=== PATIENT | male | born 1965 | race Caucasian/White ===

== ENCOUNTER 2020-04-19 07:31 | Observation (INO) | payer OTHER ==
--- NOTE | 2020-04-19 07:50 | RAD REPORT ---
EXAM DESCRIPTION: CT - Ct Stroke Brain Wo Cont - 04/19/2020 7:41 am CLINICAL HISTORY: Slurred speech COMPARISON: none TECHNIQUE: Computed axial tomography of the head was obtained. All CT scans are performed using dose optimization technique as appropriate and may include automated exposure control or mA/KV adjustment according to patient size. FINDINGS: An intracranial bleed is not seen . The ventricles are normal in caliber. No extra-axial fluid collection is noted. A small low-density area within the right cerebellum may represent an old infarction. Fluid within the sinuses/ mastoids is not seen. IMPRESSION: No acute intracranial abnormality is seen. If patient's symptoms persist MRI of the bra in would be recommended. Nilesh of the emergency room was notified at 7:44 a.m. April 19, 2020
[2020-04-19 08:13] LABS: Absolute Lymphocytes (CBC) 3.3 K/uL (0.7-4.9); Basophils % 0.4 % (0-1.3); Hematocrit 43.9 % (39.6-49.0); Lymphocytes % 39.9 % (15.3-44.8); MPV 10.1 fL (7.6-11.3); RBC Red Blood Cell Count 4.73 M/uL (4.33-5.43)
--- NOTE | 2020-04-19 08:14 | ER ---
Nurse's Notes [facility] Name: Rashid Sim Age: 54 yrs Sex: Male : 1965 Arrival Date: 04/19/2020 Time: 07:29 Bed 2 Private MD: Diagnosis: Transient cerebral ischemic attack, unspecified Presentation: 04/19 07:30 An acute neurological deficit is present. The patients blood glucose was checked before em arriving to the hospital and was found to be normal. 07:40 Chief complaint: EMS states: called out for slurred speech and right sided weakness em that started after his alarm went off at 0630, was having trouble speaking and had left sided facial droop, pt was having trouble speaking and became nauseous, was given 4 mg Zofran IV, pt taken to CT, BGL 158. Coronavirus screen: Proceed with normal triage. Patient denies a cough. Patient denies shortness of breath or difficulty breathing. Patient denies measured and/or subjective temperature greater than 100.4F prior to today's visit. Patient denies travel on a cruise ship or to a country the [facility] currently lists as an affected area. Patient denies contact with known and/or suspected case of COVID-19. Ebola Screen: Patient negative for fever greater than or equal to 101.5 degrees Fahrenheit, and additional compatible Ebola Virus Disease symptoms Patient denies exposure to infectious person. Patient denies travel to an Ebola-affected area in the 21 days before illness onset. No symptoms or risks identified at this time. Initial Sepsis Screen: Does the patient meet any 2 criteria? No. Patient's initial sepsis screen is negative. Does the patient have a suspected source of infection? No. Patient's initial sepsis screen is negative. Risk Assessment: Do you want to hurt yourself or someone else? Patient reports no desire to harm self or others. Onset of symptoms was April 19, 2020 at 06:30. 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 - Social history:: Smoking status: unknown. Screenin:43 Abuse screen: Denies threats or abuse. Denies injuries from another. Nutritional ph screening: No deficits noted. Tuberculosis screening: No symptoms or risk factors identified. Fall Risk No fall in past 12 months (0 pts). No secondary diagnosis (0 pts). IV access (20 points). Ambulatory Aid- None/Bed Rest/Nurse Assist (0 pts). Gait- Weak (10 pts.). Mental Status- Oriented to own ability (0 pts). Total Cowan Fall Scale indicates Low Risk Score (25-44 pts). Fall prevention measures have been instituted. Side Rails Up X 2 Frequent Obs/Assesments occuring As available Patient and Family Educated on Fall Prevention Program and strategies. Assessment: 07:29 Reassessment: Pt taken to CT via EMS stretcher, accompanied by Zurdo Velázquez RN. aa5 07:30 VAN Scoring: Arm Drift: Patients demonstrates NO arm weakness. Patient is VAN Negative. em Patient has been NPO before screening. The patient is alert, and able to follow commands. The patient exhibits slurred or garbled speech. Provider notified of the indication for Speech Therapy consult. The patient is exhibiting difficulty speaking. The patient does not exhibit difficulty understanding words. The patient is able to swallow own secretions with no drooling or need for suction. Patient tolerated one teaspoon of water. No drooling, immediate coughing, gurgling, or clearing of the throat was noted. The patient passed the bedside swallow screening. Oral medications may be given as ordered. Contact Physician for further diet orders. Provider notified of bedside swallow screening results: Isaac Starr MD. T-PA (Activase) Screening: Contraindications: Rapidly improving condition or minor deficit: Yes. 07:30 General: Appears uncomfortable, well groomed, well developed, well nourished, Behavior em is flat. Pain: Denies pain. Neuro: Level of Consciousness is awake, alert, obeys commands, Oriented to person, place, time, situation, Appropriate for age Weakness in right arm(s) leg(s) Speech is slurred. Cardiovascular: Capillary refill < 3 seconds Patient's skin is warm and dry. Respiratory: Airway is patent Respiratory effort is even, unlabored, Respiratory pattern is regular, symmetrical. GI: Abdomen is flat, Reports nausea, Patient currently denies vomiting. Derm: Skin is intact, is healthy with good turgor, Skin is pink, warm \T\ dry. Musculoskeletal: Capillary refill < 3 seconds, Range of motion: intact in all extremities. 07:41 Reassessment: Patient appears in no apparent distress at this time. dr Starr at bedside to assess pt, initial labs drawn by phlebotomy. 08:00 Reassessment: Patient appears in no apparent distress at this time. Patient is alert, em oriented x 3, equal unlabored respirations, skin warm/dry/pink. Patient states symptoms have improved. 08:50 Reassessment: Patient appears in no apparent distress at this time. Patient and/or em family updated on plan of care and expected duration. Pain level reassessed. Patient is alert, oriented x 3, equal unlabored respirations, skin warm/dry/pink. Patient states feeling better. 10:23 Reassessment: Patient appears in no apparent distress at this time. Patient and/or em family updated on plan of care and expected duration. Pain level reassessed. Patient is alert, oriented x 3, equal unlabored respirations, skin warm/dry/pink. 11:00 Reassessment: Patient appears in no apparent distress at this time. Patient and/or em family updated on plan of care and expected duration. Pain level reassessed. Patient is alert, oriented x 3, equal unlabored respirations, skin warm/dry/pink. 12:00 Reassessment: Patient appears in no apparent distress at this time. Patient and/or em family updated on plan of care and expected duration. Pain level reassessed. Patient is alert, oriented x 3, equal unlabored respirations, skin warm/dry/pink. Vital Signs: 07:42 BP 151 / 90; Pulse 75; Resp 16; Temp 97.2; Pulse Ox 100% on R/A; ph 09:34 BP 141 / 89; Pulse 58; Resp 18; Pulse Ox 97% on R/A; Pain 0/10; em 10:23 BP 146 / 92; Pulse 57; Resp 18; Pulse Ox 99% on R/A; em 11:00 BP 147 / 90; Pulse 54; Resp 18; Pulse Ox 98% on R/A; Pain 0/10; em 12:00 BP 135 / 62; Pulse 64; Resp 18; Pulse Ox 97% on R/A; em NIH Stroke Scale Scores: 07:30 NIHSS Score: 2 em ED Course: 07:29 Patient arrived in ED. em 07:30 Isaac Starr MD is Attending Physician. mh7 07:39 Zurdo Velázquez, ROSEANN is Primary Nurse. em 07:42 CT Stroke Brain w/o Contrast In Process Unspecified. EDMS 07:42 Arm band placed on Patient placed in an exam room, on a stretcher, on radiation monitor, ph on pulse oximetry. 07:43 Patient has correct armband on for positive identification. Placed in gown. Bed in low ph position. Call light in reach. Side rails up X2. monitoring and evaluation advisor on. Pulse ox on. NIBP on. Door closed. Noise minimized. Warm blanket given. 07:44 Triage completed. em 07:55 Initial lab(s) drawn, by wastewater analyst lab analyst, sent to lab. Inserted saline lock: 20 gauge in left ph forearm, using aseptic technique. Blood collected. 08:08 Stroke CXR 1 View In Process Unspecified. EDMS 08:11 Bart Anderson DO is Hospitalizing Provider. mh7 08:36 ETOH Level Sent. em 13:06 No provider procedures requiring assistance completed. IV discontinued, intact, em bleeding controlled, No redness/swelling at site. Pressure dressing applied. Administered Medications: 08:50 Drug: Aspirin Chewable Tablet 162 mg Route: PO; em 09:34 Follow up: Response: No adverse reaction em Point of Care Testing: Blood Glucose: 08:04 Blood Glucose: 153 mg/dL; em Ranges: Outcome: 08:13 Decision to Hospitalize by Provider. mh7 13:06 Admitted to Tele accompanied by tech, via stretcher, with chart, Report called to jagdish Georges RN 13:06 Condition: good 13:06 Instructed on the need for admit, Demonstrated understanding of instructions. 13:07 Patient left the ED. em NIH Stroke Scale - NIH Stroke Score Date: 04/19/2020 Time: 07:30 Total Score = 2 1a. Level of Consciousness (LOC) - 0(Alert) 1b. Level of Consciousness (LOC) (Year \T\ Age) - 0(Both) 1c. LOC Commands (Open \T\ Closes Eyes/Sales And Service Officer) - 0(Both) 2. Best Gaze (Lateral Gaze Paresis) - 0(Normal) 3. Visual Field Loss - 0(No visual loss) 4. Facial Palsy - 0(Normal) 5a. Left Arm: Motor (10-second hold) - 0(No drift) 5b. Right Arm: Motor (10-second hold) - 0(No drift) 6a. Left Leg: Motor (5-second hold - always test supine) - 0(No drift) 6b. Right Leg: Motor (5-second hold - always test supine) - 0(No drift) 7. Limb Ataxia (finger/nose \T\ heel/carney - test with eyes open) - 0(Absent) 8. Sensory Loss (pinprick arms/legs/face) - 0(Normal) 9. Best Language: Aphasia (description/naming/reading) - 1(Mild to moderate aphasia) 10. Dysarthria (speech clarity - read or repeat words) - 1(Mild to Moderate) 11. Extinction and Inattention (visual/tactile/auditory/spatial/personal) - 0(No abnormality) Initials: em Signatures: Dispatcher [employer] Zurdo Tapia RN ROSEANN em Tanehsa Narayan RN ROSEANN [email or web address] Radha Jackson RN RN ph Holmes, Maurice, MD MD mh7 Corrections: (The following items were deleted from the chart) 07:49 07:40 Chief complaint: EMS states: called out for slurred speech and right em sided weakness that started after his alarm went off at 0630, was having trouble speaking and had left sided facial droop, pt was having trouble speaking and became nauseous, was given 4 mg Zofran IV, pt taken to CT em
--- NOTE | 2020-04-19 08:14 | EDPHYS ---
Physician Documentation [facility] Name: Rashid Sim Age: 54 yrs Sex: Male : 1965 Arrival Date: 04/19/2020 Time: 07:29 Bed 2 Private MD: ED Physician Isaac Starr HPI: 04/19 07:50 This 54 yrs old Male presents to ER via EMS with complaints of S/S of mh7 Possible Stroke. 07:50 The patient's problem is reported as weakness, in the right upper extremity, in the mh7 right lower extremity. Onset: The symptoms/episode began/occurred this morning. Duration: This was a single incident. Context: the episode(s) was witnessed, by EMS personnel, by a significant other, symptoms became apparent occurred at home, occurred while the patient was lying down, Possible contributing factors include:. The symptoms are alleviated by nothing. The symptoms are aggravated by nothing. Severity of symptoms: At their worst the symptoms were severe this morning, in the emergency department the symptoms have resolved and did so just prior to arrival. Patient's baseline: Neuro: alert and fully oriented, Motor: no deficits, Ambulation: walks without assistance, Speech: normal. Patient states that his alarm went off at 6:30 am this morning. He then pressed the snooze button to sleep longer. When the alarm went off again he could not move the right side of his body. EMS on scene observed right side being flacid and slurred speech. They state that symptoms improved within five minutes and patient was able to move his right side without difficulty. He states that he was doing well yesterday and has never had this happen in the past.. 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 - Social history:: Smoking status: unknown. ROS: 07:50 Constitutional: Negative for fever, chills, and weight loss, Eyes: Negative for injury, mh7 pain, redness, and discharge, ENT: Negative for injury, pain, and discharge, Neck: Negative for injury, pain, and swelling, Cardiovascular: Negative for chest pain, palpitations, and edema, Respiratory: Negative for shortness of breath, cough, wheezing, and pleuritic chest pain, Abdomen/GI: Negative for abdominal pain, nausea, vomiting, diarrhea, and constipation, Back: Negative for injury and pain, : Negative for injury, bleeding, discharge, and swelling, MS/Extremity: Negative for injury and deformity, Skin: Negative for injury, rash, and discoloration, Psych: Negative for depression, anxiety, suicide ideation, homicidal ideation, and hallucinations, Allergy/Immunology: Negative for hives, rash, and allergies, Endocrine: Negative for neck swelling, polydipsia, polyuria, polyphagia, and marked weight changes, Hematologic/Lymphatic: Negative for swollen nodes, abnormal bleeding, and unusual bruising. Exam: 07:50 Radiologist reports: Negative mh7 07:50 Constitutional: This is a well developed, well nourished patient who is awake, alert, and in no acute distress. Head/Face: Normocephalic, atraumatic. Eyes: Pupils equal round and reactive to light, extra-ocular motions intact. Lids and lashes normal. Conjunctiva and sclera are non-icteric and not injected. Cornea within normal limits. Periorbital areas with no swelling, redness, or edema. ENT: Nares patent. No nasal discharge, no septal abnormalities noted. Tympanic membranes are normal and external auditory canals are clear. Oropharynx with no redness, swelling, or masses, exudates, or evidence of obstruction, uvula midline. Mucous membranes moist. Neck: Trachea midline, no thyromegaly or masses palpated, and no cervical lymphadenopathy. Supple, full range of motion without nuchal rigidity, or vertebral point tenderness. No Meningismus. Chest/axilla: Normal chest wall appearance and motion. Nontender with no deformity. No lesions are appreciated. Cardiovascular: Regular rate and rhythm with a normal S1 and S2. No gallops, murmurs, or rubs. Normal PMI, no JVD. No pulse deficits. Respiratory: Lungs have equal breath sounds bilaterally, clear to auscultation and percussion. No rales, rhonchi or wheezes noted. No increased work of breathing, no retractions or nasal flaring. Abdomen/GI: Soft, non-tender, with normal bowel sounds. No distension or tympany. No guarding or rebound. No evidence of tenderness throughout. Back: No spinal tenderness. No costovertebral tenderness. Full range of motion. Skin: Warm, dry with normal turgor. Normal color with no rashes, no lesions, and no evidence of cellulitis. MS/ Extremity: Pulses equal, no cyanosis. Neurovascular intact. Full, normal range of motion. 07:50 Psych: Awake, alert, with orientation to person, place and time. Behavior, mood, and affect are within normal limits. 07:50 Neuro: Orientation: is normal, Mentation: is normal, Memory: is normal, Cranial nerves: CN II- XII are normal as tested, Cerebellar function: is grossly normal, Motor: is normal, moves all fours, strength is normal, Sensation: is normal, Deep tendon reflexes are normal, Babinski testing is normal, seizure activity, is not displayed by the patient, Abnormal movements: there are no abnormal movements. 08:15 ECG was reviewed by the Attending Physician. [facility] Vital Signs: 07:42 BP 151 / 90; Pulse 75; Resp 16; Temp 97.2; Pulse Ox 100% on R/A; ph 09:34 BP 141 / 89; Pulse 58; Resp 18; Pulse Ox 97% on R/A; Pain 0/10; em 10:23 BP 146 / 92; Pulse 57; Resp 18; Pulse Ox 99% on R/A; em 11:00 BP 147 / 90; Pulse 54; Resp 18; Pulse Ox 98% on R/A; Pain 0/10; em 12:00 BP 135 / 62; Pulse 64; Resp 18; Pulse Ox 97% on R/A; em NIH Stroke Scale Scores: 07:30 NIHSS Score: 2 em MDM: 07:47 Patient medically screened. [facility] 08:09 Differential diagnosis: CVA, TIA, paralysis, metabolic disorder, drug effects. Data [facility] reviewed: vital signs, nurses notes, EMS record, radiologic studies, CT scan, plain films. Physician consultation: Navi Ramos MD was called at 07:50, was contacted at 07:51, regarding consult, patient's condition, and will see patient in inpatient room, would like admission per Dr. Bart Anderson DO. 08:15 Data interpreted: security monitor: rate is 75 beats/min, rhythm is normal sinus rhythm, [facility] regular, Interpretation: normal rate, normal rhythm, Pulse oximetry: on room air is 100 %. Interpretation: normal. 10:27 Counseling: I had a detailed discussion with the patient and/or guardian regarding: the [facility] historical points, exam findings, and any diagnostic results supporting the discharge/admit diagnosis, the presence of at least one elevated blood pressure reading (>120/80) during this emergency department visit, lab results, radiology results, the need for further work-up and treatment in the hospital. ED course: Well appearing, NAD, VSS, no focal neurological deficits. Awake, alert, and oriented x 3. Discussed all test results and findings and need for admission for further care and evaluation. Discussed with Dr. Ramos for Neurology consultation and Dr. Anderson for admission.. 04/19 07:30 Order name: Basic Metabolic Panel 04/19 07:30 Order name: CBC with Diff; Complete Time: 08:29 04/19 07:30 Order name: Protime (+inr); Complete Time: 08:29 04/19 07:30 Order name: Ptt, Activated; Complete Time: 08:29 04/19 07:32 Order name: Basic Metabolic Panel; Complete Time: 08:29 [facility] 04/19 07:49 Order name: UDS [facility] 04/19 07:49 Order name: Troponin (emerg Dept Use Only); Complete Time: 08:54 [facility] 04/19 07:49 Order name: Magnesium; Complete Time: 08:54 [facility] 04/19 07:49 Order name: Hepatic Function; Complete Time: 08:54 [facility] 04/19 07:49 Order name: CPK; Complete Time: 08:54 [facility] 04/19 07:49 Order name: Ckmb; Complete Time: 08:54 [facility] 04/19 07:49 Order name: ETOH Level; Complete Time: 08:54 [facility] 04/19 08:05 Order name: Glucose, Ancillary Testing; Complete Time: 08:14 [facility] 04/19 13:01 Order name: Lipid Profile [facility] 04/19 07:30 Order name: CT Stroke Brain w/o Contrast; Complete Time: 08:14 04/19 07:30 Order name: Stroke CXR 1 View 04/19 07:30 Order name: EKG; Complete Time: 07:32 04/19 07:30 Order name: Accucheck; Complete Time: 07:55 04/19 07:30 Order name: Cardiac monitoring; Complete Time: 07:55 04/19 07:30 Order name: EKG - Nurse/Tech; Complete Time: 07:56 em 04/19 07:30 Order name: IV Saline Lock; Complete Time: 07:56 em 04/19 07:30 Order name: Labs collected and sent; Complete Time: 07:56 em 04/19 07:30 Order name: NPO; Complete Time: 07:56 em 04/19 07:30 Order name: O2 Per Protocol; Complete Time: 07:56 em 04/19 07:30 Order name: O2 Sat Monitoring; Complete Time: 07:56 em 04/19 07:49 Order name: Call for Old Records; Complete Time: 07:52 mh7 04/19 07:49 Order name: Call for Old EKG; Complete Time: 07:52 7 04/19 13:01 Order name: T4,Total EDMS 04/19 13:01 Order name: Thyroid Stimulating Hormone EDMS EC:15 Rate is 63 beats/min. Rhythm is regular. QRS [place] is Normal. [place] interval is normal. QRS mh7 interval is normal. QT interval is normal. No Q waves. T waves are Normal. No ST changes noted. Clinical impression: Normal ECG. Administered Medications: 08:50 Drug: Aspirin Chewable Tablet 162 mg Route: PO; em 09:34 Follow up: Response: No adverse reaction em Point of Care Testing: Blood Glucose: 08:04 Blood Glucose: 153 mg/dL; em Ranges: Critical Glucose Levels:Adult <50 mg/dl or >400 mg/dl <40 mg/dl or >180 mg/dl Disposition: 04/19/20 08:13 Hospitalization ordered by Bart Anderson for Inpatient Admission. Preliminary diagnosis is Transient cerebral ischemic attack, unspecified. - Bed requested for Telemetry/MedSurg (Inpatient). - Status is Inpatient Admission. em - Condition is Stable. - Problem is new. - Symptoms have improved. NIH Stroke Scale - NIH Stroke Score Date: 04/19/2020 Time: 07:30 Total Score = 2 1a. Level of Consciousness (LOC) - 0(Alert) 1b. Level of Consciousness (LOC) (Year \T\ Age) - 0(Both) 1c. LOC Commands (Open \T\ Closes Eyes/Associate Engineer) - 0(Both) 2. Best Gaze (Lateral Gaze Paresis) - 0(Normal) 3. Visual Field Loss - 0(No visual loss) 4. Facial Palsy - 0(Normal) 5a. Left Arm: Motor (10-second hold) - 0(No drift) 5b. Right Arm: Motor (10-second hold) - 0(No drift) 6a. Left Leg: Motor (5-second hold - always test supine) - 0(No drift) 6b. Right Leg: Motor (5-second hold - always test supine) - 0(No drift) 7. Limb Ataxia (finger/nose \T\ heel/carney - test with eyes open) - 0(Absent) 8. Sensory Loss (pinprick arms/legs/face) - 0(Normal) 9. Best Language: Aphasia (description/naming/reading) - 1(Mild to moderate aphasia) 10. Dysarthria (speech clarity - read or repeat words) - 1(Mild to Moderate) 11. Extinction and Inattention (visual/tactile/auditory/spatial/personal) - 0(No abnormality) Initials: em Signatures: Dispatcher [employer] Janie Raman RN RN Zurdo Velázquez RN RN Kera Drew Maurice, MD MD mh7 Corrections: (The following items were deleted from the chart) 11: 08:13 Hospitalization Ordered by Bart Anderson DO for Inpatient Admission. dw Preliminary diagnosis is Transient cerebral ischemic attack, unspecified. Bed requested for Telemetry/MedSurg (Inpatient). Status is Inpatient Admission. Condition is Stable. Problem is new. Symptoms have improved. mh7 13:07 11:25 04/19/2020 08:13 Hospitalization Ordered by Bart Anderson DO for em Inpatient Admission. Preliminary diagnosis is Transient cerebral ischemic attack, unspecified. Bed requested for Telemetry/MedSurg (Inpatient). Status is Inpatient Admission. Condition is Stable. Problem is new. Symptoms have improved. dw
[2020-04-19 08:16] LABS: Protime INR 0.91
[2020-04-19 08:25] LABS: Potassium 3.7 mmol/L (3.5-5.1)
[2020-04-19 08:32] LABS: ALT/SGPT 35 U/L (12-78); AST/SGOT 17 U/L (15-37); Albumin 3.6 g/dL (3.4-5.0); Alkaline Phosphatase 52 U/L (45-117); Bilirubin Direct 0.2 mg/dL (0-0.2); Bilirubin Total 0.7 mg/dL (0.2-1.0); CKMB Creatine Kinase MB < 1.0 ng/mL (0.3-3.6); Creatine Phosphokinase 98 U/L (39-308); Magnesium 2.1 mg/dL (1.8-2.4); Protein, Total 7.3 g/dL (6.4-8.2); Troponin (Emerg Dept Use Only) < 0.02 ng/mL (0.0-0.045)
[2020-04-19] MEDS ORDERED: ASPIRIN 81 MG CHEWABLE TABLET ONE (08:46)
--- NOTE | 2020-04-19 08:56 | RAD REPORT ---
EXAM DESCRIPTION: Nuria Single View04/19/2020 8:07 am CLINICAL HISTORY: Chest pain COMPARISON: 2008 FINDINGS: The lungs appear clear of acute infiltrate. The heart is normal size IMPRESSION: No acute abnormalities displayed
--- NOTE | 2020-04-19 08:57 | P.HP ---
Certification for Inpatient Patient admitted to: Observation With expected LOS: <2 Midnights Patient will require the following post-hospital care: None Practitioner: I am a practitioner with admitting privileges, knowledge of patient current condition, hospital course, and medical plan of care. Services: Services provided to patient in accordance with Admission requirements found in Title 42 Section 412.3 of the Code of Federal Regulations Patient History Date of Service: 04/19/20 Primary Care Provider: none Reason for admission: Slurred speech, upper extremity weakness History of Present Illness: 54-year-old male with no prior medical problems presented to the emergency room by EMS after he woke up this morning around 6:30 a.m.. At that time he felt like his blood pressure was elevated. He had some difficulty waking up. He felt anxious. There is report of slurred speech. He reported bilateral upper extremity weakness. He tried to call his for help. When he got up to go to the bathroom he became weak and fell to the floor. He denied any chest pain, shortness of breath, or loss of consciousness. He denies any nausea, vomiting, diarrhea. At that time EMS was called. He was brought in to the emergency room. By the time he arrived to the emergency room his symptoms had resolved. CBC unremarkable. Sodium 141, potassium 3.7. BUN of 18, creatinine 1.05 with a GFR 73. Glucose was a 184. INR within normal range. Blood pressure and vital signs stable. CT scan unremarkable. The patient was admitted for further evaluation and observation. When I saw the patient in the ER, he appeared comfortable. Symptoms have resolved. Home medications list reviewed: Yes - Past Medical/Surgical History Diabetic: No -: Alcohol use Past Surgical History: Patient denies surgical history Psychosocial/ Personal History: Patient is - Family History Family History: Reviewed- Non-Contributory - Social History Smoking Status: Never smoker Alcohol use: Yes CD- Drugs: No Caffeine use: Yes Place of Residence: Home Review of Systems General: Weakness, As per HPI Eyes: Unremarkable ENT: Unremarkable Respiratory: Unremarkable Cardiovascular: Unremarkable Gastrointestinal: Unremarkable Genitourinary: Unremarkable Musculoskeletal: As per HPI Neurological: As per HPI Lymphatics: Unremarkable Physical Examination - Physical Exam General: Alert, In no apparent distress, Oriented x3, Cooperative HEENT: Atraumatic, Normocephalic, PERRLA, Mucous membr. moist/pink Neck: Supple, No Thyromegaly Respiratory: Clear to auscultation bilaterally, Normal air movement Cardiovascular: Normal pulses, Regular rate/rhythm Gastrointestinal: Normal bowel sounds, Soft and benign, Non-distended, No tenderness, No masses, No rebound, No guarding Musculoskeletal: No erythema, No tenderness, No warmth Integumentary: No tenderness/swelling, No erythema, No warmth, No cyanosis Neurological: Normal speech, Normal strength at 5/5 x4 extr, Normal tone, Normal affect - Studies Laboratory Data (last 24 hrs) 04/19/20 07:40: Magnesium 2.1, Total Bilirubin 0.7, AST 17, ALT 35, Alkaline Phosphatase 52 04/19/20 07:40: PT 10.7, INR 0.91, APTT 27.6 04/19/20 07:40: WBC 8.4, Hgb 14.6, Hct 43.9, Plt Count 277 04/19/20 07:40: Sodium 141, Potassium 3.7, BUN 18, Creatinine 1.05, Glucose 184 H Assessment and Plan - Plan Impression: Slurred speech/Bilateral upper extremity weakness secondary to TIA, resolved Hyperglycemia suspect underlying diabetes mellitus type 2 Alcohol use Plan: Slurred speech/Bilateral upper extremity weakness secondary to TIA, resolved: Patient we admitted for further evaluation and observation. Stroke protocol MRI, echocardiogram and carotid Doppler ordered. Stroke protocol to be followed. Will aspirin, Plavix, folic acid. Will hold off on blood pressure medication at this time as blood pressures were stable. Will check fasting lipid panel, tsh, and A1c. Will order physical therapy, occupational therapy evaluate patient. Will consult neurology for further recommendation. If patient does well and workup unremarkable possible discharge later today. Hyperglycemia suspect underlying diabetes mellitus type 2: Blood sugar was slightly elevated this morning. Will check A1c. Will place on sliding scale. Will start ADA diet. Alcohol use: Will check urine drug screen and alcohol level. Cessation education will be provided. Discharge Plan: Home Plan to discharge in: 24 Hours - Advance Directives Does patient have a Living Will: No Does patient have a Durable POA for Healthcare: No - Code Status/Comfort Care Code Status Assessed: Yes (Full code) Time Spent Managing Pts Care (In Minutes): 55
[2020-04-19] MEDS ORDERED: CLOPIDOGREL 75 MG TABLET PO SCH (12:19)
[2020-04-19] MEDS ORDERED: NA CHLORIDE 0.9% 1,000 ML IV SCH (12:19)
[2020-04-19] MEDS ORDERED: ACETAMINOPHEN 500 MG TAB PO PRN (12:19)
[2020-04-19] MEDS ORDERED: ASPIRIN EC 81 MG TAB PO SCH (12:19)
[2020-04-19] MEDS ORDERED: FOLIC ACID 1 MG TABLET PO SCH (12:19)
[2020-04-19] MEDS ORDERED: ONDANSETRON 4 MG/2 ML VIAL IV PRN (12:19)
[2020-04-19] MEDS: INSULIN -REGULAR HUMAN 50 UNIT/0.5 ML ML SQ SCH ×2 (12:19→16:01)
[2020-04-19] MEDS ORDERED: ENOXAPARIN 40 MG/0.4 ML SQ SCH (12:19)
[2020-04-19] MEDS ORDERED: POTASSIUM 25 MEQ EFFERV TAB PO ONE (12:24)
[2020-04-19 13:00] LABS: Thyroid Stimulating Hormone 1.8 uIU/mL (0.360-3.740)
[2020-04-19 13:09] VITALS: BMI 31.3
--- NOTE | 2020-04-19 15:11 | RAD REPORT ---
EXAM DESCRIPTION: - CP - 04/19/2020 2:49 pm CLINICAL HISTORY: TIA COMPARISON: No comparisons TECHNIQUE: Real-time sonographic evaluation of bilateral carotid and vertebral systems was performed . Angel scale and Doppler interrogation were performed with waveform tracing bilaterally. FINDINGS: Normal high resistance waveforms are noted in both external carotid arteries. The common c arotid arteries and internal carotid arteries show normal low resistance waveforms. No significant plaque formation is seen. Peak systolic and end diastolic velocity values and the ICA/ CCA ratios are in the non-hemodynamically significant range. Antegrade flow seen in both vertebral arteries. Velocity values and ratios were recorded and are retained in the patient's imaging records. IMPRESSION: No significant atherosclerotic changes noted. No evidence of a hemodynamically significant stenosis.
--- NOTE | 2020-04-19 15:36 | EKG ---
Test Date: 2020-04-19 Test Time: 08:07:10 Die Stamper: JOY MEASUREMENT RESULTS: Intervals: Rate: 63 UT: 174 QRSD: 98 QT: 446 QTc: 456 Joshua: P: 48 UT: 174 QRS: 21 T: 50 INTERPRETIVE STATEMENTS: Normal sinus rhythm Normal ECG No previous ECG available for comparison Electronically Signed On 04-19-20 15:35:31 CDT by Wilber Downs
[2020-04-19 15:40] VITALS: O2SAT 97
[2020-04-19 15:58] VITALS: TEMP 98.2
--- NOTE | 2020-04-19 16:48 | RAD REPORT ---
EXAM DESCRIPTION: MRI - Brain W/Wo Cont - 04/19/2020 4:11 pm CLINICAL HISTORY: slurred speech; UE weakness COMPARISON: MRA Head Wo Cont dated 04/19/2020; MRA Neck W/Wo Cont dated 04/19/2020 TECHNIQUE: Sagittal and axial T1-weighted images were obtained. Axial PD/heavily T2-weighted and T2- FLAIR images were obtained along with axial DWI/ADC mapping sequences. Coronal heavily T2 weighted s equence obtained. Axial and coronal post-contrast T1-weighted images were also obtained. A 20 ml Mul tihance contrast following utilized. FINDINGS: Diffusion-weighted imaging shows small foci of increased signal in the left cerebellum and a questionable punctate focus posteromedial right occipital lobe. The cerebellum findings have a cor responding diminished signal on ADC mapping. No acute cerebral or brainstem infarctions. No associate d mass effect or edema. No other area of acute infarction. No mass effect, edema or shift of midline structures. No extra-axi al fluid collections. Angel matter -white matter junction preserved. Signal voids are seen as a normal finding in the major intracranial vessels. Post-contrast images show normal enhancement. No dural thickening. Mastoid air cells and paranasal sinuses are clear. IMPRESSION: Small nonhemorrhagic acute infarction changes are present in the left cerebellum. A punctate area of diffusion signal abnormality in the posteromedial right occipital lobe does not egan ve correlate signal abnormality on any other sequence and probably is artifact. There is no hemorrhage, edema or acute intracranial finding otherwise noted.
[2020-04-19 16:58] LABS: CKMB Creatine Kinase MB 3.3 ng/mL (0.3-3.6); Creatine Phosphokinase 214 U/L (39-308); Troponin I < 0.02 ng/mL (0.0-0.045)
--- NOTE | 2020-04-19 16:58 | RAD REPORT ---
EXAM DESCRIPTION: MRI - MRA Head Wo Cont - 04/19/2020 4:11 pm CLINICAL HISTORY: CVA COMPARISON: None. TECHNIQUE: Axial and coronal 3D [id number] image acquisition was performed. 3D rotational images were generated with source and reconstruction images reviewed. Horizontal and vertical axis rotation al views generated using MIP protocol. FINDINGS: Left vertebral artery is dominant with a very small distal right vertebral artery between the posterior inferior cerebellar artery and the basilar artery. Irregular contour and signal loss ch anges are present at the distal basilar artery and junction of the basilar artery with the bilateral posterior cerebral arteries. The acute infarction changes detailed on the MR brain study involve the superior cerebellum. The basilar artery abnormality would include the superior cerebellar artery whic h supplies the area of infarcted parenchyma. Detail on the posterior cerebral arteries is limited. Th ere were no infarction changes in the area of brain supplied by the [employer] vessels. Anterior and middle cerebral artery distribution show no suspicious findings. No suspicious finding i n the distal internal carotid arteries. IMPRESSION: Irregular atherosclerotic changes in the distal aspect of the basilar artery causing sig nificant narrowing. The acute infarction changes in the superior left cerebellum are in the left superior cerebellar david ry vascular distribution. This vessel arises from the narrowed and irregular portion of the distal ba silar artery.
--- NOTE | 2020-04-19 16:59 | RAD REPORT ---
EXAM DESCRIPTION: MRI - MRA Neck W/Wo Cont - 04/19/2020 4:11 pm CLINICAL HISTORY: CVA COMPARISON: None TECHNIQUE: MR angiography of the cervical vasculature performed. Coronal imaging plane acquisition u tilized. A 20 MultiHance contrast volume was utilized. Coronal reformatted images were generated and reviewed. Vertical axis 3D rotational projections obtained using maximum intensity projection protoco l. FINDINGS: Aortic arch is 3 vessel with no origins stenosis. Dominant left vertebral artery on the sm aller right vertebral artery show no origins stenoses. Bilateral common carotid and internal carotid arteries show no stenosis, dissection or significant at herosclerotic change. No focal vertebral abnormality identified. IMPRESSION: Unremarkable MRA neck examination.
--- NOTE | 2020-04-19 17:55 | P.DS ---
Admission Date: 04/19/20 Discharge Date: 04/19/20 Primary Care Provider: none Disposition: ROUTINE DISCHARGE Discharge Condition: GOOD Reason for Admission: Slurred speech, upper extremity weakness Consultations: Neurology-Dr. Ramos Procedures: MRI Brain: FINDINGS: Diffusion-weighted imaging shows small foci of increased signal in the left cerebellum and a questionable punctate focus posteromedial right occipital lobe. The cerebellum findings have a corresponding diminished signal on ADC mapping. No acute cerebral or brainstem infarctions. No associated mass effect or edema. No other area of acute infarction. No mass effect, edema or shift of midline structures. No extra-axial fluid collections. Angel matter -white matter junction preserved. Signal voids are seen as a normal finding in the major intracranial vessels. Post-contrast images show normal enhancement. No dural thickening. Mastoid air cells and paranasal sinuses are clear. IMPRESSION: Small nonhemorrhagic acute infarction changes are present in the left cerebellum. A punctate area of diffusion signal abnormality in the posteromedial right occipital lobe does not have correlate signal abnormality on any other sequence and probably is artifact. There is no hemorrhage, edema or acute intracranial finding otherwise noted. MRA Brain: FINDINGS: Left vertebral artery is dominant with a very small distal right vertebral artery between the posterior inferior cerebellar artery and the basilar artery. Irregular contour and signal loss changes are present at the distal basilar artery and junction of the basilar artery with the bilateral posterior cerebral arteries. The acute infarction changes detailed on the MR brain study involve the superior cerebellum. The basilar artery abnormality would include the superior cerebellar artery which supplies the area of infarcted parenchyma. Detail on the posterior cerebral arteries is limited. There were no infarction changes in the area of brain supplied by the [employer] vessels. Anterior and middle cerebral artery distribution show no suspicious findings. No suspicious finding in the distal internal carotid arteries. IMPRESSION: Irregular atherosclerotic changes in the distal aspect of the basilar artery causing significant narrowing. The acute infarction changes in the superior left cerebellum are in the left superior cerebellar artery vascular distribution. This vessel arises from the narrowed and irregular portion of the distal basilar artery MRA Neck: FINDINGS: Aortic arch is 3 vessel with no origins stenosis. Dominant left vertebral artery on the smaller right vertebral artery show no origins stenoses. Bilateral common carotid and internal carotid arteries show no stenosis, dissection or significant atherosclerotic change. No focal vertebral abnormality identified. IMPRESSION: Unremarkable MRA neck examination. Carotid doppler: FINDINGS: Normal high resistance waveforms are noted in both external carotid arteries. The common carotid arteries and internal carotid arteries show normal low resistance waveforms. No significant plaque formation is seen. Peak systolic and end diastolic velocity values and the ICA/CCA ratios are in the non-hemodynamically significant range. Antegrade flow seen in both vertebral arteries. Velocity values and ratios were recorded and are retained in the patient's imaging records. IMPRESSION: No significant atherosclerotic changes noted. No evidence of a hemodynamically significant stenosis. Impression: Slurred speech/Bilateral upper extremity weakness secondary to small nonhemorrhagic acute infarct in the left cerebellum Hyperglycemia with noted pre diabetes Alcohol use Hypertension Hyperlipidemia Brief History of Present Illness: 54-year-old male with no prior medical problems presented to the emergency room by EMS after he woke up this morning around 6:30 a.m.. At that time he felt like his blood pressure was elevated. He had some difficulty waking up. He felt anxious. There is report of slurred speech. He reported bilateral upper extremity weakness. He tried to call his for help. When he got up to go to the bathroom he became weak and fell to the floor. He denied any chest pain, shortness of breath, or loss of consciousness. He denies any nausea, vomiting, diarrhea. At that time EMS was called. He was brought in to the emergency room. By the time he arrived to the emergency room his symptoms had resolved. CBC unremarkable. Sodium 141, potassium 3.7. BUN of 18, creatinine 1.05 with a GFR 73. Glucose was a 184. INR within normal range. Blood pressure and vital signs stable. CT scan unremarkable. The patient was admitted for further evaluation and observation. When I saw the patient in the ER, he appeared comfortable. Symptoms have resolved. Hospital Course: Patient presented with slurred speech and bilateral upper extremity weakness. Patient found to have small nonhemorrhagic acute infarct in the left cerebellum. This was confirmed by MRI. Patient symptoms have resolved. Patient doing well at this time. Patient seen and evaluated by Neurology. Neurology recommends discharge at this time. At discharge patient will continue with aspirin 81 mg daily, Plavix 75 mg daily, lisinopril 10 mg daily, Lipitor 40 mg daily, and folic acid 1 mg daily. Recommend alcohol cessation. Recommend compliance with medication patient may follow up with neurology in 2-4 weeks to follow up this hospitalization. Education on CVA, hypertension, hyperlipidemia will be provided. As mentioned above patient was started on lisinopril 10 mg daily for his hypertension. Recommend to monitor his blood pressure daily. Recommend to maintain blood pressure less 150/80. Further adjustment may be required. Recommend follow up with PCP to further adjust his medication. Patient with hyperlipidemia. LDL elevated. At discharge patient will continue with Lipitor 40 mg daily. Patient will continue with a heart healthy diet. Recommend to recheck fasting lipid panel in 4-6 weeks to monitors progress. Patient was evaluated for diabetes. Patient found to have some hyperglycemia. A1c 5.9. Patient with pre diabetes. Recommend to monitor closely. Patient may have repeat A1c in 3-6 months to monitors progress. Patient with alcohol use. Alcohol cessation education provided. Cessation recommended. Vital Signs/Physical Exam: Temp Pulse Resp BP Pulse Ox 98.2 F 60 18 156/82 H 97 04/19/20 15:58 04/19/20 15:58 04/19/20 15:58 04/19/20 15:58 04/19/20 15:58 General: Alert, In no apparent distress, Oriented x3, Cooperative HEENT: Atraumatic Neck: Supple Respiratory: Clear to auscultation bilaterally, Normal air movement Cardiovascular: Normal pulses, Regular rate/rhythm Gastrointestinal: Normal bowel sounds, Soft and benign, Non-distended, No tenderness, No masses, No rebound, No guarding Musculoskeletal: No erythema, No tenderness, No warmth Integumentary: No erythema, No warmth, No cyanosis Neurological: Normal speech, Normal strength at 5/5 x4 extr, Normal tone, Normal affect Laboratory Data at Discharge: WBC 8.4 K/uL (4.3-10.9) 04/19/20 07:40 Hgb 14.6 g/dL (13.6-17.9) 04/19/20 07:40 Hct 43.9 % (39.6-49.0) 04/19/20 07:40 Plt Count 277 K/uL (152-406) 04/19/20 07:40 PT 10.7 SECONDS (9.5-12.5) 04/19/20 07:40 INR 0.91 04/19/20 07:40 APTT 27.6 SECONDS (24.3-36.9) 04/19/20 07:40 Sodium 141 mmol/L (136-145) 04/19/20 07:40 Potassium 3.7 mmol/L (3.5-5.1) 04/19/20 07:40 BUN 18 mg/dL (7-18) 04/19/20 07:40 Creatinine 1.05 mg/dL (0.55-1.3) 04/19/20 07:40 Glucose 184 mg/dL (74-106) H 04/19/20 07:40 Magnesium 2.1 mg/dL (1.8-2.4) 04/19/20 07:40 Total Bilirubin 0.7 mg/dL (0.2-1.0) 04/19/20 07:40 AST 17 U/L (15-37) 04/19/20 07:40 ALT 35 U/L (12-78) 04/19/20 07:40 Alkaline Phosphatase 52 U/L (45-117) 04/19/20 07:40 Troponin I < 0.02 ng/mL (0.0-0.045) 04/19/20 16:25 Triglycerides 120 mg/dL (<150) 04/19/20 07:40 Cholesterol 216 mg/dL (<200) H 04/19/20 07:40 HDL Cholesterol 49 mg/dL (40-60) 04/19/20 07:40 Cholesterol/HDL Ratio 4.41 04/19/20 07:40 Home Medications: Aspirin [Aspirin EC 81 MG] 81 mg PO DAILY #90 tablet. 04/19/20 Atorvastatin Calcium [Lipitor] 40 mg PO BEDTIME #30 tab 04/19/20 Clopidogrel Bisulfate [Plavix*] 75 mg PO DAILY #30 tablet 04/19/20 Folic Acid 1 mg PO DAILY #30 tablet 04/19/20 lisinopriL [Prinivil*] 10 mg PO DAILY #30 tab 04/19/20 New Medications: Aspirin [Aspirin EC 81 MG] 81 mg PO DAILY #90 tablet. Folic Acid 1 mg PO DAILY #30 tablet Atorvastatin Calcium [Lipitor] 40 mg PO BEDTIME #30 tab Clopidogrel Bisulfate [Plavix*] 75 mg PO DAILY #30 tablet lisinopriL [Prinivil*] 10 mg PO DAILY #30 tab Patient Discharge Instructions: 1. Recommend follow up with PCP in 1 week to follow up this hospitalization. 2. Patient presented with slurred speech and bilateral upper extremity weakness. Patient found to have small nonhemorrhagic acute infarct in the left cerebellum. This was confirmed by MRI. Patient symptoms have resolved. Patient doing well at this time. Patient seen and evaluated by Neurology. Neurology recommends discharge at this time. At discharge patient will continue with aspirin 81 mg daily, Plavix 75 mg daily, lisinopril 10 mg daily, Lipitor 40 mg daily, and folic acid 1 mg daily. Recommend alcohol cessation. Recommend compliance with medication patient may follow up with neurology in 2-4 weeks to follow up this hospitalization. Education on CVA, hypertension, hyperlipidemia will be provided. 3. As mentioned above patient was started on lisinopril 10 mg daily for his hypertension. Recommend to monitor his blood pressure daily. Recommend to maintain blood pressure less 150/80. Further adjustment may be required. Recommend follow up with PCP to further adjust his medication. 4. Patient with hyperlipidemia. LDL elevated. At discharge patient will continue with Lipitor 40 mg daily. Patient will continue with a heart healthy diet. Recommend to recheck fasting lipid panel in 4-6 weeks to monitors progress. 5. Patient was evaluated for diabetes. Patient found to have some hyperglycemia. A1c 5.9. Patient with pre diabetes. Recommend to monitor closely. Patient may have repeat A1c in 3-6 months to monitors progress. 6. Patient with alcohol use. Alcohol cessation education provided. Cessation recommended. Diet: AHA Activity: Ad salomon Followup: Navi Ramos MD [ASSOCIATE-ACTIVE - CAN ADMIT] - (follow up in 1 month, call to schedule appointment) Time spent managing pt's care (in minutes): 55
[2020-04-19 19:27] VITALS: BP 160/83
[2020-04-19] MEDS ORDERED: ATORVASTATIN 40 MG TAB PO SCH (21:00)
[2020-04-20] MEDS ORDERED: lisinopriL 10 MG TAB PO SCH (09:00)
--- NOTE | 2020-04-23 08:28 | CON ---
Reason For Consultation: Consultation called by Dr. Anderson because of stroke. History Of Present Illness: Mr. Sim is a 54-year-old patient who admits to no prior medical problems who comes into [facility] on 04/19/2020 at 7:20 a.m. with symptoms of slurred speech, diffuse weakness, but more difficulty maintaining balance and falling to the right side when ambulating. At [facility], he was evaluated by head CT scan done at 7:41 a.m. The patient was not sure when his symptoms began, he had right-sided weakness, noted off and on at about 6:30 a.m. when he had the trouble speaking and some facial droop especially on the left side, but did not give a specific time of onset. Therefore, he was not felt to be a candidate for tPA. He did not have any subjective fevers, cough, shortness of breath. No symptoms consistent with COVID-19. His head CT scan was negative for any acute ischemic or hemorrhagic change. However, given the potential for stroke, the patient was admitted for stroke workup. Brain MRI done, they identified small nonhemorrhagic acute infarct in left cerebellum was a punctate area of diffuse signal abnormality in the posterior medial right occipital lobe, which looks to be an artifact per the radiologist. His brain magnetic resonance angiogram showed irregular arthrosclerotic changes in the distal aspect of the basilar artery which caused significant narrowing, potentially treated the cerebellar infarct. Also, there is an infarct change in the superior left cerebellum and superior cerebellar artery vascular distribution is the one from which this most likely emanated and that vessel arise from a narrow irregular portion of the distal basilar artery. He has neck magnetic resonance angiogram that was unremarkable. His additional workup included carotid artery ultrasound studies, which showed no hemodynamically significant stenosis. His electrocardiogram showed a normal sinus rhythm and normal study. Laboratory Data: Laboratory studies showed a normal complete blood count with differential, normal coagulation panel, and the chemistries reveal elevated blood glucose of 284, chloride slightly elevated, otherwise normal. Liver function studies were normal. LDL cholesterol elevated at 43, HDL cholesterol was 49. His calcium and magnesium were unremarkable and a urine tox screen was normal. His serum alcohol was less than 10. The patient did receive fluids in the emergency room. He was on aspirin, Lipitor, Plavix 75 mg, folic acid 1 mg, DVT prophylaxis with Lovenox. Past Medical History: As indicated. Surgical History: None. Social History: Admits to some cigarette smoking and alcohol use. Allergies: NO KNOWN DRUG ALLERGIES. Review of Systems: He denies any fevers, chills, nausea, vomiting, myalgias, arthralgias, rash, headache, weight change, psychiatric issue, genitourinary and gastro issues. Physical Examination: Vital Signs: Blood pressure 160/83, pulse 66, respiratory rate 16, temperature 98.1, oxygen saturation 98% on room air, weight 212 pounds, height 5 feet 9 inches, BMI 31.3. General: This morning, he is in a hospital bed. at bedside in no acute distress. Head: Normocephalic, atraumatic. Eyes: His sclerae are anicteric. Oropharynx: [place] and moist. Neck: Supple. Chest: Clear. Heart: Regular. Extremities: Show no clubbing, cyanosis, or edema. Neurologic: Alert, oriented to situation, place, and person. No expressive or receptive aphasias. Cranial nerves 2 through 12 are intact by exam. Motor examination in the upper and lower extremity is intact, proximally and distally is 5/5. Coordination exam, some dysmetria noted on the right finger nose and finger movements, right heel to chin. Left side intact in upper and lower extremity. Reflexes symmetric 2+ upper and lower extremities. Sensation intact in upper and lower extremities. Assessment: Mr. Sim is 54-year-old patient with likely untreated hypertension and possibly diabetes mellitus, alcohol abuse and cigarette abuse as possible etiologies for this posterior circulation cerebellar stroke. He has mild residual deficit of slurred speech. He has no swallowing difficulties, incoordination, sensory problems or weakness. He may require outpatient speech therapy. Plan: 1. Discharge home on high-dose statin if indicated. Also aspirin, Plavix, folic acid, told about drinking 8 to 10 glasses of water daily. 2. Followup in the my office 1 month after discharge. JAS/KLAUDIA Voice ID: [id number] Report ID: [id number] ALEJANDRO
== END 2020-04-19 19:30 | disposition home or self-care (01) ==
LOC: ER 07:31 → ERHOLD 08:32 → 4TH 12:26
PROVIDERS: ADMIT Family Medicine; ATTEND Family Medicine
DX: G45.9 Transient cerebral ischemic attack, unspecified (principal); R73.9 Hyperglycemia, unspecified; R29.702 NIHSS score 2; I10 Essential (primary) hypertension; E78.5 Hyperlipidemia, unspecified; F10.10 Alcohol abuse, uncomplicated; F17.210 Nicotine dependence, cigarettes, uncomplicated
CPT/HCPCS: 93005; 85025; 80048; 36415; 80320; 83735; 82550 ×2; 85610; 80061; 82947 ×3; 80076; 85730; 84436; 84443; 83036; 84484 ×2; 82553 ×2; 70450; 71045; 93880; 70553; 70544; 70549; 97112; 97116; 97161; 99285; A9577; J1650; J7030; G0378 ×2

== ENCOUNTER 2021-10-27 05:56 | Emergency (ER) | payer OTHER ==
[2021-10-27 06:28] LABS: Absolute Lymphocytes (CBC) 4.3 K/uL (0.7-4.9); Basophils % 0.6 % (0-1.3); Hematocrit 44.9 % (39.6-49.0); Lymphocytes % 37.6 % (15.3-44.8); MPV 9.1 fL (7.6-11.3); RBC Red Blood Cell Count 4.81 M/uL (4.33-5.43)
[2021-10-27 06:39] LABS: Protime INR 0.97
[2021-10-27 06:46] LABS: ALT/SGPT 56 U/L (12-78); AST/SGOT 21 U/L (15-37); Albumin 3.5 g/dL (3.4-5.0); Alkaline Phosphatase 50 U/L (45-117); BUN Blood Urea Nitrogen 16 mg/dL (7-18); Bicarbonate 24 mmol/L (21-32); Bilirubin Direct 0.1 mg/dL (0-0.2); Bilirubin Total 0.3 mg/dL (0.2-1.0); Glucose Level 195 mg/dL (74-106); Magnesium 2.2 mg/dL (1.8-2.4); Potassium 3.6 mmol/L (3.5-5.1); Protein, Total 7.1 g/dL (6.4-8.2); Sodium Level 142 mmol/L (136-145); Troponin (Emerg Dept Use Only) < 0.02 ng/mL (0.0-0.045)
[2021-10-27 06:51] LABS: NT PRO-BNP < 5 pg/mL (<125)
[2021-10-27] MEDS ORDERED: NA CHLORIDE 0.9% 500 ML ONE (07:10)
--- NOTE | 2021-10-27 07:28 | RAD REPORT ---
EXAM DESCRIPTION: CT - Head Brain Wo Cont - 10/27/2021 7:06 am CLINICAL HISTORY: DIZZINESS COMPARISON: Ct Stroke Brain Wo Cont dated 04/19/2020 TECHNIQUE: Axial 5 mm thick images of the head were obtained without IV contrast. All CT scans are performed using dose optimization technique as appropriate and may include automated exposure control or mA/KV adjustment according to patient size. FINDINGS: No intracranial hemorrhage, mass, edema or shift of mid-line structures. No acute cortical based infarction, cortical edema or sulcal effacement seen. No abnormal extra-axial fluid collection s. Ventricles are normal. No measurable atrophy changes seen. Calcifications are present in the dista l vertebral artery with a dense left vertebral artery and basilar artery. This is a change from the 2 020 study. A dense artery can be indirect evidence vessel occlusion. Mastoid air cells and visualized portions of the paranasal sinuses are clear. No acute bony findings. IMPRESSION: No hemorrhage or acute brain parenchymal abnormality seen. Patient has a dense distal left vertebral artery and basilar artery compared to 2020. This can be ind irect evidence of vessel occlusion or CVA. Correlation is needed with any stroke-like symptoms. Follow-up MRI stroke protocol study or follow-up CTA head and neck would be suggested.
[2021-10-27 08:19] LABS: SARS-COV-2 RT PCR NEGATIVE (NEGATIVE)
--- NOTE | 2021-10-27 08:40 | RAD REPORT ---
EXAM DESCRIPTION: CT - Head angio - 10/27/2021 8:05 am CLINICAL HISTORY: DIZZINESS, stroke-like symptoms, suspicious CT head study for possible vertebrobas ilar occlusion TECHNIQUE: During dynamic enhancement using nonionic IV contrast, axial 1 millimeter thick images of the head were obtained. Sagittal and axial reconstruction images were generated using MIP technique and reviewed. All CT scans are performed using dose optimization technique as appropriate and may include automated exposure control or mA/KV adjustment according to patient size. COMPARISON: CT head same date FINDINGS: No aneurysm or vascular malformation identified. Major venous sinuses are patent. The anterior and middle cerebral artery distribution show no suspicious findings. Right posterior cer ebral artery is unremarkable. There is suspicion for small focal thrombus at the origin of the left p osterior cerebral artery with approximately 50% origin stenosis. More distally the left CEMENTER MACHINE is unrema rkable. The nondominant distal right vertebral artery is unremarkable. The left distal vertebral david ry is occluded at the C1 level continuing to the junction with the basilar artery. There is thrombus within the entire length of the basilar artery causing 50% stenosis. IMPRESSION: Occlusion of the left vertebral artery from the C1 level distally to the junction with the basilar artery. Thrombus within the basilar artery causing at least 50% stenosis. There is probable thrombus in the o rigin of the left posterior cerebral artery. Remaining vessels are unremarkable.
--- NOTE | 2021-10-27 08:44 | RAD REPORT ---
EXAM DESCRIPTION: CT - Neck Angio - 10/27/2021 8:05 am CLINICAL HISTORY: Dizziness, stroke-like symptoms, abnormal CT study suspicious for left vertebrobas ilar occlusion TECHNIQUE: During dynamic enhancement using nonionic IV contrast, axial 2 mm thick images of the nec k were obtained. Sagittal and axial reconstruction images were generated using MIP technique and revi ewed. All CT scans are performed using dose optimization technique as appropriate and may include automated exposure control or mA/KV adjustment according to patient size. COMPARISON: CT head same date, CTA head same date FINDINGS: No aneurysm or vascular malformation identified. No carotid or vertebral dissection. Aortic arch is not fully visualized. Innominate artery is mildly tortuous. Origin of the right common carotid artery is partially obscured due to the spray artifact from right-side venous contrast densi ty. Proximal right common carotid abnormality is unlikely. The bilateral common carotid and internal carotid arteries are otherwise unremarkable. The non dominant right vertebral artery shows no dissect ion, stenosis or acute finding. From origin to the C1 level the left vertebral artery is unremarkable. Left vertebral artery is occlu ded from the C1 level to the junction with the basilar artery. Thrombus fills the basilar artery caus ing 50% stenosis. No vasculitis findings. IMPRESSION: Occlusion of the left vertebral artery from C1 level to the basilar artery junction. Thrombus causing 50% stenosis along the visualize length of the basilar artery.
[2021-10-27] MEDS ORDERED: ASPIRIN EC 81 MG TAB PO ONE (08:55)
--- NOTE | 2021-10-27 09:03 | EDPHYS ---
Physician Documentation [facility] Name: Rashid Sim Age: 56 yrs Sex: Male : 1965 Arrival Date: 10/27/2021 Time: 05:59 Bed 16 Private MD: ED Physician Isaac Starr HPI: 10/27 06:18 This 56 yrs old Male presents to ER via EMS with complaints of Dizziness. pm1 06:18 The patient presents with dizziness. Onset: The symptoms/episode began/occurred this pm1 morning, at 04:30, upon waking up to go to the restroom. Context: occurred at home, just prior to the episode the patient experienced no apparent symptoms. Modifying factors: The symptoms are alleviated by nothing, the symptoms are aggravated by nothing. Associated signs and symptoms: Pertinent positives: headache, nausea, Pertinent negatives: abdominal pain, chest pain, focal weakness, numbness, shortness of breath, tingling, vomiting. Severity of symptoms: in the emergency department the symptoms are unchanged. Patient's baseline: Neuro: alert and fully oriented, Motor: no deficits, Ambulation: walks without assistance, Speech: normal. The patient has not experienced similar symptoms in the past. The patient has not recently seen a physician, the patient's primary care provider is Dr. Obdulio Reyes. Upon waking up to go to urinate at 0430 today, patient reported dizziness. No focal deficits, visual changes, or changes in speech or mentation. Historical: - Allergies: 06:24 No Known Allergies; lp1 - Home Meds: 06:24 Plavix 75 mg Oral tab 1 tab once daily [Active]; atorvastatin 40 mg oral tab 1 tab once lp1 daily [Active]; folic acid 1 mg Oral tab 1 tab once daily [Active]; losartan 25 mg oral tab 0.5 tab once daily [Active]; - PMHx: 06:24 rectal fistula; CVA; Hypertensive disorder; lp1 - PSHx: 06:24 None; lp1 - Immunization history:: Adult Immunizations up to date. - Social history:: Smoking status: Patient denies any tobacco usage or history of. ROS: 06:18 Constitutional: Negative for fever, chills, and weight loss, Cardiovascular: Negative pm1 for chest pain, palpitations, and edema, Respiratory: Negative for shortness of breath, cough, wheezing, and pleuritic chest pain. 06:18 Back: Negative for injury and pain, MS/Extremity: Negative for injury and deformity, Skin: Negative for injury, rash, and discoloration. 06:18 Eyes: Negative for injury, pain, redness, and discharge, ENT: Negative for injury, pain, and discharge. 06:18 Abdomen/GI: Positive for nausea, Negative for abdominal pain, vomiting, diarrhea, constipation. 06:18 Neuro: Positive for dizziness, headache, Negative for altered mental status, numbness, tingling, visual changes, weakness. 06:18 All other systems are negative. Exam: 06:18 Constitutional: This is a well developed, well nourished patient who is awake, alert, pm1 and in no acute distress. Head/Face: Normocephalic, atraumatic. 06:18 Neck: Trachea midline, no thyromegaly or masses palpated, and no cervical lymphadenopathy. Supple, full range of motion without nuchal rigidity, or vertebral point tenderness. No Meningismus. Chest/axilla: Normal chest wall appearance and motion. Nontender with no deformity. No lesions are appreciated. 06:18 Back: No spinal tenderness. No costovertebral tenderness. Full range of motion. Skin: Warm, dry with normal turgor. Normal color with no rashes, no lesions, and no evidence of cellulitis. MS/ Extremity: Pulses equal, no cyanosis. Neurovascular intact. Full, normal range of motion. 06:18 Eyes: Exam is negative for acute changes, Periorbital structures: appear normal, no acute changes, Pupils: no acute changes, Extraocular movements: intact throughout, Conjunctiva: no acute changes, no injection, Sclera: no acute changes, icterus, is not appreciated, Visual herrera: are intact, no acute changes, Nystagmus: is not appreciated. 06:18 Cardiovascular: Exam negative for acute changes, Rate: bradycardic, Rhythm: regular, Pulses: no pulse deficits are appreciated, Heart sounds: normal, normal S1and S2, Edema: is not appreciated. 06:18 Respiratory: Exam negative for acute changes, respiratory distress, shortness of breath, Breath sounds: are clear throughout. 06:18 Abdomen/GI: Exam negative for acute changes, Inspection: abdomen appears normal, Palpation: abdomen is soft and non-tender, in all quadrants. 06:18 Neuro: Exam negative for acute changes, Orientation: is normal, Mentation: is normal, Cranial nerves: CN II- XII are normal as tested, visual herrera are intact. extraocular movements are intact, Speech is clear and appropriate. Tongue strength is normal, Sensation: is normal, no obvious gross deficits. Vital Signs: 06:00 BP 170 / 89; Pulse 47; Resp 18; Temp 96.2(A); Pulse Ox 96% on R/A; Weight 106.59 kg lp1 (R); Height 5 ft. 9 in. (175.26 cm); 06:33 BP 159 / 85 Sitting; Pulse 58; Resp 14 S; Pulse Ox 98% on R/A; bb 07:30 BP 140 / 86; Pulse 53; Resp 18 S; Pulse Ox 97% on R/A; bb 08:41 BP 137 / 85; Pulse 65; Resp 18 S; Pulse Ox 98% on R/A; as6 09:45 BP 150 / 83; Pulse 63; Resp 16 S; Pulse Ox 96% on R/A; as6 10:52 BP 144 / 83; Pulse 64; Resp 18 S; Pulse Ox 95% on R/A; as6 06:00 Body Mass Index 34.70 (106.59 kg, 175.26 cm) lp1 NIH Stroke Scale Scores: 07:49 NIHSS Score: 0 pm1 MDM: 06:16 Patient medically screened. pm1 07:50 Physician consultation: Navi Ramos MD Patient is not a TPA candidate because pm1 patient woke up with symptoms - unknown time of onset. Recommends CT angio head and neck for further evaluation to determine if patient would benefit from intraarterial intervention. 08:27 Data reviewed: vital signs. Data interpreted: Pulse oximetry: on room air is 97 %. pm1 Interpretation: normal. 08:47 Physician consultation: Navi Ramos MD regarding consult, CTA results, after a pm1 discussion of the case, a recommendation for transfer for higher level of care is made. 09:00 Counseling: I had a detailed discussion with the patient and/or guardian regarding: the pm1 historical points, exam findings, and any diagnostic results supporting the discharge/admit diagnosis, lab results, radiology results, the need to transfer to another facility, for higher level of care. 09:45 Physician consultation: MD Medina regarding consult, patient's condition, and will pm1 see patient. 10:19 Physician consultation: Hospitalist Malaika regarding regarding transfer, patient's pm1 condition, and will see patient. 10/27 06:00 Order name: Basic Metabolic Panel; Complete Time: 06:53 10/27 06:00 Order name: CBC with Diff; Complete Time: 06:42 10/27 06:00 Order name: LFT's; Complete Time: 06:53 10/27 06:00 Order name: Magnesium; Complete Time: 06:53 10/27 06:00 Order name: NT PRO-BNP; Complete Time: 06:53 10/27 06:00 Order name: PT-INR; Complete Time: 06:42 10/27 06:00 Order name: Troponin (emerg Dept Use Only); Complete Time: 06:53 10/27 06:00 Order name: XRAY Chest (1 view); Complete Time: 11:04 10/27 06:17 Order name: CT Head Brain wo Cont; Complete Time: 07:42 pm1 10/27 07:37 Order name: COVID-19/FLU A+B; Complete Time: 08:22 EDMS 10/27 07:42 Order name: CT Head Angio; Complete Time: 08:46 pm1 10/27 06:00 Order name: EKG; Complete Time: 06:00 10/27 06:00 Order name: Cardiac monitoring; Complete Time: 06:30 10/27 06:00 Order name: EKG - Nurse/Tech; Complete Time: 06:30 10/27 06:00 Order name: IV Saline Lock; Complete Time: 06:30 10/27 06:00 Order name: Labs collected and sent; Complete Time: 06:30 10/27 06:00 Order name: O2 Per Protocol; Complete Time: 06:30 10/27 06:00 Order name: O2 Sat Monitoring; Complete Time: 06:30 10/27 07:57 Order name: CT Neck Angio; Complete Time: 08:46 pm1 Administered Medications: 07:21 Drug: NS 0.9% 500 ml Route: IV; Rate: bolus; Site: right antecubital; 08:30 Follow up: Response: No adverse reaction; IV Status: Completed infusion; IV Intake: as6 500ml 09:04 Drug: Aspirin 81 mg Route: PO; as6 10:14 Follow up: Response: No adverse reaction as6 10:42 Drug: PlaVIX (clopidogrel) 75 mg Route: PO; as6 11:08 Follow up: Response: No adverse reaction as6 10:42 Drug: Atorvastatin 80 mg Route: PO; as6 11:08 Follow up: Response: No adverse reaction as6 Disposition Summary: 10/27/21 09:02 Transfer Ordered Transfer Location: [facility] pm1 Reason: Higher level of care pm1 Condition: Stable pm1 Problem: new pm1 Symptoms: have improved pm1 Accepting Physician: (10/27/21 11:39) as6 Diagnosis - Cerebral infarction due to thrombosis of left vertebral artery pm1 Forms: - Medication Reconciliation Form pm1 - SBAR form pm1 NIH Stroke Scale - NIH Stroke Score Date: 10/27/2021 Time: 07:49 Total Score = 0 1a. Level of Consciousness (LOC) - 0(Alert) 1b. Level of Consciousness (LOC) (Month \T\ Age) - 0(Both) 1c. LOC Commands (Open \T\ Closes Eyes/Fiction Writer) - 0(Both) 2. Best Gaze (Lateral Gaze Paresis) - 0(Normal) 3. Visual Field Loss - 0(No visual loss) 4. Facial Palsy - 0(Normal) 5a. Left Arm: Motor (10-second hold) - 0(No drift) 5b. Right Arm: Motor (10-second hold) - 0(No drift) 6a. Left Leg: Motor (5-second hold - always test supine) - 0(No drift) 6b. Right Leg: Motor (5-second hold - always test supine) - 0(No drift) 7. Limb Ataxia (finger/nose \T\ heel/carney - test with eyes open) - 0(Absent) 8. Sensory Loss (pinprick arms/legs/face) - 0(Normal) 9. Best Language: Aphasia (description/naming/reading) - 0(No aphasia) 10. Dysarthria (speech clarity - read or repeat words) - 0(Normal) 11. Extinction and Inattention (visual/tactile/auditory/spatial/personal) - 0(No abnormality) Initials: pm1 Signatures: Dispatcher [employer] EDVivian Canseco RN RN bb Yeni Brunson RN RN lp1 Javad Perez, SUPERVISOR [employer] SUPERVISOR [employer] pm1 Lenny Isaac RN RN as6 Corrections: (The following items were deleted from the chart) 07:37 06:18 Influenza Screen (A \T\ B)+BA.LAB.BRZ ordered. EDMS EDMS 07:37 06:27 CORONAVIRUS+MR.LAB.BRZ ordered. EDMS EDMS 11:39 09:02 pm1 as6
--- NOTE | 2021-10-27 09:03 | ER ---
Nurse's Notes [facility] Name: Rashid Sim Age: 56 yrs Sex: Male : 1965 Arrival Date: 10/27/2021 Time: 05:59 Bed 16 Private MD: Diagnosis: Cerebral infarction due to thrombosis of left vertebral artery Presentation: 10/27 06:00 Chief complaint: Chief complaint: EMS states: Called for patient with sudden onset lp1 generalized weakness, dizziness, headache; Vomited en route with EMS. 06:00 Coronavirus screen: At this time, the client does not indicate any symptoms associated lp1 with coronavirus-19. Ebola Screen: No symptoms or risks identified at this time. Initial Sepsis Screen: Does the patient meet any 2 criteria? No. Patient's initial sepsis screen is negative. Does the patient have a suspected source of infection? No. Patient's initial sepsis screen is negative. Risk Assessment: Do you want to hurt yourself or someone else? Patient reports no desire to harm self or others. Onset of symptoms was October 27, 2021 at 05:00. 06:00 Method Of Arrival: [facility] lp1 06:00 Acuity: YUNI 2 lp1 06:15 Care prior to arrival: Medication(s) given: zofran 4 mg, IV initiated. 18 GA, in the lp1 right antecubital area, Glucose check: 173. Historical: - Allergies: 06:24 No Known Allergies; lp1 - Home Meds: 06:24 Plavix 75 mg Oral tab 1 tab once daily [Active]; atorvastatin 40 mg oral tab 1 tab once lp1 daily [Active]; folic acid 1 mg Oral tab 1 tab once daily [Active]; losartan 25 mg oral tab 0.5 tab once daily [Active]; - PMHx: 06:24 rectal fistula; CVA; Hypertensive disorder; lp1 - PSHx: 06:24 None; lp1 - Immunization history:: Adult Immunizations up to date. - Social history:: Smoking status: Patient denies any tobacco usage or history of. Screenin:00 Fall Risk Secondary diagnosis (15 points) impaired mobility, IV access (20 points). bb Ambulatory Aid- None/Bed Rest/Nurse Assist (0 pts). Gait- Impaired (20 pts.). Mental Status- Overestimates/Forgets Limitations (15 pts.). Total Cowan Fall Scale indicates High Risk Score (45 or more points). Side Rails Up X 2 Family Present and informed to notify staff if the need to leave the bedside As available patient and family educated on Fall Prevention Program and Strategies. 06:27 Abuse screen: Denies threats or abuse. Denies injuries from another. Nutritional lp1 screening: No deficits noted. Tuberculosis screening: No symptoms or risk factors identified. Assessment: 06:00 General: Appears uncomfortable, ill, Behavior is listless. Neuro: Level of bb Consciousness is lethargic, Oriented to person, place, situation. Cardiovascular: Heart tones S1 S2 present Capillary refill < 3 seconds Rhythm is sinus rhythm. Respiratory: Respiratory effort is even, unlabored, Respiratory pattern is regular, Breath sounds are clear bilaterally. GI: Abdomen is round Bowel sounds present X 4 quads. Abd is soft and non tender X 4 quads. Derm: Skin is diaphoretic, Skin is pale, Skin temperature is cool. Musculoskeletal: Circulation, motion, and sensation intact. 06:35 Reassessment: unable to complete orthostatics pt unable to stand up. bb 07:00 Reassessment: attempted orthostatics pt unable to tolerate standing up and sat on bb bedside commode pt had large amount of diarrhea and was cleaned an helped back to bed. Javad Perez RECEIVABLES SPECIALIST notified. 08:00 Reassessment: Pt to CT again VIA stretcher. Neuro: Level of Consciousness is awake, ss alert, obeys commands, Oriented to person, place, time, situation, Speech is normal, Reports dizziness. EENT: Oral mucosa is moist. Throat is clear. 10:52 Reassessment: Patient and/or family updated on plan of care and expected duration. Pain as6 level reassessed. Patient is alert, oriented x 3, equal unlabored respirations, skin warm/dry/pink. Vital Signs: 06:00 BP 170 / 89; Pulse 47; Resp 18; Temp 96.2(A); Pulse Ox 96% on R/A; Weight 106.59 kg lp1 (R); Height 5 ft. 9 in. (175.26 cm); 06:33 BP 159 / 85 Sitting; Pulse 58; Resp 14 S; Pulse Ox 98% on R/A; bb 07:30 BP 140 / 86; Pulse 53; Resp 18 S; Pulse Ox 97% on R/A; bb 08:41 BP 137 / 85; Pulse 65; Resp 18 S; Pulse Ox 98% on R/A; as6 09:45 BP 150 / 83; Pulse 63; Resp 16 S; Pulse Ox 96% on R/A; as6 10:52 BP 144 / 83; Pulse 64; Resp 18 S; Pulse Ox 95% on R/A; as6 06:00 Body Mass Index 34.70 (106.59 kg, 175.26 cm) lp1 NIH Stroke Scale Scores: 07:49 NIHSS Score: 0 pm1 ED Course: 05:59 Patient arrived in ED. bb 06:00 No provider procedures requiring assistance completed. Maintain EMS IV. Dressing bb intact. Good blood return noted. Site clean \T\ dry. Gauge \T\ site: 18 g R AC. dressing changed due to diaphoresis covered with huey wrap. 06:05 Rose Cisneros RN is Primary Nurse. kd3 06:09 Javad Perez NP is PHCP. pm1 06:09 Isaac Starr MD is Attending Physician. pm1 06:24 Triage completed. lp1 06:26 Arm band placed on. lp1 06:26 Patient maintains SpO2 saturation greater than 95% on room air. lp1 06:27 Patient has correct armband on for positive identification. Placed in gown. Cardiac lp1 monitor on. Pulse ox on. NIBP on. 06:28 XRAY Chest (1 view) In Process Unspecified. EDMS 07:06 CT Head Brain wo Cont In Process Unspecified. EDMS 08:05 CT Head Angio In Process Unspecified. EDMS 08:05 CT Neck Angio In Process Unspecified. EDMS 11:31 Patient transferred, IV remains in place. as6 Administered Medications: 07:21 Drug: NS 0.9% 500 ml Route: IV; Rate: bolus; Site: right antecubital; bb 08:30 Follow up: Response: No adverse reaction; IV Status: Completed infusion; IV Intake: as6 500ml 09:04 Drug: Aspirin 81 mg Route: PO; as6 10:14 Follow up: Response: No adverse reaction as6 10:42 Drug: PlaVIX (clopidogrel) 75 mg Route: PO; as6 11:08 Follow up: Response: No adverse reaction as6 10:42 Drug: Atorvastatin 80 mg Route: PO; as6 11:08 Follow up: Response: No adverse reaction as6 Intake: 08:30 IV: 500ml; Total: 500ml. as6 Outcome: 09:02 ER care complete, transfer ordered by . pm1 11:31 Transferred by ground EMS to [facility], Transfer form completed. as6 X-rays sent w/ patient. 11:31 Condition: stable 11:39 Patient left the ED. as6 NIH Stroke Scale - NIH Stroke Score Date: 10/27/2021 Time: 07:49 Total Score = 0 1a. Level of Consciousness (LOC) - 0(Alert) 1b. Level of Consciousness (LOC) (Month \T\ Age) - 0(Both) 1c. LOC Commands (Open \T\ Closes Eyes/Gun Perforator) - 0(Both) 2. Best Gaze (Lateral Gaze Paresis) - 0(Normal) 3. Visual Field Loss - 0(No visual loss) 4. Facial Palsy - 0(Normal) 5a. Left Arm: Motor (10-second hold) - 0(No drift) 5b. Right Arm: Motor (10-second hold) - 0(No drift) 6a. Left Leg: Motor (5-second hold - always test supine) - 0(No drift) 6b. Right Leg: Motor (5-second hold - always test supine) - 0(No drift) 7. Limb Ataxia (finger/nose \T\ heel/carney - test with eyes open) - 0(Absent) 8. Sensory Loss (pinprick arms/legs/face) - 0(Normal) 9. Best Language: Aphasia (description/naming/reading) - 0(No aphasia) 10. Dysarthria (speech clarity - read or repeat words) - 0(Normal) 11. Extinction and Inattention (visual/tactile/auditory/spatial/personal) - 0(No abnormality) Initials: pm1 Signatures: Dispatcher [employer] EDVivian Canseco RN RN bb Smirch, Shelby, RN RN ss Yeni Brunson RN RN lp1 Javad Perez, RECEIVABLES SPECIALIST RECEIVABLES SPECIALIST pm1 Lenny Isaac RN RN as6 Rose Cisneros RN RN kd3 Corrections: (The following items were deleted from the chart) 06:24 06:22 Chief complaint: lp1 lp1
--- NOTE | 2021-10-27 10:26 | RAD REPORT ---
EXAM DESCRIPTION: RAD - Chest Single View - 10/27/2021 6:28 am CLINICAL HISTORY: CHEST PAIN COMPARISON: March 2020 TECHNIQUE: AP portable chest image was obtained 10/27/2021 6:28 am . FINDINGS: Lung volumes are low. No peripheral mass or consolidation. No significant failure or volum e overload identifiable. A rounded nodular density is present in the right side mediastinum or suprah ilar region not clearly seen on comparison. This is possibly a vessel seen on end. A new hilar lymph node is possible. Heart and vasculature are normal. No measurable pleural effusion and no pneumothora x. No acute bony abnormality seen. No acute aortic findings suspected. IMPRESSION: No acute lung parenchymal process identified. No failure or volume overload finding seen . Right-sided mediastinal/suprahilar nodular density is new from prior imaging. This can be re-evaluate d with standard two view imaging or CT chest imaging.
[2021-10-27] MEDS ORDERED: ATORVASTATIN 20 MG TAB ONE ×2 (10:29→10:38)
[2021-10-27] MEDS ORDERED: CLOPIDOGREL 75 MG TABLET ONE ×2 (10:30→10:38)
[2021-10-27 11:43] VITALS: TEMP 96.2
[2021-10-27 11:50] VITALS: BP 144/83; O2SAT 95
== END 2021-10-27 11:39 | disposition short-term general hospital (02) ==
LOC: ER 05:56
DX: I63.012 Cerebral infarction due to thrombosis of left vertebral artery (principal); R29.700 NIHSS score 0; Z20.822 Contact with and (suspected) exposure to COVID-19
CPT/HCPCS: 93005; 85025; 80048; 36415; 83735; 85610; 80076; 84484; 83880; 0240U; 70450; 70496; 70498; 71045; 96360; 99285; Q9967; J7040

== ENCOUNTER 2022-07-18 18:23 | Emergency (ER) | payer OTHER ==
--- OUTSIDE RECORDS SUMMARY | 2022-07-18 18:29 | XMS REPORT | Continuity of Care Document ---
:1965 Author Organization [facility] t Address [address] [place] [address] Care Team Providers Name Role Phone Kenyon Bermudez Attending Clinician Unavailable AGAPITO PRECIADO Attending Clinician Unavailable CLAUDY LANIER Attending Clinician Unavailable OMID PARSON Attending Clinician Unavailable NADEGE DODD Attending Clinician Unavailable GEMMA PARIKH Attending Clinician Unavailable Physician, No Primary or Family Admitting Clinician UnavailARTHUR Livingston Admitting Clinician Unavailable Payers Payer Name Policy Type Policy Number Effective Date Expiration Date S sindhu [employer] HMO POS [id number] 2018 00:00:00 QPOS Problems This patient has no known problems. Allergies, Adverse Reactions, Alerts Allergy Allergy Status Severity Reaction(s) Onset Inactive Treating Comm ents Source Name Type Date Date Clinician No Known DA Active [facility] Allergie 4-04 Clear s 00:00: Holley 00 [facility] NO KNOWN Allergy Active [facility] Medications This patient has no known medications. Vital Signs Vital Name Observation Time Observation Value Comments Source HEIGHT 2021-12-19 09:26:00 165.1 cm WEIGHT 2021-12-19 09:26:00 102.059 kg HEIGHT 2021-12-19 09:26:00 165.1 cm WEIGHT 2021-12-19 09:26:00 102.059 kg HEIGHT 2021-10-27 22:44:00 165.1 cm WEIGHT 2021-10-27 22:44:00 102.2 kg HEIGHT 2021-10-27 13:06:00 175.3 cm HEIGHT 2021-10-27 22:44:00 165.1 cm WEIGHT 2021-10-27 22:44:00 102.2 kg HEIGHT 2021-10-27 13:06:00 175.3 cm Procedures This patient has no known procedures. Encounters Start End Encounter Admission Attending Care Care Encounter Source Date/Time Date/Time Type Type Clinicians Facility Department ID 2022-03-02 Inpatient KATARINA Evans DAYS [id number] [facility] 11:30:00 Kenyon [id number] [facility] 2022-03-04 2022-03-04 Outpatient KATARINA Evans DAYS [id number] [facility] 06:10:00 06:10:00 Kenyon [id number] [facility] 2022-03-04 2022-03-04 Outpatient KATARINA Evans [facility] [id number] [facility] 06:10:00 06:10:00 Kenyon 22 [facility] 2022-02-27 2022-02-27 Outpatient [facility] [id number] [facility] 00:00:00 00:00:00 [facility] 2022-01-30 2022-01-30 Outpatient JULI LANIER [facility] [id number] [facility]22-01-29 Outpatient UJLI PRECIADO [facility] [id number] [facility] 00:00:00 00:00:00 [facility] 2022-01-29 2022-01-29 Outpatient JULI OTTOPaula [facility] [id number] [facility] 00:00:00 00:00:00 2022-01-29 2022-01-29 Outpatient JULI BLANK [facility] [id number] [facility] 00:00:00 00:00:00 OMID 2021-12-19 2021-12-19 Outpatient JULI RODDY PRECIADO SLE [id number] [facility] 09:11:51 09:11:51 [facility] 2021-11-13 2021-11-13 Outpatient EL [facility] [id number] 15:58:10 15:58:10 2021-10-27 2021-11-13 Inpatient ER [facility]D [id number] [facility] 12:47:00 15:00:00 2021-10-27 2021-10-27 [facility] [id number] [facility] 00:00:00 23:59:00 [facility] Results Test Description Test Time Test Comments Results Result Comments Source ACT-ISTAT 2022-03-04 10:42:00 Test Item Value Reference Range Interpretation Comme nts ACT-ISTAT (test code = ACTI) 285 SEC 74-137 H Performed by certified diesel pile driver operator at [facility] Novel Coronavirus 2018 [id number] 01:14:00 Test Item Value Reference Range Interpretation Comments Novel Coronavirus Negative Negative Positive r esults are 2019 Inhouse (test indicativ e of the presence code = COVNONPUI) ofSARS-CoV -2 RNA, clinical correlation wit h patient historyand othe r diagnostic info rmation is necessary to determinepatien t infection status. Positiv e results do not rule out bacterial infection or co -infection with other viru ses. Negative result s do not preclude SARS-C oV-2 infection andsh ould not be used as the lesli e basis for patient managementdecis ions. Negative result s must be combined with otherclinical observations, p atient history, and epidemiological information . Detection of SARS-CoV-2 RNA may be affe cted bysample collec tion methods, storag e conditions, and /or stageof infection. Chelsea l RNA mutations, vacc inations, antiviraltherap eutics, antibiotics, chemotherapeuti c orimmunosuppres ryan drugs have not been e valuated for effectson d etection. Results are for the identification of SARS-CoV-2 RNA usingreal-time (RT) polymerase dagoberto n reaction (PCR) technolog yfor the qualitative det ection of nucleic acids f rom [id number] v irus and diagnosis of SA RS-CoV-2 virusinfection. It is an Emergency Use Authorization ( EUA) testauthorized by the U.S. FDA. BASIC METABOLIC [id number] 13:46:00 Test Item Value Reference Range Interpretation Comments SODIUM (test code = NA) 142 mEq/L 134-147 N POTASSIUM (test code = 3.5 mEq/L 3.4-5.0 N K) CHLORIDE (test code = 108 mEq/L 100-108 N CL) CARBON DIOXIDE (test 28 mEq/l 21-33 N code = CO2) ANION GAP (test code = 10 0-20 N GAP) GLUCOSE (test code = 109 mg/dL 70-110 N GLU) BLOOD UREA NITROGEN 10 mg/dL 7-18 N (test code = BUN) GLOMERULAR FILTRATION 76.7 90-95 L Units of measure = RATE (test code = GFR) ml/mi n/1.73 m2 CREATININE (test code = 1.0 mg/dL 0.6-1.3 N CREAT) CALCIUM (test code = 9.0 mg/dL 8.0-10.5 N CA) PROTHROMBIN [id number] 13:41:00 Test Item Value Reference Range Interpretation Comments PROTHROMBIN TIME 17.7 SECONDS 9.3-12.9 H PATIENT (test code = PTP) INTERNATIONAL NORMAL 1.6 0.8-1.2 H TARGET INR BY RATIO (test code = INDICATIO N Indication INR) INR1. Prophylax is of venous thrombos is 2.0 - 3.0 (orthoped ic surgery), Proph ylaxis of venous throm bosis (other than hig h-risk surgery), Treat ment of Deep Vein Thrombosis/Pulm onary Embolism, Preve ntion of systemic emb olism - Tissue heart va lves, Acute Myocardia l Infarction (to prevent systemic emboli sm), Valvular heart disease, Atrial Fibrillation, Bileaflet mecha nical valve in aortic position.2. Mec hanical prosthetic valv es (high risk), 2. 5 - 3.5 Presence of Lup us Anticoagulant o r Antiphospholipi d Antibodies, Pre vention of systemic emb olism - Acute Myocardia l Infarction (to prevent recurrent infar ct). CBC W/AUTO [id number] 13:33:00 Test Item Value Reference Range Interpretation Comments WHITE BLOOD CELL (test code = 6.9 x10 3/uL 4.5-11.0 N WBC) RED BLOOD CELL (test code = 4.58 x10 6/uL 4.00-5.60 N RBC) HEMOGLOBIN (test code = HGB) 13.4 g/dL 12.5-16.9 N HEMATOCRIT (test code = HCT) 41.8 % 37.5-50.7 N MEAN CELL VOLUME (test code = 91.3 fL 81.0-99.0 N MCV) MEAN CELL HGB (test code = MCH) 29.3 pg 27.0-33.0 N MEAN CELL HGB CONCETRATION 32.1 g/dL 33.0-37.0 L (test code = MCHC) RED CELL DISTRIBUTION WIDTH CV 13.2 % 11.5-14.5 N (test code = RDW) RED CELL DISTRIBUTION WIDTH SD 44.9 fL 37.0-54.0 N (test code = RDW-SD) PLATELET COUNT (test code = 286 x10 3/uL 150-400 N PLT) MEAN PLATELET VOLUME (test code 11.3 fL 7.0-9.0 H = MPV) NEUTROPHIL % (test code = NT%) 55.4 % 56.0-77.0 L IMMATURE GRANULOCYTE % (test 0.6 % 0.0-2.0 N code = IG%) LYMPHOCYTE % (test code = LY%) 33.3 % 14.0-32.0 H MONOCYTE % (test code = MO%) 7.5 % 4.8-9.0 N EOSINOPHIL % (test code = EO%) 2.6 % 0.3-3.7 N BASOPHIL % (test code = BA%) 0.6 % 0.0-2.0 N NUCLEATED RBC % (test code = 0.0 % 0-0 N NRBC%) NEUTROPHIL # (test code = NT#) 3.82 x10 3/uL 2.0-7.6 N IMMATURE GRANULOCYTE # (test 0.04 x10 3/uL 0.00-0.03 H code = IG#) LYMPHOCYTE # (test code = LY#) 2.30 x10 3/uL 1.0-3.8 N MONOCYTE # (test code = MO#) 0.52 x10 3/uL 0.1-0.8 N EOSINOPHIL # (test code = EO#) 0.18 x10 3/uL 0.0-0.2 N BASOPHIL # (test code = BA#) 0.04 x10 3/uL 0.0-0.2 N NUCLEATED RBC # (test code = 0.00 x10 3/uL 0.0-0.1 N NRBC#) MANUAL DIFF REQUIRED (test code NO = MDIFF) - XR CHEST 2 [id number] 00:00:00 [facility] 1965 Sex: M FAX: Kenyon Engel MD [phone] [place]: St: PRE Name: BIJAN MONTES [facility] : 1965 Age/S: 56/M [address] Unit #: [id number] Loc: [place] [address] Phys: Kenyon Bermudez MD Acct: [id number] Dis Date: Status: PRE [facility] PHONE #: [phone] Exam Date: 03/02/2022 9497 FAX #: [phone] Reason: PREOP EXAMS: CPT CODE: [id number] XR CHEST 2 V 04366 PROCEDURE INFORMATION: Exam: XR Chest Exam date and time: 03/02/2022 1:43 PM Age: 56 years old Clinical indication: Pre-operative exam; Respiratory screening exam; Additional info: Preop TECHNIQUE: Imaging protocol: XR of the chest. Views: 2 views. PA and Lateral COMPARISON: No relevant prior studies available. FINDINGS: Lungs: The lungs are clear.Pleural spaces: Unremarkable. No pleural effusion. No pneumothorax. Heart/Mediastinum: The heart size is normal. The pulmonary vasculature is normal. The mediastinal contour is normal. The trachea is mi dline. Bones/joints: No acute abnormality seen. IMPRESSION: No acute cardiopulmonary findings at 1531 Reported and signed by: Daniel Ricci M.D. CC: Kenyon Bermudez MD Technologist: RT Tracee(Constantin) Trnscrd Date/Time/By: 03/02/2022 (153) : By: [email or web address] Orig Print D/T: S: 03/02/2022 (1530) PAGE 1 Signed ReportBASIC METABOLIC [id number] 11:24:14 Test Item Value Reference Range Interpretation Comments SODIUM (BEAKER) 140 meq/L 136-145 (test code = 381) POTASSIUM (BEAKER) 4.3 meq/L 3.5-5.1 (test code = 379) CHLORIDE (BEAKER) 108 meq/L 98-107 H (test code = 382) CO2 (BEAKER) (test 26 meq/L 22-29 code = 355) BLOOD UREA NITROGEN 8 mg/dL 7-21 (BEAKER) (test code = 354) CREATININE (BEAKER) 0.93 mg/dL 0.57-1.25 (test code = 358) GLUCOSE RANDOM 116 mg/dL 70-105 H (BEAKER) (test code = 652) CALCIUM (BEAKER) 9.8 mg/dL 8.4-10.2 (test code = 697) EGFR (BEAKER) (test 83 mL/min/1.73 [place] GFR IS code = 1092) sq m NOT ACCURATE CREATININE CLEARANCE IN PREDICTING GLOMERULAR FILTRATION RATE . ESTIMATED GFR I S NOT APPLICABLE FOR DIALYSIS PATIEN TS. Milk Delivery Driver ID - DBPROTHROMBIN TIME/[id number] 11:17:08 Test Item Value Reference Range Interpretation Comments PROTIME (BEAKER) 20.8 seconds 11.9-14.2 H (test code = 759) INR (BEAKER) (test 1.82 See_Comment [Automat ed message] code = 370) The system [employer] generated this result transmitted ref erence range: <=5.90. The reference range was not used to int erpret this result as normal/abnormal . RECOMMENDED COUMADIN/WARFARIN INR THERAPY RANGESSTANDARD DOSE: 2.0 - 3.0 Includes: PROPHYLAXIS for venous thrombosis, systemic embolization; TREATMENT for venous thrombosis and/or pulmonary embolus.HIGH RISK: Target INR is 2.5-3.5 for patients with mechanical heart valves.CBC W/PLT COUNT & AUTO [id number] 11:08:07 Test Item Value Reference Range Interpretation Comments WHITE BLOOD CELL COUNT (BEAKER) 6.3 K/ L 3.5-10.5 (test code = 775) RED BLOOD CELL COUNT (BEAKER) 4.43 M/ L 4.63-6.08 L (test code = 761) HEMOGLOBIN (BEAKER) (test code = 13.4 GM/DL 13.7-17.5 L 410) HEMATOCRIT (BEAKER) (test code = 41.7 % 40.1-51.0 411) MEAN CORPUSCULAR VOLUME (BEAKER) 94.1 fL 79.0-92.2 H (test code = 753) MEAN CORPUSCULAR HEMOGLOBIN 30.2 pg 25.7-32.2 (BEAKER) (test code = 751) MEAN CORPUSCULAR HEMOGLOBIN CONC 32.1 GM/DL 32.3-36.5 L (BEAKER) (test code = 752) RED CELL DISTRIBUTION WIDTH 12.8 % 11.6-14.4 (BEAKER) (test code = 412) PLATELET COUNT (BEAKER) (test 306 K/CU MM 150-450 code = 756) MEAN PLATELET VOLUME (BEAKER) 10.3 fL 9.4-12.4 (test code = 754) NUCLEATED RED BLOOD CELLS 0 /100 WBC 0-0 (BEAKER) (test code = 413) NEUTROPHILS RELATIVE PERCENT 58 % (BEAKER) (test code = 429) LYMPHOCYTES RELATIVE PERCENT 31 % (BEAKER) (test code = 430) MONOCYTES RELATIVE PERCENT 8 % (BEAKER) (test code = 431) EOSINOPHILS RELATIVE PERCENT 3 % (BEAKER) (test code = 432) BASOPHILS RELATIVE PERCENT 1 % (BEAKER) (test code = 437) NEUTROPHILS ABSOLUTE COUNT 3.61 K/ L 1.78-5.38 (BEAKER) (test code = 670) LYMPHOCYTES ABSOLUTE COUNT 1.93 K/ L 1.32-3.57 (BEAKER) (test code = 414) MONOCYTES ABSOLUTE COUNT (BEAKER) 0.49 K/ L 0.30-0.82 (test code = 415) EOSINOPHILS ABSOLUTE COUNT 0.16 K/ L 0.04-0.54 (BEAKER) (test code = 416) BASOPHILS ABSOLUTE COUNT (BEAKER) 0.04 K/ L 0.01-0.08 (test code = 417) IMMATURE GRANULOCYTES-RELATIVE 0 % 0-1 PERCENT (BEAKER) (test code = 2801) PROTEIN C [id number] 11:21:56 Test Item Value Reference Range Interpretation Comments PROTEIN C ACTIVITY (BEAKER) (test 116.0 % 70.0-130.0 code = 582) BASIC METABOLIC [id number] 05:25:08 Test Item Value Reference Range Interpretation Comments SODIUM (BEAKER) 138 meq/L 136-145 (test code = 381) POTASSIUM (BEAKER) 4.4 meq/L 3.5-5.1 (test code = 379) CHLORIDE (BEAKER) 106 meq/L 98-107 (test code = 382) CO2 (BEAKER) (test 23 meq/L 22-29 code = 355) BLOOD UREA NITROGEN 15 mg/dL 7-21 (BEAKER) (test code = 354) CREATININE (BEAKER) 0.94 mg/dL 0.57-1.25 (test code = 358) GLUCOSE RANDOM 139 mg/dL 70-105 H (BEAKER) (test code = 652) CALCIUM (BEAKER) 9.2 mg/dL 8.4-10.2 (test code = 697) EGFR (BEAKER) (test 82 mL/min/1.73 [place] GFR IS code = 1092) sq m NOT ACCURATE CREATININE CLEARANCE IN PREDICTING GLOMERULAR FILTRATION RATE . ESTIMATED GFR I S NOT APPLICABLE FOR DIALYSIS PATIEN TS. Milk Delivery Driver ID - ROSE [id number] 05:25:08 Test Item Value Reference Range Interpretation Comments MAGNESIUM (BEAKER) (test code = 2.0 mg/dL 1.6-2.6 627) Milk Delivery Driver ID - ROSE [id number] 05:25:08 Test Item Value Reference Range Interpretation Comments PHOSPHORUS (BEAKER) (test code = 3.4 mg/dL 2.3-4.7 604) Milk Delivery Driver ID - ROSE LCSF CULTURE + GRAM [id number] 13:11:07 Test Item Value Reference Range Interpretation Comments CULTURE (BEAKER) (test code No growth = 1095) GRAM STAIN RESULT (BEAKER) <1+ WBCs (test code = 1123) GRAM STAIN RESULT (BEAKER) No organisms seen (test code = 38948) CARDIOLIPIN ANTIBODIES, IGG AND [id number] 06:28:15 Test Item Value Reference Range Interpretation Comments ANTICARDIOLIPIN IGG ANTIBODY (BEAKER) < GPL <20.0 (test code = 712) ANTICARDIOLIPIN IGM ANTIBODY (BEAKER) < MPL <20.0 (test code = 713) Anticardiolipin IgG Result Interpretation: <20.0 GPL Normal>/= 20.0 GPL PositiveAnticardiolipin IgM Result Interpretation: <20.0 MPL Normal>/= 20.0 MPL PositiveBASIC METABOLIC [id number] 05:56:01 Test Item Value Reference Range Interpretation Comments SODIUM (BEAKER) 137 meq/L 136-145 (test code = 381) POTASSIUM (BEAKER) 4.2 meq/L 3.5-5.1 (test code = 379) CHLORIDE (BEAKER) 104 meq/L 98-107 (test code = 382) CO2 (BEAKER) (test 25 meq/L 22-29 code = 355) BLOOD UREA NITROGEN 13 mg/dL 7-21 (BEAKER) (test code = 354) CREATININE (BEAKER) 0.98 mg/dL 0.57-1.25 (test code = 358) GLUCOSE RANDOM 125 mg/dL 70-105 H (BEAKER) (test code = 652) CALCIUM (BEAKER) 9.3 mg/dL 8.4-10.2 (test code = 697) EGFR (BEAKER) (test 79 mL/min/1.73 [place] GFR IS code = 1092) sq m NOT ACCURATE CREATININE CLEARANCE IN PREDICTING GLOMERULAR FILTRATION RATE . ESTIMATED GFR I S NOT APPLICABLE FOR DIALYSIS PATIEN TS. Milk Delivery Driver ID - CHARU [id number] 05:56:01 Test Item Value Reference Range Interpretation Comments MAGNESIUM (BEAKER) (test code = 2.1 mg/dL 1.6-2.6 627) Milk Delivery Driver ID - CHARU [id number] 05:56:01 Test Item Value Reference Range Interpretation Comments PHOSPHORUS (BEAKER) (test code = 4.2 mg/dL 2.3-4.7 604) Milk Delivery Driver ID - CHARU MCBC W/PLT COUNT & AUTO [id number] 04:37:18 Test Item Value Reference Range Interpretation Comments WHITE BLOOD CELL COUNT (BEAKER) 8.5 K/ L 3.5-10.5 (test code = 775) RED BLOOD CELL COUNT (BEAKER) 4.04 M/ L 4.63-6.08 L (test code = 761) HEMOGLOBIN (BEAKER) (test code = 12.4 GM/DL 13.7-17.5 L 410) HEMATOCRIT (BEAKER) (test code = 37.6 % 40.1-51.0 L 411) MEAN CORPUSCULAR VOLUME (BEAKER) 93.1 fL 79.0-92.2 H (test code = 753) MEAN CORPUSCULAR HEMOGLOBIN 30.7 pg 25.7-32.2 (BEAKER) (test code = 751) MEAN CORPUSCULAR HEMOGLOBIN CONC 33.0 GM/DL 32.3-36.5 (BEAKER) (test code = 752) RED CELL DISTRIBUTION WIDTH 13.2 % 11.6-14.4 (BEAKER) (test code = 412) PLATELET COUNT (BEAKER) (test 435 K/CU MM 150-450 code = 756) MEAN PLATELET VOLUME (BEAKER) 10.2 fL 9.4-12.4 (test code = 754) NUCLEATED RED BLOOD CELLS 0 /100 WBC 0-0 (BEAKER) (test code = 413) NEUTROPHILS RELATIVE PERCENT 56 % (BEAKER) (test code = 429) LYMPHOCYTES RELATIVE PERCENT 33 % (BEAKER) (test code = 430) MONOCYTES RELATIVE PERCENT 8 % (BEAKER) (test code = 431) EOSINOPHILS RELATIVE PERCENT 2 % (BEAKER) (test code = 432) BASOPHILS RELATIVE PERCENT 1 % (BEAKER) (test code = 437) NEUTROPHILS ABSOLUTE COUNT 4.79 K/ L 1.78-5.38 (BEAKER) (test code = 670) LYMPHOCYTES ABSOLUTE COUNT 2.78 K/ L 1.32-3.57 (BEAKER) (test code = 414) MONOCYTES ABSOLUTE COUNT (BEAKER) 0.64 K/ L 0.30-0.82 (test code = 415) EOSINOPHILS ABSOLUTE COUNT 0.20 K/ L 0.04-0.54 (BEAKER) (test code = 416) BASOPHILS ABSOLUTE COUNT (BEAKER) 0.05 K/ L 0.01-0.08 (test code = 417) IMMATURE GRANULOCYTES-RELATIVE 1 % 0-1 PERCENT (BEAKER) (test code = 2801) POCT-GLUCOSE [id number] 00:30:43 Test Item Value Reference Range Interpretation Comments POC-GLUCOSE METER 131 mg/dL 70-110 H : TESTED A T [facility] 6720 (BEAKER) (test code = [place], 1538) [address]: Milk Delivery Driver/Techni jose ID = [id number] for WALTER KAUR SARS-COV2/RT-PCR ([facility])2021-11-11 20:14:18 Test Item Value Reference Range Interpretation Comments SARS-COV2/RT-PCR (test code = Negative Negative 2021679) Negative result for this test determines that SARS-CoV-2 RNA was not present in the specimen above the Limit of Detection (LOD). However, Negative results do not preclude SARS-CoV-2 infection and should not be used as the sole basis for treatment or patient management decisions. Negative results must be combined with clinical observations, patient history, and epidemiological information. A false negative result may occur if a specimen is improperly collected, transported, or handled. A false negative result should be considered if patient's recent exposures or clinical presentation indicate that COVID-19 (SARS-CoV-2) is likely and diagnostic tests for other causes of illness are negative. Re-testing should be considered in cases of suspected false negatives.The limit of detection for this assay is 100 copies/mL.This SARS-CoV-2 test is a real-time RT_PCR test intended for the qualitative detection of nucleic acid from SARS-CoV-2 in a nasopharyngeal swab specimen collected from individuals suspected of COVID-19 by their healthcare provider.This test has not been Food and Drug Administration (FDA) cleared or approved. This is a modified version of an approved Emergency Use Authorization (EUA) and is in the process of review by the FDA. Once authorized by the FDA, the issued EUA will be effective until the declaration that circumstances exist justifying the authorization of the emergency use of in vitro diagnostic tests for detection and/or diagnosis of COVID-19 is terminated under Section 564(b)(2) of the Act or the EUA is revoked under Section 564(g) of the Act.Testing was performed using [employer] SARS-CoV-2 assay.Fact Sheet for Healthcare Providers:https://www.7digital/harrison/RT SARS-CoV-2 HCP Fact Sheet 51- 448129.pdfFact Sheet for Healthcare Patients:https://www.7digital/harrison/RT SARS-CoV-2 Patient Fact Sheet EN 51-010233X6.pdfPOCT-GLUCOSE [id number] 18:12:51 Test Item Value Reference Range Interpretation Comments POC-GLUCOSE METER 88 mg/dL 70-110 : TESTED A T [facility] 6720 (Lost My Name) (test code = [facility] Constantin [facility], 1538) [address]: Milk Delivery Driver/Techni jose ID = [id number] for Del (contract), Izabela roe ANTITHROMBIN [id number] 13:04:20 Test Item Value Reference Range Interpretation Comments ANTITHROMBIN III ACTIVITY (Lost My Name) 109.0 % 80.0-120.0 (test code = 711) POCT-GLUCOSE [id number] 12:36:55 Test Item Value Reference Range Interpretation Comments POC-GLUCOSE METER 136 mg/dL 70-110 H : TESTED A T [facility] 6720 (Lost My Name) (test code [facility], = 1538) [address]: Milk Delivery Driver/Techni jose ID = [id number] for Del (contract)Izabela PT/[id number] 10:51:20 Test Item Value Reference Range Interpretation Comments PROTIME (CantargiaAKER) (test 13.2 seconds 11.9-14.2 code = 759) INR (BEAKER) (test 1.02 See_Comment [Automat ed code = 370) message] The sy stem which generated this result transmitted reference range : <=5.90. The reference range was not used to interpret this result as normal/abnormal . PARTIAL THROMBOPLASTIN 28.4 seconds 22.5-36.0 TIME (BEAKER) (test code = 760) RECOMMENDED COUMADIN/WARFARIN INR THERAPY RANGESSTANDARD DOSE: 2.0 - 3.0 Includes: PROPHYLAXIS for venous thrombosis, systemic embolization; TREATMENT for venous thrombosis and/or pulmonary embolus.HIGH RISK: Target INR is 2.5-3.5 for patients with mechanical heart valves.PROTHROMBIN TIME/[id number] 10:50:39 Test Item Value Reference Range Interpretation Comments PROTIME (BEAKER) 13.2 seconds 11.9-14.2 (test code = 759) INR (BEAKER) (test 1.02 See_Comment [Automat ed message] code = 370) The system [employer] generated this result transmitted ref erence range: <=5.90. The reference range was not used to int erpret this result as normal/abnormal . RECOMMENDED COUMADIN/WARFARIN INR THERAPY RANGESSTANDARD DOSE: 2.0 - 3.0 Includes: PROPHYLAXIS for venous thrombosis, systemic embolization; TREATMENT for venous thrombosis and/or pulmonary embolus.HIGH RISK: Target INR is 2.5-3.5 for patients with mechanical heart valves.LUPUS ANTICOAGULANT SCREEN WITH REFLEX TO [id number] 08:40:26 Test Item Value Reference Range Interpretation Comments DRVV SCREEN RATIO 1.05 <1.20 (BEAKER) (test code = 2707) DRVV INTERPRETATION Normal (BEAKER) (test code = PT,PTT-La,DRVV 2550) results;Negativ e screen for Lupus Anticoagulant. PROTIME (BEAKER) 12.8 seconds 11.9-14.2 (test code = 759) INR (BEAKER) (test 0.98 See_Comment [Automat ed code = 370) message] The system which generated this result transmit parish reference range : <=5.90. The reference range was not used to interpret this result as normal/abnormal . PARTIAL 26.3 seconds 22.5-36.0 THROMBOPLASTIN TIME (BEAKER) (test code = 760) PTT-LA (BEAKER) (test 33.6 32.0-41.8 code = [id number]) [id number] Ghazaleh (BEAKER) (test code = Leti Paz 2610) [id number] 08:37:29 Test Item Value Reference Range Interpretation Comments HOMOCYSTEINE (BEAKER) (test code = 6.9 umol/L 5.1-15.4 642) Milk Delivery Driver ID Campos SARAVIA FVITAMIN B12 AND [id number] 06:08:34 Test Item Value Reference Range Interpretation Comments VITAMIN B12 550 pg/mL 213-816 (BEAKER) (test code = 774) FOLATE (BEAKER) 16.80 ng/mL See_Comment [Automated message] (test code = 362) The system which generated this result transmitted ref erence range: >=7.00. The reference range was not used to interpr et this result as normal/abnormal . Milk Delivery Driver ID - CHARU [id number] 05:51:42 Test Item Value Reference Range Interpretation Comments MAGNESIUM (BEAKER) (test code = 2.1 mg/dL 1.6-2.6 627) Milk Delivery Driver ID - CHARU [id number] 05:51:42 Test Item Value Reference Range Interpretation Comments PHOSPHORUS (BEAKER) (test code = 3.6 mg/dL 2.3-4.7 604) Milk Delivery Driver ID - CHARU MBASIC METABOLIC [id number] 05:51:41 Test Item Value Reference Range Interpretation Comments SODIUM (BEAKER) 137 meq/L 136-145 (test code = 381) POTASSIUM (BEAKER) 4.1 meq/L 3.5-5.1 (test code = 379) CHLORIDE (BEAKER) 105 meq/L 98-107 (test code = 382) CO2 (BEAKER) (test 24 meq/L 22-29 code = 355) BLOOD UREA NITROGEN 12 mg/dL 7-21 (BEAKER) (test code = 354) CREATININE (BEAKER) 0.88 mg/dL 0.57-1.25 (test code = 358) GLUCOSE RANDOM 129 mg/dL 70-105 H (BEAKER) (test code = 652) CALCIUM (BEAKER) 9.2 mg/dL 8.4-10.2 (test code = 697) EGFR (BEAKER) (test 89 mL/min/1.73 ESTIMA PARISH GFR IS code = 1092) sq m NOT ACCURATE CREATININE CLEARANCE IN PREDICTING GLOMERULAR FILTRATION RATE . ESTIMATED GFR I S NOT APPLICABLE FOR DIALYSIS PATIEN TS. Milk Delivery Driver ID - CHARU JOSÉ, TIBC, % SAT. (WITHOUT FERRITIN)2021-11-11 05:32:06 Test Item Value Reference Range Interpretation Comments IRON (BEAKER) (test code = 547) 50.0 ug/dL 40.0-160.0 TOTAL IRON BINDING CAPACITY 245 ug/dL 250-450 L (BEAKER) (test code = 769) IRON % SATURATION (2) (BEAKER) 20 % 20-55 (test code = 2590) Milk Delivery Driver ID - CHARU [id number] 21:06:37 Test Item Value Reference Range Interpretation Comments SODIUM (BEAKER) (test code = 381) 136 meq/L 136-145 Milk Delivery Driver ID - [id number] 15:49:12 Test Item Value Reference Range Interpretation Comments SODIUM (BEAKER) (test code = 381) 135 meq/L 136-145 L Milk Delivery Driver ID - NAYANA [id number] 02:00:23 Test Item Value Reference Range Interpretation Comments PHOSPHORUS (BEAKER) (test code = 3.2 mg/dL 2.3-4.7 604) Milk Delivery Driver ID - [id number] 02:00:22 Test Item Value Reference Range Interpretation Comments MAGNESIUM (BEAKER) (test code = 2.0 mg/dL 1.6-2.6 627) Milk Delivery Driver ID - DBBASIC METABOLIC [id number] 02:00:21 Test Item Value Reference Range Interpretation Comments SODIUM (BEAKER) 135 meq/L 136-145 L (test code = 381) POTASSIUM (BEAKER) 4.0 meq/L 3.5-5.1 (test code = 379) CHLORIDE (BEAKER) 104 meq/L 98-107 (test code = 382) CO2 (BEAKER) (test 21 meq/L 22-29 L code = 355) BLOOD UREA NITROGEN 9 mg/dL 7-21 (BEAKER) (test code = 354) CREATININE (BEAKER) 0.83 mg/dL 0.57-1.25 (test code = 358) GLUCOSE RANDOM 131 mg/dL 70-105 H (BEAKER) (test code = 652) CALCIUM (BEAKER) 8.8 mg/dL 8.4-10.2 (test code = 697) EGFR (BEAKER) (test 95 mL/min/1.73 [place] GFR IS code = 1092) sq m NOT ACCURATE CREATININE CLEARANCE IN PREDICTING GLOMERULAR FILTRATION RATE . ESTIMATED GFR I S NOT APPLICABLE FOR DIALYSIS PATIEN TS. Milk Delivery Driver ID - DBCBC W/PLT COUNT & AUTO [id number] 01:39:16 Test Item Value Reference Range Interpretation Comments WHITE BLOOD CELL COUNT (BEAKER) 9.9 K/ L 3.5-10.5 (test code = 775) RED BLOOD CELL COUNT (BEAKER) 3.88 M/ L 4.63-6.08 L (test code = 761) HEMOGLOBIN (BEAKER) (test code = 12.2 GM/DL 13.7-17.5 L 410) HEMATOCRIT (BEAKER) (test code = 36.1 % 40.1-51.0 L 411) MEAN CORPUSCULAR VOLUME (BEAKER) 93.0 fL 79.0-92.2 H (test code = 753) MEAN CORPUSCULAR HEMOGLOBIN 31.4 pg 25.7-32.2 (BEAKER) (test code = 751) MEAN CORPUSCULAR HEMOGLOBIN CONC 33.8 GM/DL 32.3-36.5 (BEAKER) (test code = 752) RED CELL DISTRIBUTION WIDTH 13.0 % 11.6-14.4 (BEAKER) (test code = 412) PLATELET COUNT (BEAKER) (test 392 K/CU MM 150-450 code = 756) MEAN PLATELET VOLUME (BEAKER) 10.1 fL 9.4-12.4 (test code = 754) NUCLEATED RED BLOOD CELLS 0 /100 WBC 0-0 (BEAKER) (test code = 413) NEUTROPHILS RELATIVE PERCENT 64 % (BEAKER) (test code = 429) LYMPHOCYTES RELATIVE PERCENT 26 % (BEAKER) (test code = 430) MONOCYTES RELATIVE PERCENT 6 % (BEAKER) (test code = 431) EOSINOPHILS RELATIVE PERCENT 3 % (BEAKER) (test code = 432) BASOPHILS RELATIVE PERCENT 1 % (BEAKER) (test code = 437) NEUTROPHILS ABSOLUTE COUNT 6.31 K/ L 1.78-5.38 H (BEAKER) (test code = 670) LYMPHOCYTES ABSOLUTE COUNT 2.54 K/ L 1.32-3.57 (BEAKER) (test code = 414) MONOCYTES ABSOLUTE COUNT (BEAKER) 0.63 K/ L 0.30-0.82 (test code = 415) EOSINOPHILS ABSOLUTE COUNT 0.32 K/ L 0.04-0.54 (BEAKER) (test code = 416) BASOPHILS ABSOLUTE COUNT (BEAKER) 0.06 K/ L 0.01-0.08 (test code = 417) IMMATURE GRANULOCYTES-RELATIVE 1 % 0-1 PERCENT (BEAKER) (test code = 2801) PROTEIN, [id number] 17:46:28 Test Item Value Reference Range Interpretation Comments PROTEIN CSF (BEAKER) (test code = 22 mg/dL 15-45 378) Milk Delivery Driver ID - DBCSF CELL COUNT [id number]/[id number] 17:31:41 Test Item Value Reference Range Interpretation Comments APPEARANCE CSF Clear Clear (BEAKER) (test code = 407) COLOR CSF (BEAKER) Colorless Colorless (test code = 408) RBC CSF (BEAKER) 45 /cu mm 0-5 H (test code = 409) WBC CSF (BEAKER) 1 /cu mm See_Comment [Automated (test code = 1020) message] The system which generated this result transmit parish reference range : <=5. The refere nce range was not u sed to interpret th is result as normal/abnormal . RBCS FRESH (BEAKER) 75% Fresh, 25% (test code = 1444) Crenated NUMBER OF CELLS 40 DIFF'D (BEAKER) (test code = 1591) NEUTROPHIL, CSF 13 % 0-5 H (BEAKER) (test code = 324) LYMPHS CSF (BEAKER) 53 % 40-80 (test code = 438) MONO/MACROPHAGE CSF 35 % 15-45 (BEAKER) (test code = 439) EOSINOPHILS CSF 0 % See_Comment [Automated (BEAKER) (test code message] The = 360) system which generated this result transmit parish reference range : <=0. The refere nce range was not u sed to interpret th is result as normal/abnormal . BASO CSF (BEAKER) 0 % See_Comment [Automate d (test code = 440) message] T he system which generated this result transmit parish reference range : <=0. The refere nce range was not u sed to interpret th is result as normal/abnormal . TUBE NUMBER CSF #1 (BEAKER) (test code = 2678) GLUCOSE, [id number] 16:50:21 Test Item Value Reference Range Interpretation Comments GLUCOSE CSF (BEAKER) (test code = 95 mg/dL 40-70 H 406) Milk Delivery Driver ID - MAUREEN [id number] 16:38:39 Test Item Value Reference Range Interpretation Comments SODIUM (BEAKER) (test code = 381) 135 meq/L 136-145 L Milk Delivery Driver ID - MAUREEN WCT, BRAIN, WITHOUT [id number] 08:47:00Unlisted Reason for Exam - Click Yes and Enter Reason Below->No [facility] : 1965 Sex: MFINAL REPORT CT, BRAIN, WITHOUT CONTRAST INDICATION: Subarachnoid hemorrhage, follow-up TECHNIQUE: Noncontrast axial imaging was obtained from the vertex to the skull base. Axial images were reconstructed using a bone algorithm. DOSE REDUCTION: Dose modulation, iterative reconstruction, and/or weight-based adjustment of the mA/kV was utilized to reduce the radiation dose to as low as reasonably achievable. 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 Hemorrhage in the left cerebellar hemisphere is nearly resolved. No new site of hemorrhage. Expected evolution of small infarct in the right cerebellar hemisphere. Ventricular caliber is unchanged. No mass effect. Osseous structures: Suboccipital craniectomy. No fracture. No suspicious lesion. Paranasal sinuses and mastoid air cells: No evidence of sinusitis. Mastoids are clear. Orbital contents: Globes are intact. IMPRESSION: New complete resolution of hemorrhage in the left cerebellar surgical bed. Expected evolution of bilateral cerebellarhemisphere infarcts. Unchanged shunted ventricles. Signed: Meservy, Jus MDReport Verified Date/Time : 11/09/2021 08:47:38 [id number] 06:27:11 Test Item Value Reference Range Interpretation Comments PHOSPHORUS (BEAKER) (test code = 2.6 mg/dL 2.3-4.7 604) Milk Delivery Driver ID Campos FAUSTIN WBASIC METABOLIC [id number] 06:27:10 Test Item Value Reference Range Interpretation Comments SODIUM (BEAKER) 139 meq/L 136-145 (test code = 381) POTASSIUM (BEAKER) 4.1 meq/L 3.5-5.1 (test code = 379) CHLORIDE (BEAKER) 107 meq/L 98-107 (test code = 382) CO2 (BEAKER) (test 24 meq/L 22-29 code = 355) BLOOD UREA NITROGEN 8 mg/dL 7-21 (BEAKER) (test code = 354) CREATININE (BEAKER) 0.82 mg/dL 0.57-1.25 (test code = 358) GLUCOSE RANDOM 119 mg/dL 70-105 H (BEAKER) (test code = 652) CALCIUM (BEAKER) 8.7 mg/dL 8.4-10.2 (test code = 697) EGFR (BEAKER) (test 96 mL/min/1.73 [place] GFR IS code = 1092) sq m NOT ACCURATE CREATININE CLEARANCE IN PREDICTING GLOMERULAR FILTRATION RATE . ESTIMATED GFR I S NOT APPLICABLE FOR DIALYSIS PATIEN TS. Milk Delivery Driver ID Campos FAUSTIN [id number] 06:27:10 Test Item Value Reference Range Interpretation Comments MAGNESIUM (BEAKER) (test code = 1.9 mg/dL 1.6-2.6 627) Milk Delivery Driver ID Campos FAUSTIN WCBC W/PLT COUNT & AUTO [id number] 05:54:18 Test Item Value Reference Range Interpretation Comments WHITE BLOOD CELL COUNT (BEAKER) 10.1 K/ L 3.5-10.5 (test code = 775) RED BLOOD CELL COUNT (BEAKER) 3.95 M/ L 4.63-6.08 L (test code = 761) HEMOGLOBIN (BEAKER) (test code = 12.3 GM/DL 13.7-17.5 L 410) HEMATOCRIT (BEAKER) (test code = 38.0 % 40.1-51.0 L 411) MEAN CORPUSCULAR VOLUME (BEAKER) 96.2 fL 79.0-92.2 H (test code = 753) MEAN CORPUSCULAR HEMOGLOBIN 31.1 pg 25.7-32.2 (BEAKER) (test code = 751) MEAN CORPUSCULAR HEMOGLOBIN CONC 32.4 GM/DL 32.3-36.5 (BEAKER) (test code = 752) RED CELL DISTRIBUTION WIDTH 12.7 % 11.6-14.4 (BEAKER) (test code = 412) PLATELET COUNT (BEAKER) (test 381 K/CU MM 150-450 code = 756) MEAN PLATELET VOLUME (BEAKER) 10.6 fL 9.4-12.4 (test code = 754) NUCLEATED RED BLOOD CELLS 0 /100 WBC 0-0 (BEAKER) (test code = 413) NEUTROPHILS RELATIVE PERCENT 63 % (BEAKER) (test code = 429) LYMPHOCYTES RELATIVE PERCENT 26 % (BEAKER) (test code = 430) MONOCYTES RELATIVE PERCENT 7 % (BEAKER) (test code = 431) EOSINOPHILS RELATIVE PERCENT 3 % (BEAKER) (test code = 432) BASOPHILS RELATIVE PERCENT 1 % (BEAKER) (test code = 437) NEUTROPHILS ABSOLUTE COUNT 6.40 K/ L 1.78-5.38 H (BEAKER) (test code = 670) LYMPHOCYTES ABSOLUTE COUNT 2.64 K/ L 1.32-3.57 (BEAKER) (test code = 414) MONOCYTES ABSOLUTE COUNT (BEAKER) 0.67 K/ L 0.30-0.82 (test code = 415) EOSINOPHILS ABSOLUTE COUNT 0.28 K/ L 0.04-0.54 (BEAKER) (test code = 416) BASOPHILS ABSOLUTE COUNT (BEAKER) 0.05 K/ L 0.01-0.08 (test code = 417) IMMATURE GRANULOCYTES-RELATIVE 1 % 0-1 PERCENT (BEAKER) (test code = 2801) [id number] 00:20:34 Test Item Value Reference Range Interpretation Comments SODIUM (BEAKER) (test code = 381) 135 meq/L 136-145 L Milk Delivery Driver ID - [id number] 16:48:11 Test Item Value Reference Range Interpretation Comments SODIUM (BEAKER) (test code = 381) 137 meq/L 136-145 Milk Delivery Driver ID - CHARU MOSMOLALITY, [id number] 14:50:12 Test Item Value Reference Range Interpretation Comments OSMOLALITY URINE 555 mOsm/kg See_Comment [Automated message] (BEAKER) (test code = The sy stem which 614) generated this result transmitted ref erence range: 50-1,200 mOsm/kg. The reference range was not used to int erpret this result as normal/abnormal . SODIUM, RANDOM [id number] 14:14:28 Test Item Value Reference Range Interpretation Comments SODIUM URINE (BEAKER) (test code = 198 meq/L 243) Reference Range: No NormalsOperator ID - DBCT, BRAIN, WITHOUT [id number] 11:01:00Unlisted Reason for Exam - Click Yes and Enter Reason Below->Nopre clamp evaluationHE[facility]BR[facility] : 1965 Sex: MFINAL REPORT CT, BRAIN, WITHOUT CONTRAST INDICATION: Unlisted Reason for Exam TECHNIQUE: Noncontrast axial imaging was obtained from the vertex to the skull base. Axial images were reconstructed using a bone algorithm. DOSE REDUCTION: Dose modulation, iterative reconstruction, and/or weight-based adjustment of the mA/kV was utilized to reduce the radiation dose to as low as reasonably achievable. COMPARISON: CT 11/01/2021 and multiple prior exams dating back to 10/27/2021 FINDINGS: Intracranial: Status post suboccipital craniectomy for decompression of mass effect from left cerebellar hemisphere infarct. Similar blood products in the posterior surgical bed. Decreased extent of edema and mass effect on the fourth ventricle. Overall ventricular caliber has decreased with the third ventriclemeasuring 7 mm in maximum transverse diameter compared to 13 mm on the previous exam. Right frontal approach ventriculostomy catheter remains in place, with small amount of edema along its tract. New small infarct in the right cerebellar hemisphere. Osseous structures: Suboccipital craniectomy. No fracture. No suspicious lesion. Paranasal sinuses and mastoid air cells: No evidence of sinusitis. Mastoids are clear. Orbital contents: Globes are intact. IMPRESSION: 1.Interval decrease in mass effect related to left cerebellar hemisphere infarct, and marked decrease in ventricular caliber.2.New small right cerebellar hemisphere infarct. Signed: Jus Le MDReport Verified Date/Time: 11/08/2021 11:01:05 [id number] 07:41:44 Test Item Value Reference Range Interpretation Comments MAGNESIUM (BEAKER) (test code = 2.2 mg/dL 1.6-2.6 627) Milk Delivery Driver ID - [id number] 07:41:44 Test Item Value Reference Range Interpretation Comments PHOSPHORUS (BEAKER) (test code = 2.3 mg/dL 2.3-4.7 604) Milk Delivery Driver ID - DBBASIC METABOLIC [id number] 07:41:43 Test Item Value Reference Range Interpretation Comments SODIUM (BEAKER) 137 meq/L 136-145 (test code = 381) POTASSIUM (BEAKER) 4.0 meq/L 3.5-5.1 (test code = 379) CHLORIDE (BEAKER) 105 meq/L 98-107 (test code = 382) CO2 (BEAKER) (test 23 meq/L 22-29 code = 355) BLOOD UREA NITROGEN 11 mg/dL 7-21 (BEAKER) (test code = 354) CREATININE (BEAKER) 0.77 mg/dL 0.57-1.25 (test code = 358) GLUCOSE RANDOM 129 mg/dL 70-105 H (BEAKER) (test code = 652) CALCIUM (BEAKER) 8.1 mg/dL 8.4-10.2 L (test code = 697) EGFR (BEAKER) (test 104 mL/min/1.73 [place] GFR IS code = 1092) sq m NOT ACCURATE CREATININE CLEARANCE IN PREDICTING GLOMERULAR FILTRATION RATE . ESTIMATED GFR I S NOT APPLICABLE FOR DIALYSIS PATIEN TS. Milk Delivery Driver ID - DBCBC W/PLT COUNT & AUTO [id number] 03:57:59 Test Item Value Reference Range Interpretation Comments WHITE BLOOD CELL COUNT (BEAKER) 9.4 K/ L 3.5-10.5 (test code = 775) RED BLOOD CELL COUNT (BEAKER) 3.70 M/ L 4.63-6.08 L (test code = 761) HEMOGLOBIN (BEAKER) (test code = 11.6 GM/DL 13.7-17.5 L 410) HEMATOCRIT (BEAKER) (test code = 34.4 % 40.1-51.0 L 411) MEAN CORPUSCULAR VOLUME (BEAKER) 93.0 fL 79.0-92.2 H (test code = 753) MEAN CORPUSCULAR HEMOGLOBIN 31.4 pg 25.7-32.2 (BEAKER) (test code = 751) MEAN CORPUSCULAR HEMOGLOBIN CONC 33.7 GM/DL 32.3-36.5 (BEAKER) (test code = 752) RED CELL DISTRIBUTION WIDTH 12.6 % 11.6-14.4 (BEAKER) (test code = 412) PLATELET COUNT (BEAKER) (test 375 K/CU MM 150-450 code = 756) MEAN PLATELET VOLUME (BEAKER) 10.2 fL 9.4-12.4 (test code = 754) NUCLEATED RED BLOOD CELLS 0 /100 WBC 0-0 (BEAKER) (test code = 413) NEUTROPHILS RELATIVE PERCENT 61 % (BEAKER) (test code = 429) LYMPHOCYTES RELATIVE PERCENT 27 % (BEAKER) (test code = 430) MONOCYTES RELATIVE PERCENT 8 % (BEAKER) (test code = 431) EOSINOPHILS RELATIVE PERCENT 2 % (BEAKER) (test code = 432) BASOPHILS RELATIVE PERCENT 0 % (BEAKER) (test code = 437) NEUTROPHILS ABSOLUTE COUNT 5.77 K/ L 1.78-5.38 H (BEAKER) (test code = 670) LYMPHOCYTES ABSOLUTE COUNT 2.58 K/ L 1.32-3.57 (BEAKER) (test code = 414) MONOCYTES ABSOLUTE COUNT (BEAKER) 0.75 K/ L 0.30-0.82 (test code = 415) EOSINOPHILS ABSOLUTE COUNT 0.23 K/ L 0.04-0.54 (BEAKER) (test code = 416) BASOPHILS ABSOLUTE COUNT (BEAKER) 0.04 K/ L 0.01-0.08 (test code = 417) IMMATURE GRANULOCYTES-RELATIVE 1 % 0-1 PERCENT (BEAKER) (test code = 2801) [id number] 21:04:45 Test Item Value Reference Range Interpretation Comments MAGNESIUM (BEAKER) 2.1 mg/dL 1.6-2.6 Specimen slightly (test code = 627) hemolyzed Milk Delivery Driver ID - NAYANA [id number] 20:29:00 Test Item Value Reference Range Interpretation Comments SODIUM (BEAKER) (test code = 381) 138 meq/L 136-145 Milk Delivery Driver ID - [id number] 13:40:42 Test Item Value Reference Range Interpretation Comments SODIUM (BEAKER) (test code = 381) 136 meq/L 136-145 Milk Delivery Driver ID - [id number] 07:10:46 Test Item Value Reference Range Interpretation Comments SODIUM (BEAKER) (test code = 381) 138 meq/L 136-145 Milk Delivery Driver ID - NAYANA [id number] 02:19:46 Test Item Value Reference Range Interpretation Comments SODIUM (BEAKER) (test code = 381) 136 meq/L 136-145 [id number] 02:19:45 Test Item Value Reference Range Interpretation Comments MAGNESIUM (BEAKER) (test code = 2.0 mg/dL 1.6-2.6 627) Milk Delivery Driver ID - NAYANA [id number] 02:19:45 Test Item Value Reference Range Interpretation Comments PHOSPHORUS (BEAKER) (test code = 3.0 mg/dL 2.3-4.7 604) Milk Delivery Driver ID - NAYANA GBASIC METABOLIC [id number] 02:19:44 Test Item Value Reference Range Interpretation Comments SODIUM (BEAKER) 136 meq/L 136-145 (test code = 381) POTASSIUM (BEAKER) 4.1 meq/L 3.5-5.1 (test code = 379) CHLORIDE (BEAKER) 105 meq/L 98-107 (test code = 382) CO2 (BEAKER) (test 23 meq/L 22-29 code = 355) BLOOD UREA NITROGEN 11 mg/dL 7-21 (BEAKER) (test code = 354) CREATININE (BEAKER) 0.80 mg/dL 0.57-1.25 (test code = 358) GLUCOSE RANDOM 130 mg/dL 70-105 H (BEAKER) (test code = 652) CALCIUM (BEAKER) 8.6 mg/dL 8.4-10.2 (test code = 697) EGFR (BEAKER) (test 99 mL/min/1.73 [place] GFR IS code = 1092) sq m NOT ACCURATE CREATININE CLEARANCE IN PREDICTING GLOMERULAR FILTRATION RATE . ESTIMATED GFR I S NOT APPLICABLE FOR DIALYSIS PATIEN TS. Milk Delivery Driver ID - NAYANA GCBC W/PLT COUNT & AUTO [id number] 01:56:52 Test Item Value Reference Range Interpretation Comments WHITE BLOOD CELL COUNT (BEAKER) 10.7 K/ L 3.5-10.5 H (test code = 775) RED BLOOD CELL COUNT (BEAKER) 4.01 M/ L 4.63-6.08 L (test code = 761) HEMOGLOBIN (BEAKER) (test code = 12.4 GM/DL 13.7-17.5 L 410) HEMATOCRIT (BEAKER) (test code = 37.2 % 40.1-51.0 L 411) MEAN CORPUSCULAR VOLUME (BEAKER) 92.8 fL 79.0-92.2 H (test code = 753) MEAN CORPUSCULAR HEMOGLOBIN 30.9 pg 25.7-32.2 (BEAKER) (test code = 751) MEAN CORPUSCULAR HEMOGLOBIN CONC 33.3 GM/DL 32.3-36.5 (BEAKER) (test code = 752) RED CELL DISTRIBUTION WIDTH 12.9 % 11.6-14.4 (BEAKER) (test code = 412) PLATELET COUNT (BEAKER) (test 388 K/CU MM 150-450 code = 756) MEAN PLATELET VOLUME (BEAKER) 9.9 fL 9.4-12.4 (test code = 754) NUCLEATED RED BLOOD CELLS 0 /100 WBC 0-0 (BEAKER) (test code = 413) NEUTROPHILS RELATIVE PERCENT 59 % (BEAKER) (test code = 429) LYMPHOCYTES RELATIVE PERCENT 29 % (BEAKER) (test code = 430) MONOCYTES RELATIVE PERCENT 9 % (BEAKER) (test code = 431) EOSINOPHILS RELATIVE PERCENT 2 % (BEAKER) (test code = 432) BASOPHILS RELATIVE PERCENT 1 % (BEAKER) (test code = 437) NEUTROPHILS ABSOLUTE COUNT 6.28 K/ L 1.78-5.38 H (BEAKER) (test code = 670) LYMPHOCYTES ABSOLUTE COUNT 3.10 K/ L 1.32-3.57 (BEAKER) (test code = 414) MONOCYTES ABSOLUTE COUNT (BEAKER) 0.96 K/ L 0.30-0.82 H (test code = 415) EOSINOPHILS ABSOLUTE COUNT 0.23 K/ L 0.04-0.54 (BEAKER) (test code = 416) BASOPHILS ABSOLUTE COUNT (BEAKER) 0.06 K/ L 0.01-0.08 (test code = 417) IMMATURE GRANULOCYTES-RELATIVE 1 % 0-1 PERCENT (BEAKER) (test code = 2801) [id number] 19:01:29 Test Item Value Reference Range Interpretation Comments SODIUM (BEAKER) (test code = 381) 136 meq/L 136-145 Milk Delivery Driver ID - DBBASIC METABOLIC [id number] 14:07:58 Test Item Value Reference Range Interpretation Comments SODIUM (BEAKER) 135 meq/L 136-145 L (test code = 381) POTASSIUM (BEAKER) 4.0 meq/L 3.5-5.1 Specimen slightly (test code = 379) hemolyzed CHLORIDE (BEAKER) 102 meq/L 98-107 (test code = 382) CO2 (BEAKER) (test 23 meq/L 22-29 code = 355) BLOOD UREA NITROGEN 13 mg/dL 7-21 (BEAKER) (test code = 354) CREATININE (BEAKER) 0.92 mg/dL 0.57-1.25 Specimen slightly (test code = 358) hemolyzed GLUCOSE RANDOM 153 mg/dL 70-105 H (BEAKER) (test code = 652) CALCIUM (BEAKER) 9.0 mg/dL 8.4-10.2 (test code = 697) EGFR (BEAKER) (test 84 mL/min/1.73 [place] GFR IS code = 1092) sq m NOT ACCURATE CREATININE CLEARANCE IN PREDICTING GLOMERULAR FILTRATION RATE . ESTIMATED GFR I S NOT APPLICABLE FOR DIALYSIS PATIEN TS. Milk Delivery Driver ID - CHARU [id number] 03:53:38 Test Item Value Reference Range Interpretation Comments MAGNESIUM (BEAKER) (test code = 1.9 mg/dL 1.6-2.6 627) Milk Delivery Driver ID - [id number] 03:53:38 Test Item Value Reference Range Interpretation Comments PHOSPHORUS (BEAKER) (test code = 3.7 mg/dL 2.3-4.7 604) Milk Delivery Driver ID - BSBASIC METABOLIC [id number] 03:53:37 Test Item Value Reference Range Interpretation Comments SODIUM (BEAKER) 134 meq/L 136-145 L (test code = 381) POTASSIUM (BEAKER) 3.8 meq/L 3.5-5.1 (test code = 379) CHLORIDE (BEAKER) 103 meq/L 98-107 (test code = 382) CO2 (BEAKER) (test 21 meq/L 22-29 L code = 355) BLOOD UREA NITROGEN 12 mg/dL 7-21 (BEAKER) (test code = 354) CREATININE (BEAKER) 0.89 mg/dL 0.57-1.25 (test code = 358) GLUCOSE RANDOM 142 mg/dL 70-105 H (BEAKER) (test code = 652) CALCIUM (BEAKER) 9.5 mg/dL 8.4-10.2 (test code = 697) EGFR (BEAKER) (test 88 mL/min/1.73 [place] GFR IS code = 1092) sq m NOT ACCURATE CREATININE CLEARANCE IN PREDICTING GLOMERULAR FILTRATION RATE . ESTIMATED GFR I S NOT APPLICABLE FOR DIALYSIS PATIEN TS. Milk Delivery Driver ID - BSCBC W/PLT COUNT & AUTO [id number] 03:32:08 Test Item Value Reference Range Interpretation Comments WHITE BLOOD CELL COUNT (BEAKER) 12.4 K/ L 3.5-10.5 H (test code = 775) RED BLOOD CELL COUNT (BEAKER) 4.16 M/ L 4.63-6.08 L (test code = 761) HEMOGLOBIN (BEAKER) (test code = 13.0 GM/DL 13.7-17.5 L 410) HEMATOCRIT (BEAKER) (test code = 38.3 % 40.1-51.0 L 411) MEAN CORPUSCULAR VOLUME (BEAKER) 92.1 fL 79.0-92.2 (test code = 753) MEAN CORPUSCULAR HEMOGLOBIN 31.3 pg 25.7-32.2 (BEAKER) (test code = 751) MEAN CORPUSCULAR HEMOGLOBIN CONC 33.9 GM/DL 32.3-36.5 (BEAKER) (test code = 752) RED CELL DISTRIBUTION WIDTH 12.7 % 11.6-14.4 (BEAKER) (test code = 412) PLATELET COUNT (BEAKER) (test 422 K/CU MM 150-450 code = 756) MEAN PLATELET VOLUME (BEAKER) 9.9 fL 9.4-12.4 (test code = 754) NUCLEATED RED BLOOD CELLS 0 /100 WBC 0-0 (BEAKER) (test code = 413) NEUTROPHILS RELATIVE PERCENT 64 % (BEAKER) (test code = 429) LYMPHOCYTES RELATIVE PERCENT 23 % (BEAKER) (test code = 430) MONOCYTES RELATIVE PERCENT 9 % (BEAKER) (test code = 431) EOSINOPHILS RELATIVE PERCENT 2 % (BEAKER) (test code = 432) BASOPHILS RELATIVE PERCENT 0 % (BEAKER) (test code = 437) NEUTROPHILS ABSOLUTE COUNT 7.94 K/ L 1.78-5.38 H (BEAKER) (test code = 670) LYMPHOCYTES ABSOLUTE COUNT 2.89 K/ L 1.32-3.57 (BEAKER) (test code = 414) MONOCYTES ABSOLUTE COUNT (BEAKER) 1.11 K/ L 0.30-0.82 H (test code = 415) EOSINOPHILS ABSOLUTE COUNT 0.29 K/ L 0.04-0.54 (BEAKER) (test code = 416) BASOPHILS ABSOLUTE COUNT (BEAKER) 0.04 K/ L 0.01-0.08 (test code = 417) IMMATURE GRANULOCYTES-RELATIVE 1 % 0-1 PERCENT (BEAKER) (test code = 2801) CARDIOLIPIN ANTIBODIES, IGG AND [id number] 14:05:35 Test Item Value Reference Range Interpretation Comments ANTICARDIOLIPIN IGG ANTIBODY (BEAKER) < GPL <20.0 (test code = 712) ANTICARDIOLIPIN IGM ANTIBODY (BEAKER) < MPL <20.0 (test code = 713) Anticardiolipin IgG Result Interpretation: <20.0 GPL Normal>/= 20.0 GPL PositiveAnticardiolipin IgM Result Interpretation: <20.0 MPL Normal>/= 20.0 MPL [id number] 03:31:30 Test Item Value Reference Range Interpretation Comments PHOSPHORUS (BEAKER) (test code = 3.2 mg/dL 2.3-4.7 604) 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 [id number] 03:31:29 Test Item Value Reference Range Interpretation Comments SODIUM (BEAKER) 136 meq/L 136-145 (test code = 381) POTASSIUM (BEAKER) 4.2 meq/L 3.5-5.1 (test code = 379) CHLORIDE (BEAKER) 105 meq/L 98-107 (test code = 382) CO2 (BEAKER) (test 21 meq/L 22-29 L code = 355) BLOOD UREA NITROGEN 11 mg/dL 7-21 (BEAKER) (test code = 354) CREATININE (BEAKER) 0.80 mg/dL 0.57-1.25 (test code = 358) GLUCOSE RANDOM 138 mg/dL 70-105 H (BEAKER) (test code = 652) CALCIUM (BEAKER) 8.8 mg/dL 8.4-10.2 (test code = 697) EGFR (BEAKER) (test 99 mL/min/1.73 [place] GFR IS code = 1092) sq m NOT ACCURATE CREATININE CLEARANCE IN PREDICTING GLOMERULAR FILTRATION RATE . ESTIMATED GFR I S NOT APPLICABLE FOR DIALYSIS PATIEN TS. Milk Delivery Driver [employer] [id number] 03:31:29 Test Item Value Reference Range Interpretation Comments MAGNESIUM (BEAKER) (test code = 2.0 mg/dL 1.6-2.6 627) Milk Delivery Driver [employer] [facility] W/PLT COUNT & AUTO [id number] 03:17:56 Test Item Value Reference Range Interpretation Comments WHITE BLOOD CELL COUNT (BEAKER) 12.4 K/ L 3.5-10.5 H (test code = 775) RED BLOOD CELL COUNT (BEAKER) 4.09 M/ L 4.63-6.08 L (test code = 761) HEMOGLOBIN (BEAKER) (test code = 12.7 GM/DL 13.7-17.5 L 410) HEMATOCRIT (BEAKER) (test code = 37.2 % 40.1-51.0 L 411) MEAN CORPUSCULAR VOLUME (BEAKER) 91.0 fL 79.0-92.2 (test code = 753) MEAN CORPUSCULAR HEMOGLOBIN 31.1 pg 25.7-32.2 (BEAKER) (test code = 751) MEAN CORPUSCULAR HEMOGLOBIN CONC 34.1 GM/DL 32.3-36.5 (BEAKER) (test code = 752) RED CELL DISTRIBUTION WIDTH 12.6 % 11.6-14.4 (BEAKER) (test code = 412) PLATELET COUNT (BEAKER) (test 355 K/CU MM 150-450 code = 756) MEAN PLATELET VOLUME (BEAKER) 10.2 fL 9.4-12.4 (test code = 754) NUCLEATED RED BLOOD CELLS 0 /100 WBC 0-0 (BEAKER) (test code = 413) NEUTROPHILS RELATIVE PERCENT 66 % (BEAKER) (test code = 429) LYMPHOCYTES RELATIVE PERCENT 21 % (BEAKER) (test code = 430) MONOCYTES RELATIVE PERCENT 9 % (BEAKER) (test code = 431) EOSINOPHILS RELATIVE PERCENT 3 % (BEAKER) (test code = 432) BASOPHILS RELATIVE PERCENT 0 % (BEAKER) (test code = 437) NEUTROPHILS ABSOLUTE COUNT 8.24 K/ L 1.78-5.38 H (BEAKER) (test code = 670) LYMPHOCYTES ABSOLUTE COUNT 2.63 K/ L 1.32-3.57 (BEAKER) (test code = 414) MONOCYTES ABSOLUTE COUNT (BEAKER) 1.10 K/ L 0.30-0.82 H (test code = 415) EOSINOPHILS ABSOLUTE COUNT 0.33 K/ L 0.04-0.54 (BEAKER) (test code = 416) BASOPHILS ABSOLUTE COUNT (BEAKER) 0.05 K/ L 0.01-0.08 (test code = 417) IMMATURE GRANULOCYTES-RELATIVE 1 % 0-1 PERCENT (BEAKER) (test code = 2801) [id number] 19:13:47 Test Item Value Reference Range Interpretation Comments MAGNESIUM (BEAKER) 2.1 mg/dL 1.6-2.6 Specimen moderately (test code = 627) hemolyzed Milk Delivery Driver ID - [id number] 19:13:47 Test Item Value Reference Range Interpretation Comments POTASSIUM (BEAKER) 4.2 meq/L 3.5-5.1 Specimen moderately (test code = 379) hemolyzed Milk Delivery Driver ID - [id number] 04:48:35 Test Item Value Reference Range Interpretation Comments PHOSPHORUS (BEAKER) 2.4 mg/dL 2.3-4.7 Specimen slightly (test code = 604) hemolyzed Milk Delivery Driver ID - NAYANA GBASIC METABOLIC [id number] 04:48:35 Test Item Value Reference Range Interpretation Comments SODIUM (BEAKER) 136 meq/L 136-145 (test code = 381) POTASSIUM (BEAKER) 3.9 meq/L 3.5-5.1 Specimen slightly (test code = 379) hemolyzed CHLORIDE (BEAKER) 105 meq/L 98-107 (test code = 382) CO2 (BEAKER) (test 23 meq/L 22-29 code = 355) BLOOD UREA NITROGEN 12 mg/dL 7-21 (BEAKER) (test code = 354) CREATININE (BEAKER) 0.69 mg/dL 0.57-1.25 Specimen slightly (test code = 358) hemolyzed GLUCOSE RANDOM 129 mg/dL 70-105 H (BEAKER) (test code = 652) CALCIUM (BEAKER) 8.5 mg/dL 8.4-10.2 (test code = 697) EGFR (BEAKER) (test 118 mL/min/1.73 ESTIM ATED GFR IS code = 1092) sq m NOT ACCURATE CREATININE CLEARANCE IN PREDICTING GLOMERULAR FILTRATION RATE . ESTIMATED GFR I S NOT APPLICABLE FOR DIALYSIS PATIEN TS. Milk Delivery Driver ID - NAYANA [id number] 04:48:34 Test Item Value Reference Range Interpretation Comments MAGNESIUM (BEAKER) 2.0 mg/dL 1.6-2.6 Specimen slightly (test code = 627) hemolyzed Milk Delivery Driver ID - NAYANA GCBC W/PLT COUNT & AUTO [id number] 04:20:41 Test Item Value Reference Range Interpretation Comments WHITE BLOOD CELL COUNT (BEAKER) 11.0 K/ L 3.5-10.5 H (test code = 775) RED BLOOD CELL COUNT (BEAKER) 4.02 M/ L 4.63-6.08 L (test code = 761) HEMOGLOBIN (BEAKER) (test code = 12.5 GM/DL 13.7-17.5 L 410) HEMATOCRIT (BEAKER) (test code = 36.7 % 40.1-51.0 L 411) MEAN CORPUSCULAR VOLUME (BEAKER) 91.3 fL 79.0-92.2 (test code = 753) MEAN CORPUSCULAR HEMOGLOBIN 31.1 pg 25.7-32.2 (BEAKER) (test code = 751) MEAN CORPUSCULAR HEMOGLOBIN CONC 34.1 GM/DL 32.3-36.5 (BEAKER) (test code = 752) RED CELL DISTRIBUTION WIDTH 12.6 % 11.6-14.4 (BEAKER) (test code = 412) PLATELET COUNT (BEAKER) (test 330 K/CU MM 150-450 code = 756) MEAN PLATELET VOLUME (BEAKER) 10.2 fL 9.4-12.4 (test code = 754) NUCLEATED RED BLOOD CELLS 0 /100 WBC 0-0 (BEAKER) (test code = 413) NEUTROPHILS RELATIVE PERCENT 72 % (BEAKER) (test code = 429) LYMPHOCYTES RELATIVE PERCENT 18 % (BEAKER) (test code = 430) MONOCYTES RELATIVE PERCENT 8 % (BEAKER) (test code = 431) EOSINOPHILS RELATIVE PERCENT 2 % (BEAKER) (test code = 432) BASOPHILS RELATIVE PERCENT 0 % (BEAKER) (test code = 437) NEUTROPHILS ABSOLUTE COUNT 7.92 K/ L 1.78-5.38 H (BEAKER) (test code = 670) LYMPHOCYTES ABSOLUTE COUNT 1.95 K/ L 1.32-3.57 (BEAKER) (test code = 414) MONOCYTES ABSOLUTE COUNT (BEAKER) 0.91 K/ L 0.30-0.82 H (test code = 415) EOSINOPHILS ABSOLUTE COUNT 0.18 K/ L 0.04-0.54 (BEAKER) (test code = 416) BASOPHILS ABSOLUTE COUNT (BEAKER) 0.03 K/ L 0.01-0.08 (test code = 417) IMMATURE GRANULOCYTES-RELATIVE 1 % 0-1 PERCENT (BEAKER) (test code = 2808) [id number] 18:29:12 Test Item Value Reference Range Interpretation Comments SODIUM (BEAKER) (test code = 381) 139 meq/L 136-145 Milk Delivery Driver ID - [id number] 14:48:58 Test Item Value Reference Range Interpretation Comments POTASSIUM (BEAKER) (test code = 4.3 meq/L 3.5-5.1 379) Milk Delivery Driver ID - CHARU [id number] 14:48:56 Test Item Value Reference Range Interpretation Comments MAGNESIUM (BEAKER) (test code = 2.2 mg/dL 1.6-2.6 627) Milk Delivery Driver [employer]OX MCBC W/PLT COUNT & AUTO [id number] 05:46:33 Test Item Value Reference Range Interpretation Comments WHITE BLOOD CELL COUNT (BEAKER) 9.9 K/ L 3.5-10.5 (test code = 775) RED BLOOD CELL COUNT (BEAKER) 3.99 M/ L 4.63-6.08 L (test code = 761) HEMOGLOBIN (BEAKER) (test code = 12.4 GM/DL 13.7-17.5 L 410) HEMATOCRIT (BEAKER) (test code = 35.6 % 40.1-51.0 L 411) MEAN CORPUSCULAR VOLUME (BEAKER) 89.2 fL 79.0-92.2 (test code = 753) MEAN CORPUSCULAR HEMOGLOBIN 31.1 pg 25.7-32.2 (BEAKER) (test code = 751) MEAN CORPUSCULAR HEMOGLOBIN CONC 34.8 GM/DL 32.3-36.5 (BEAKER) (test code = 752) RED CELL DISTRIBUTION WIDTH 12.5 % 11.6-14.4 (BEAKER) (test code = 412) PLATELET COUNT (BEAKER) (test 302 K/CU MM 150-450 code = 756) MEAN PLATELET VOLUME (BEAKER) 10.3 fL 9.4-12.4 (test code = 754) NUCLEATED RED BLOOD CELLS 0 /100 WBC 0-0 (BEAKER) (test code = 413) NEUTROPHILS RELATIVE PERCENT 69 % (BEAKER) (test code = 429) LYMPHOCYTES RELATIVE PERCENT 17 % (BEAKER) (test code = 430) MONOCYTES RELATIVE PERCENT 9 % (BEAKER) (test code = 431) EOSINOPHILS RELATIVE PERCENT 4 % (BEAKER) (test code = 432) BASOPHILS RELATIVE PERCENT 0 % (BEAKER) (test code = 437) NEUTROPHILS ABSOLUTE COUNT 6.81 K/ L 1.78-5.38 H (BEAKER) (test code = 670) LYMPHOCYTES ABSOLUTE COUNT 1.72 K/ L 1.32-3.57 (BEAKER) (test code = 414) MONOCYTES ABSOLUTE COUNT (BEAKER) 0.89 K/ L 0.30-0.82 H (test code = 415) EOSINOPHILS ABSOLUTE COUNT 0.37 K/ L 0.04-0.54 (BEAKER) (test code = 416) BASOPHILS ABSOLUTE COUNT (BEAKER) 0.02 K/ L 0.01-0.08 (test code = 417) IMMATURE GRANULOCYTES-RELATIVE 1 % 0-1 PERCENT (BEAKER) (test code = 2801) [id number] 04:24:03 Test Item Value Reference Range Interpretation Comments PHOSPHORUS (BEAKER) (test code = 3.2 mg/dL 2.3-4.7 604) Milk Delivery Driver ID - CHARU [id number] 04:24:02 Test Item Value Reference Range Interpretation Comments MAGNESIUM (BEAKER) (test code = 2.1 mg/dL 1.6-2.6 627) Milk Delivery Driver ID - CHARU MBASIC METABOLIC [id number] 04:24:01 Test Item Value Reference Range Interpretation Comments SODIUM (BEAKER) 136 meq/L 136-145 (test code = 381) POTASSIUM (BEAKER) 3.9 meq/L 3.5-5.1 (test code = 379) CHLORIDE (BEAKER) 104 meq/L 98-107 (test code = 382) CO2 (BEAKER) (test 23 meq/L 22-29 code = 355) BLOOD UREA NITROGEN 13 mg/dL 7-21 (BEAKER) (test code = 354) CREATININE (BEAKER) 0.75 mg/dL 0.57-1.25 (test code = 358) GLUCOSE RANDOM 103 mg/dL 70-105 (BEAKER) (test code = 652) CALCIUM (BEAKER) 8.4 mg/dL 8.4-10.2 (test code = 697) EGFR (BEAKER) (test 107 mL/min/1.73 ESTIM ATED GFR IS code = 1092) sq m NOT ACCURATE CREATININE CLEARANCE IN PREDICTING GLOMERULAR FILTRATION RATE . ESTIMATED GFR I S NOT APPLICABLE FOR DIALYSIS PATIEN TS. Milk Delivery Driver ID - CHARU [id number] 17:20:15 Test Item Value Reference Range Interpretation Comments MAGNESIUM (BEAKER) (test code = 2.0 mg/dL 1.6-2.6 627) Milk Delivery Driver ID - RUTH [id number] 17:20:15 Test Item Value Reference Range Interpretation Comments SODIUM (BEAKER) (test code = 381) 138 meq/L 136-145 Milk Delivery Driver ID - RUTH BCBC W/PLT COUNT & AUTO [id number] 07:21:01 Test Item Value Reference Range Interpretation Comments WHITE BLOOD CELL COUNT (BEAKER) 10.1 K/ L 3.5-10.5 (test code = 775) RED BLOOD CELL COUNT (BEAKER) 3.92 M/ L 4.63-6.08 L (test code = 761) HEMOGLOBIN (BEAKER) (test code = 12.1 GM/DL 13.7-17.5 L 410) HEMATOCRIT (BEAKER) (test code = 36.6 % 40.1-51.0 L 411) MEAN CORPUSCULAR VOLUME (BEAKER) 93.4 fL 79.0-92.2 H (test code = 753) MEAN CORPUSCULAR HEMOGLOBIN 30.9 pg 25.7-32.2 (BEAKER) (test code = 751) MEAN CORPUSCULAR HEMOGLOBIN CONC 33.1 GM/DL 32.3-36.5 (BEAKER) (test code = 752) RED CELL DISTRIBUTION WIDTH 12.6 % 11.6-14.4 (BEAKER) (test code = 412) PLATELET COUNT (BEAKER) (test 248 K/CU MM 150-450 code = 756) MEAN PLATELET VOLUME (BEAKER) 10.5 fL 9.4-12.4 (test code = 754) NUCLEATED RED BLOOD CELLS 0 /100 WBC 0-0 (BEAKER) (test code = 413) NEUTROPHILS RELATIVE PERCENT 69 % (BEAKER) (test code = 429) LYMPHOCYTES RELATIVE PERCENT 18 % (BEAKER) (test code = 430) MONOCYTES RELATIVE PERCENT 10 % (BEAKER) (test code = 431) EOSINOPHILS RELATIVE PERCENT 2 % (BEAKER) (test code = 432) BASOPHILS RELATIVE PERCENT 0 % (BEAKER) (test code = 437) NEUTROPHILS ABSOLUTE COUNT 6.95 K/ L 1.78-5.38 H (BEAKER) (test code = 670) LYMPHOCYTES ABSOLUTE COUNT 1.81 K/ L 1.32-3.57 (BEAKER) (test code = 414) MONOCYTES ABSOLUTE COUNT (BEAKER) 0.98 K/ L 0.30-0.82 H (test code = 415) EOSINOPHILS ABSOLUTE COUNT 0.18 K/ L 0.04-0.54 (BEAKER) (test code = 416) BASOPHILS ABSOLUTE COUNT (BEAKER) 0.03 K/ L 0.01-0.08 (test code = 417) IMMATURE GRANULOCYTES-RELATIVE 1 % 0-1 PERCENT (BEAKER) (test code = 2801) BASIC METABOLIC [id number] 07:02:58 Test Item Value Reference Range Interpretation Comments SODIUM (BEAKER) 136 meq/L 136-145 (test code = 381) POTASSIUM (BEAKER) 4.0 meq/L 3.5-5.1 Specimen slightly (test code = 379) hemolyzed CHLORIDE (BEAKER) 107 meq/L 98-107 (test code = 382) CO2 (BEAKER) (test 19 meq/L 22-29 L code = 355) BLOOD UREA NITROGEN 13 mg/dL 7-21 (BEAKER) (test code = 354) CREATININE (BEAKER) 0.72 mg/dL 0.57-1.25 Specimen slightly (test code = 358) hemolyzed GLUCOSE RANDOM 98 mg/dL 70-105 (BEAKER) (test code = 652) CALCIUM (BEAKER) 8.0 mg/dL 8.4-10.2 L (test code = 697) EGFR (BEAKER) (test 112 mL/min/1.73 ESTIM ATED GFR IS code = 1092) sq m NOT ACCURATE CREATININE CLEARANCE IN PREDICTING GLOMERULAR FILTRATION RATE . ESTIMATED GFR I S NOT APPLICABLE FOR DIALYSIS PATIEN TS. Milk Delivery Driver ID - [id number] 07:02:57 Test Item Value Reference Range Interpretation Comments PHOSPHORUS (BEAKER) 2.8 mg/dL 2.3-4.7 Specimen slightly (test code = 604) hemolyzed Milk Delivery Driver ID - [id number] 07:02:56 Test Item Value Reference Range Interpretation Comments MAGNESIUM (BEAKER) 2.2 mg/dL 1.6-2.6 Specimen slightly (test code = 627) hemolyzed Milk Delivery Driver ID - [id number] 22:23:38 Test Item Value Reference Range Interpretation Comments SODIUM (BEAKER) (test code = 381) 137 meq/L 136-145 Milk Delivery Driver ID - [id number] 22:23:37 Test Item Value Reference Range Interpretation Comments POTASSIUM (BEAKER) 4.0 meq/L 3.5-5.1 Specimen moderately (test code = 379) hemolyzed Milk Delivery Driver ID - [id number] 22:23:36 Test Item Value Reference Range Interpretation Comments MAGNESIUM (BEAKER) 2.1 mg/dL 1.6-2.6 Specimen moderately (test code = 627) hemolyzed Milk Delivery Driver ID - DBCT, BRAIN, WITHOUT [id number] 17:29:00Unlisted Reason for Exam - Click Yes and Enter Reason Below->No [facility] : 1965 Sex: MFINAL REPORT CT, BRAIN, WITHOUT CONTRAST CLINICAL INDICATION: Cerebral hemorrhage suspectedCOMPARISON: 10/30/2021. TECHNIQUE: Noncontrast axial CT imaging of the brain and skull. DOSE REDUCTION: Dose modulation, iterative reconstruction, and/or weight-based adjustment of the mA/kV was utilized to reduce the radiation dose to as low as reasonably achievable. FINDINGS:Interval left suboccipital craniotomy for decompression of mass effect within the posterior fossa with evolving left cerebellar infarct. Small volume blood products are noted at the periphery of the resection margin. Persistentmass effect within the posterior fossa with effacement of the fourth ventricle. Persistent superior herniation. There is inferior herniation through the decompressive craniotomy. Unchanged complete effacement of the ventral prepontine CSF space. Right frontal approach ventricular catheter is again note d, terminating in the frontal horn of the right lateral ventricle. Persistent mild hydrocephalus with persistent periventricular interstitial edema adjacent to the temporal horns. Orbits are within normal limits. No obstructive paranasal sinus disease. IMPRESSION: Interval decompressive left suboccipital craniotomy for an evolving left cerebellar hemispheric infarct. Progressive mass effect with persistent superior and inferior herniation. Persistent effacement of the prepontine cistern and effacement of the fourth ventricle. Small volume acute hemorrhage within the left cerebellar hemisphere, subjacent to the surgical approach. Unchanged supratentorial hydrocephalus with right frontal approach jamaal tricular catheter in place. Left vertebral artery is markedly dense, which may represent persistent intraluminal thrombus. If there is persistent clinical concern for intracranial pathology, MR examination is recommended for further characterization. Signed: Dago Brewer MDReport Verified Date/Time: 11/01/2021 17:29:46 [id number] 07:16:42 Test Item Value Reference Range Interpretation Comments PHOSPHORUS (BEAKER) 2.2 mg/dL 2.3-4.7 L Specimen slightly (test code = 604) hemolyzed Milk Delivery Driver ID - [id number] 07:16:41 Test Item Value Reference Range Interpretation Comments MAGNESIUM (BEAKER) 1.9 mg/dL 1.6-2.6 Specimen slightly (test code = 627) hemolyzed Milk Delivery Driver ID - ADMINBASIC METABOLIC [id number] 06:48:06 Test Item Value Reference Range Interpretation Comments SODIUM (BEAKER) 141 meq/L 136-145 (test code = 381) POTASSIUM (BEAKER) 3.4 meq/L 3.5-5.1 L Specimen slightly (test code = 379) hemolyzed CHLORIDE (BEAKER) 108 meq/L 98-107 H (test code = 382) CO2 (BEAKER) (test 22 meq/L 22-29 code = 355) BLOOD UREA NITROGEN 10 mg/dL 7-21 (BEAKER) (test code = 354) CREATININE (BEAKER) 0.72 mg/dL 0.57-1.25 Specimen slightly (test code = 358) hemolyzed GLUCOSE RANDOM 133 mg/dL 70-105 H (BEAKER) (test code = 652) CALCIUM (BEAKER) 7.8 mg/dL 8.4-10.2 L (test code = 697) EGFR (BEAKER) (test 112 mL/min/1.73 ESTIM ATED GFR IS code = 1092) sq m NOT ACCURATE CREATININE CLEARANCE IN PREDICTING GLOMERULAR FILTRATION RATE . ESTIMATED GFR I S NOT APPLICABLE FOR DIALYSIS PATIEN TS. Milk Delivery Driver ID - DBCBC W/PLT COUNT & AUTO [id number] 06:37:49 Test Item Value Reference Range Interpretation Comments WHITE BLOOD CELL COUNT (BEAKER) 13.2 K/ L 3.5-10.5 H (test code = 775) RED BLOOD CELL COUNT (BEAKER) 3.88 M/ L 4.63-6.08 L (test code = 761) HEMOGLOBIN (BEAKER) (test code = 12.0 GM/DL 13.7-17.5 L 410) HEMATOCRIT (BEAKER) (test code = 36.8 % 40.1-51.0 L 411) MEAN CORPUSCULAR VOLUME (BEAKER) 94.8 fL 79.0-92.2 H (test code = 753) MEAN CORPUSCULAR HEMOGLOBIN 30.9 pg 25.7-32.2 (BEAKER) (test code = 751) MEAN CORPUSCULAR HEMOGLOBIN CONC 32.6 GM/DL 32.3-36.5 (BEAKER) (test code = 752) RED CELL DISTRIBUTION WIDTH 12.7 % 11.6-14.4 (BEAKER) (test code = 412) PLATELET COUNT (BEAKER) (test 259 K/CU MM 150-450 code = 756) MEAN PLATELET VOLUME (BEAKER) 10.8 fL 9.4-12.4 (test code = 754) NUCLEATED RED BLOOD CELLS 0 /100 WBC 0-0 (BEAKER) (test code = 413) NEUTROPHILS RELATIVE PERCENT 72 % (BEAKER) (test code = 429) LYMPHOCYTES RELATIVE PERCENT 17 % (BEAKER) (test code = 430) MONOCYTES RELATIVE PERCENT 9 % (BEAKER) (test code = 431) EOSINOPHILS RELATIVE PERCENT 0 % (BEAKER) (test code = 432) BASOPHILS RELATIVE PERCENT 0 % (BEAKER) (test code = 437) NEUTROPHILS ABSOLUTE COUNT 9.52 K/ L 1.78-5.38 H (BEAKER) (test code = 670) LYMPHOCYTES ABSOLUTE COUNT 2.26 K/ L 1.32-3.57 (BEAKER) (test code = 414) MONOCYTES ABSOLUTE COUNT (BEAKER) 1.22 K/ L 0.30-0.82 H (test code = 415) EOSINOPHILS ABSOLUTE COUNT 0.03 K/ L 0.04-0.54 L (BEAKER) (test code = 416) BASOPHILS ABSOLUTE COUNT (BEAKER) 0.02 K/ L 0.01-0.08 (test code = 417) IMMATURE GRANULOCYTES-RELATIVE 1 % 0-1 PERCENT (BEAKER) (test code = 2801) [id number] 01:16:41 Test Item Value Reference Range Interpretation Comments SODIUM (BEAKER) (test code = 381) 140 meq/L 136-145 Milk Delivery Driver ID - [id number] 18:05:30 Test Item Value Reference Range Interpretation Comments SODIUM (BEAKER) (test code = 381) 139 meq/L 136-145 Milk Delivery Driver ID - NAYANA GBASIC METABOLIC [id number] 17:10:16 Test Item Value Reference Range Interpretation Comments SODIUM (BEAKER) 141 meq/L 136-145 (test code = 381) POTASSIUM (BEAKER) 3.5 meq/L 3.5-5.1 (test code = 379) CHLORIDE (BEAKER) 111 meq/L 98-107 H (test code = 382) CO2 (BEAKER) (test 19 meq/L 22-29 L code = 355) BLOOD UREA NITROGEN 11 mg/dL 7-21 (BEAKER) (test code = 354) CREATININE (BEAKER) 0.81 mg/dL 0.57-1.25 (test code = 358) GLUCOSE RANDOM 148 mg/dL 70-105 H (BEAKER) (test code = 652) CALCIUM (BEAKER) 8.1 mg/dL 8.4-10.2 L (test code = 697) EGFR (BEAKER) (test 98 mL/min/1.73 [place] GFR IS code = 1092) sq m NOT ACCURATE CREATININE CLEARANCE IN PREDICTING GLOMERULAR FILTRATION RATE . ESTIMATED GFR I S NOT APPLICABLE FOR DIALYSIS PATIEN TS. Milk Delivery Driver ID - [id number] 16:08:24 Test Item Value Reference Range Interpretation Comments SODIUM (BEAKER) (test code = 381) 143 meq/L 136-145 Milk Delivery Driver ID - NAYANA [id number] 09:47:43 Test Item Value Reference Range Interpretation Comments PROCALCITONIN (BEAKER) (test code 0.07 ng/mL <0.05 H = 3036) SEPSIS RISK (ng/mL)Low: 0.05-0.50Intermediate: 0.51-2.00High: >=2.01RAD, CHEST, 1 VIEW, NON [id number] 07:48:00Reason for exam:->Shortness and breathShould this be performed at the bedside?->Yes [facility] 1965 Sex: MFINAL REPORT RAD, CHEST, 1 VIEW, NON DEPT INDICATION: Shortness and breath COMPARISON: October 29, 2021 FINDINGS: Portable frontal view of the chest. IMPRESSION: Support Lines: Stable. Lungs and pleura: Improved interstitial edema. No new consolidation. Trace left effusion. No pneumothorax.Heart and mediastinum: Stable contours. Additional findings: None. Signed: JR Randolph Robert MDReport Verified Date/Time: 10/31/2021 07:48:12 Reading Location: [facility] Radiology Reading Room BASIC METABOLIC PANEL 2021-10-31 04:31:15 Test Item Value Reference Range Interpretation Comments SODIUM (BEAKER) 149 meq/L 136-145 H (test code = 381) POTASSIUM (BEAKER) 3.6 meq/L 3.5-5.1 (test code = 379) CHLORIDE (BEAKER) 117 meq/L 98-107 H (test code = 382) CO2 (BEAKER) (test 22 meq/L 22-29 code = 355) BLOOD UREA NITROGEN 11 mg/dL 7-21 (BEAKER) (test code = 354) CREATININE (BEAKER) 0.82 mg/dL 0.57-1.25 (test code = 358) GLUCOSE RANDOM 161 mg/dL 70-105 H (BEAKER) (test code = 652) CALCIUM (BEAKER) 8.2 mg/dL 8.4-10.2 L (test code = 697) EGFR (BEAKER) (test 96 mL/min/1.73 [place] GFR IS code = 1092) sq m NOT ACCURATE CREATININE CLEARANCE IN PREDICTING GLOMERULAR FILTRATION RATE . ESTIMATED GFR I S NOT APPLICABLE FOR DIALYSIS PATIEN TS. Milk Delivery Driver ID - NAYANA GCBC W/PLT COUNT & AUTO [id number] 04:18:59 Test Item Value Reference Range Interpretation Comments WHITE BLOOD CELL COUNT (BEAKER) 13.2 K/ L 3.5-10.5 H (test code = 775) RED BLOOD CELL COUNT (BEAKER) 3.76 M/ L 4.63-6.08 L (test code = 761) HEMOGLOBIN (BEAKER) (test code = 11.8 GM/DL 13.7-17.5 L 410) HEMATOCRIT (BEAKER) (test code = 36.7 % 40.1-51.0 L 411) MEAN CORPUSCULAR VOLUME (BEAKER) 97.6 fL 79.0-92.2 H (test code = 753) MEAN CORPUSCULAR HEMOGLOBIN 31.4 pg 25.7-32.2 (BEAKER) (test code = 751) MEAN CORPUSCULAR HEMOGLOBIN CONC 32.2 GM/DL 32.3-36.5 L (BEAKER) (test code = 752) RED CELL DISTRIBUTION WIDTH 13.6 % 11.6-14.4 (BEAKER) (test code = 412) PLATELET COUNT (BEAKER) (test 260 K/CU MM 150-450 code = 756) MEAN PLATELET VOLUME (BEAKER) 11.2 fL 9.4-12.4 (test code = 754) NUCLEATED RED BLOOD CELLS 0 /100 WBC 0-0 (BEAKER) (test code = 413) NEUTROPHILS RELATIVE PERCENT 83 % (BEAKER) (test code = 429) LYMPHOCYTES RELATIVE PERCENT 8 % (BEAKER) (test code = 430) MONOCYTES RELATIVE PERCENT 8 % (BEAKER) (test code = 431) EOSINOPHILS RELATIVE PERCENT 0 % (BEAKER) (test code = 432) BASOPHILS RELATIVE PERCENT 0 % (BEAKER) (test code = 437) NEUTROPHILS ABSOLUTE COUNT 10.97 K/ L 1.78-5.38 H (BEAKER) (test code = 670) LYMPHOCYTES ABSOLUTE COUNT 1.04 K/ L 1.32-3.57 L (BEAKER) (test code = 414) MONOCYTES ABSOLUTE COUNT (BEAKER) 1.02 K/ L 0.30-0.82 H (test code = 415) EOSINOPHILS ABSOLUTE COUNT 0.00 K/ L 0.04-0.54 L (BEAKER) (test code = 416) BASOPHILS ABSOLUTE COUNT (BEAKER) 0.01 K/ L 0.01-0.08 (test code = 417) IMMATURE GRANULOCYTES-RELATIVE 1 % 0-1 PERCENT (BEAKER) (test code = 2801) CALCIUM, [id number] 19:21:00 Test Item Value Reference Range Interpretation Comments CALCIUM IONIZED (BEAKER) (test 1.07 mmol/L 1.12-1.27 L code = 698) PH, BLOOD (BEAKER) (test code = 7.49 1810) HGB/HCT (H&H) - STAT [id number] 19:20:59 Test Item Value Reference Range Interpretation Comments HEMOGLOBIN (BEAKER) (test code = 11.9 GM/DL 13.0-16.8 L 410) HEMATOCRIT (BEAKER) (test code = 35.0 % 40.0-50.0 L 411) POTASSIUM-STAT [id number] 19:20:58 Test Item Value Reference Range Interpretation Comments POTASSIUM (BEAKER) (test code = 3.1 meq/L 3.6-5.5 L 379) GLUCOSE-STAT [id number] 19:20:58 Test Item Value Reference Range Interpretation Comments GLUCOSE RANDOM (BEAKER) (test code 138 mg/dL 70-110 H = 652) BLOOD GAS, [id number] 19:20:57 Test Item Value Reference Range Interpretation Comments PH ARTERIAL (BEAKER) (test code = 7.49 7.35-7.45 H 383) PCO2 ARTERIAL (BEAKER) (test code 30 mm Hg 35-45 L = 384) PO2 ARTERIAL (BEAKER) (test code = 152 mm Hg 80-90 H 385) O2 SATURATION ARTERIAL (BEAKER) 99.1 % 96.0-97.0 H (test code = 386) HCO3 ARTERIAL (BEAKER) (test code 23 mmol/L 21-29 = 388) BASE EXCESS ARTERIAL (BEAKER) 0.1 mmol/L -2.0-3.0 (test code = 387) PATIENT TEMPERATURE (BEAKER) (test 37.0 code = 1818) FIO2 (BEAKER) (test code = 1819) 55.0 SODIUM NA-STAT [id number] 19:17:48 Test Item Value Reference Range Interpretation Comments SODIUM (BEAKER) (test code = 381) 147 meq/L 136-[address], BRAIN, WITHOUT [id number] 14:25:00Unlisted Reason for Exam - Click Yes and Enter Reason Below->YesUnlisted Reason for Exam->L cerebellar hemispheric stroke. Follow cerebellar edema [facility] : 1965 Sex: MFINAL REPORT CT, BRAIN, WITHOUT CONTRAST CLINICAL INDICATION: Stroke, follow upL cerebellarhemispheric stroke. Follow cerebellar edema COMPARISON: October 29, 2021 TECHNIQUE: Noncontrast axial CT imaging of the brain and skull. DOSE REDUCTION: Dose modulation, iterative reconstruction, and/or weight-based adjustment of the mA/kV was utilized to reduce the radiation dose to as low as reasonably achievable. FINDINGS:Interval placement of right frontal approach ventricular catheter which terminates in the frontal horn of the right lateral ventricle. Supratentorial ventricular system is slightly increased in size compared to prior exam with concern for periventricular interstitial edema. Rede monstration of left cerebellar hemispheric infarct with increased mass effect of the posterior fossa, interval effacement of the fourth ventricle and increased superior herniation. Downward herniation persists. No hemorrhagic conversion is infarct. Orbits are within normal limits. No obstructive paranasal sinus disease. IMPRESSION: Interval placement of right frontal approach ventricular catheter which terminates in the frontal horn of the right lateral ventricle. Supratentorial ventricular system is increased in size compared to prior exam with periventricular interstitial edema. Redemonstration of left cerebellar hemispheric infarct with increased mass effect of the posterior fossa, interval effacement of the fourth ventricle and increased superior herniation. Downward herniation persists. No hemorrhagic conversion is infarct. If there is persistent clinical concern for intracranial pathology,MR examination is recommended for further characterization. Signed: Dago Brewer MDReport Verified Date/Time: 10/30/2021 14:25:42 Reading Location: [facility] C013 Neuro Reading Room [id number] 13:59:50 Test Item Value Reference Range Interpretation Comments SODIUM (BEAKER) (test code = 381) 151 meq/L 136-145 H Milk Delivery Driver ID - CHARU MBLOOD GAS, [id number] 13:45:01 Test Item Value Reference Range Interpretation Comments PH ARTERIAL (BEAKER) (test code = 7.51 7.35-7.45 H 383) PCO2 ARTERIAL (BEAKER) (test code 29 mm Hg 35-45 L = 384) PO2 ARTERIAL (BEAKER) (test code = 123 mm Hg 80-90 H 385) O2 SATURATION ARTERIAL (BEAKER) 98.7 % 96.0-97.0 H (test code = 386) HCO3 ARTERIAL (BEAKER) (test code 23 mmol/L 21-29 = 388) BASE EXCESS ARTERIAL (BEAKER) 0.6 mmol/L -2.0-3.0 (test code = 387) PATIENT TEMPERATURE (BEAKER) (test 37.0 code = 1818) FIO2 (BEAKER) (test code = 1819) 30.0 BASIC METABOLIC [id number] 05:35:27 Test Item Value Reference Range Interpretation Comments SODIUM (BEAKER) 156 meq/L 136-145 H (test code = 381) POTASSIUM (BEAKER) 3.1 meq/L 3.5-5.1 L (test code = 379) CHLORIDE (BEAKER) 123 meq/L 98-107 H (test code = 382) CO2 (BEAKER) (test 23 meq/L 22-29 code = 355) BLOOD UREA NITROGEN 12 mg/dL 7-21 (BEAKER) (test code = 354) CREATININE (BEAKER) 0.90 mg/dL 0.57-1.25 (test code = 358) GLUCOSE RANDOM 132 mg/dL 70-105 H (BEAKER) (test code = 652) CALCIUM (BEAKER) 8.1 mg/dL 8.4-10.2 L (test code = 697) EGFR (BEAKER) (test 87 mL/min/1.73 [place] GFR IS code = 1092) sq m NOT ACCURATE CREATININE CLEARANCE IN PREDICTING GLOMERULAR FILTRATION RATE . ESTIMATED GFR I S NOT APPLICABLE FOR DIALYSIS PATIEN TS. Milk Delivery Driver ID - CHARU MOperator ID - CHARU [id number] 05:32:05 Test Item Value Reference Range Interpretation Comments PHOSPHORUS (BEAKER) (test code = 2.3 mg/dL 2.3-4.7 604) Milk Delivery Driver ID - CHARU [id number] 05:32:04 Test Item Value Reference Range Interpretation Comments MAGNESIUM (BEAKER) (test code = 2.1 mg/dL 1.6-2.6 627) Milk Delivery Driver ID - CHARU MCBC W/PLT COUNT & AUTO [id number] 05:07:06 Test Item Value Reference Range Interpretation Comments WHITE BLOOD CELL COUNT (BEAKER) 12.5 K/ L 3.5-10.5 H (test code = 775) RED BLOOD CELL COUNT (BEAKER) 3.82 M/ L 4.63-6.08 L (test code = 761) HEMOGLOBIN (BEAKER) (test code = 11.9 GM/DL 13.7-17.5 L 410) HEMATOCRIT (BEAKER) (test code = 37.1 % 40.1-51.0 L 411) MEAN CORPUSCULAR VOLUME (BEAKER) 97.1 fL 79.0-92.2 H (test code = 753) MEAN CORPUSCULAR HEMOGLOBIN 31.2 pg 25.7-32.2 (BEAKER) (test code = 751) MEAN CORPUSCULAR HEMOGLOBIN CONC 32.1 GM/DL 32.3-36.5 L (BEAKER) (test code = 752) RED CELL DISTRIBUTION WIDTH 14.1 % 11.6-14.4 (BEAKER) (test code = 412) PLATELET COUNT (BEAKER) (test 290 K/CU MM 150-450 code = 756) MEAN PLATELET VOLUME (BEAKER) 11.5 fL 9.4-12.4 (test code = 754) NUCLEATED RED BLOOD CELLS 0 /100 WBC 0-0 (BEAKER) (test code = 413) NEUTROPHILS RELATIVE PERCENT 73 % (BEAKER) (test code = 429) LYMPHOCYTES RELATIVE PERCENT 16 % (BEAKER) (test code = 430) MONOCYTES RELATIVE PERCENT 10 % (BEAKER) (test code = 431) EOSINOPHILS RELATIVE PERCENT 0 % (BEAKER) (test code = 432) BASOPHILS RELATIVE PERCENT 0 % (BEAKER) (test code = 437) NEUTROPHILS ABSOLUTE COUNT 9.10 K/ L 1.78-5.38 H (BEAKER) (test code = 670) LYMPHOCYTES ABSOLUTE COUNT 2.00 K/ L 1.32-3.57 (BEAKER) (test code = 414) MONOCYTES ABSOLUTE COUNT (BEAKER) 1.24 K/ L 0.30-0.82 H (test code = 415) EOSINOPHILS ABSOLUTE COUNT 0.00 K/ L 0.04-0.54 L (BEAKER) (test code = 416) BASOPHILS ABSOLUTE COUNT (BEAKER) 0.04 K/ L 0.01-0.08 (test code = 417) IMMATURE GRANULOCYTES-RELATIVE 1 % 0-1 PERCENT (BEAKER) (test code = 2801) CALCIUM, [id number] 04:28:14 Test Item Value Reference Range Interpretation Comments CALCIUM IONIZED (BEAKER) (test 1.09 mmol/L 1.12-1.27 L code = 698) PH, BLOOD (BEAKER) (test code = 7.43 1810) BLOOD GAS, [id number] 04:27:43 Test Item Value Reference Range Interpretation Comments PH ARTERIAL (BEAKER) (test code = 7.51 7.35-7.45 H 383) PCO2 ARTERIAL (BEAKER) (test code 30 mm Hg 35-45 L = 384) PO2 ARTERIAL (BEAKER) (test code = 189 mm Hg 80-90 H 385) O2 SATURATION ARTERIAL (BEAKER) 99.4 % 96.0-97.0 H (test code = 386) HCO3 ARTERIAL (BEAKER) (test code 23 mmol/L 21-29 = 388) BASE EXCESS ARTERIAL (BEAKER) 0.8 mmol/L -2.0-3.0 (test code = 387) PATIENT TEMPERATURE (BEAKER) (test 37.0 code = 1818) FIO2 (BEAKER) (test code = 1819) 70.0 [id number] 00:34:31 Test Item Value Reference Range Interpretation Comments SODIUM (BEAKER) (test code = 381) 155 meq/L 136-145 H Milk Delivery Driver ID - BSBLOOD GAS, [id number] 21:30:27 Test Item Value Reference Range Interpretation Comments PH ARTERIAL (BEAKER) (test code = 7.49 7.35-7.45 H 383) PCO2 ARTERIAL (BEAKER) (test code 28 mm Hg 35-45 L = 384) PO2 ARTERIAL (BEAKER) (test code 188 mm Hg 80-90 H = 385) O2 SATURATION ARTERIAL (BEAKER) 99.4 % 96.0-97.0 H (test code = 386) HCO3 ARTERIAL (BEAKER) (test code 21 mmol/L 21-29 = 388) BASE EXCESS ARTERIAL (BEAKER) -1.7 mmol/L -2.0-3.0 (test code = 387) PATIENT TEMPERATURE (BEAKER) 37.0 (test code = 1818) FIO2 (BEAKER) (test code = 1819) 100.0 RAD, CHEST, 1 VIEW, NON [id number] 21:22:00Reason for exam:- >DesaturationShould this be performed at the bedside?->Yes [facility] : 1965 Sex: MFINAL REPORT EXAM/TECHNIQUE: Single view frontal radiograph of the chest. INDICATION: Desaturation. COMPARISON: Chest radiography from 10/28/2021 FINDINGS: Devices/Objects: Similar right internal jugular central venous catheter. Lungs: Increased hazy opacities. No large pleural effusion. No visible pneumothorax. Heart/Mediastinum: Similar cardiac silhouette with increased interstitial thickening. Osseous: No acute osseous process. No suspicious osseous lesion. Upper abdomen: Unremarkable. Impression: Increased findings of pulmonary edema. Signed: Seng Chau MDReport Verified Date/Time: 10/29/2021 21:22:46 [id number] 17:28:41 Test Item Value Reference Range Interpretation Comments PHOSPHORUS (BEAKER) (test code = 1.5 mg/dL 2.3-4.7 LL 604) Milk Delivery Driver ID - [id number] 17:25:04 Test Item Value Reference Range Interpretation Comments SODIUM (BEAKER) (test code = 381) 152 meq/L 136-145 H Milk Delivery Driver ID - [id number] 11:49:31 Test Item Value Reference Range Interpretation Comments SODIUM (BEAKER) (test code = 381) 152 meq/L 136-145 H Milk Delivery Driver ID - CHARU [id number] 11:49:30 Test Item Value Reference Range Interpretation Comments POTASSIUM (BEAKER) (test code = 4.0 meq/L 3.5-5.1 379) Milk Delivery Driver ID - CHARU MCT, BRAIN, WITHOUT [id number] 09:25:00Unlisted Reason for Exam - Click Yes and Enter Reason Below->YesUnlisted Reason for Exam->L cerebellar hemispheric stroke. Follow cerebellar edema [facility] : 1965 Sex: MFINAL REPORT CT, BRAIN, WITHOUT CONTRAST CLINICAL INDICATION: Unlisted Reason for ExamL cerebellar hemispheric stroke. Follow cerebellar edema COMPARISON: October 18, 2021 TECHNIQUE: Noncontrast axial CT imaging of the brain and skull. DOSE REDUCTION: Dose modulation, iterative reconstruction, and/or weight-based adjustment of the mA/kV was utilized to reduce the radiation dose to as low asreasonably achievable. FINDINGS:Evolving left cerebellar hemispheric infarct with increased crowdingof the posterior fossa and increased effacement of the fourth ventricle. Mild supratentorial hydrocephalus persists without periventricular interstitial edema. There is persistent superior herniation. No hemorrhagic conversion of infarct. Orbits are within normal limits. No obstructive paranasal sinusdisease. IMPRESSION:Evolving left cerebellar hemispheric infarct without hemorrhagic transformation.There is increased crowding within the posterior fossa and increased crowding of the fourth ventricle with mild supratentorial hydrocephalus. No periventricular interstitial edema. Mild superior herniation process. If there is persistent clinical concern for intracranial pathology, MR examination is recommended for further characterization. Signed: Dago Brewer MDReport Verified Date/Time: 10/29/2021 09:25:55 Reading Location: [address] Neuro Reading Room CBC W/PLT COUNT & AUTO [id number] 06:37:02 Test Item Value Reference Range Interpretation Comments WHITE BLOOD CELL COUNT (BEAKER) 11.4 K/ L 3.5-10.5 H (test code = 775) RED BLOOD CELL COUNT (BEAKER) 3.98 M/ L 4.63-6.08 L (test code = 761) HEMOGLOBIN (BEAKER) (test code = 12.4 GM/DL 13.7-17.5 L 410) HEMATOCRIT (BEAKER) (test code = 38.5 % 40.1-51.0 L 411) MEAN CORPUSCULAR VOLUME (BEAKER) 96.7 fL 79.0-92.2 H (test code = 753) MEAN CORPUSCULAR HEMOGLOBIN 31.2 pg 25.7-32.2 (BEAKER) (test code = 751) MEAN CORPUSCULAR HEMOGLOBIN CONC 32.2 GM/DL 32.3-36.5 L (BEAKER) (test code = 752) RED CELL DISTRIBUTION WIDTH 13.7 % 11.6-14.4 (BEAKER) (test code = 412) PLATELET COUNT (BEAKER) (test 249 K/CU MM 150-450 code = 756) MEAN PLATELET VOLUME (BEAKER) 11.2 fL 9.4-12.4 (test code = 754) NUCLEATED RED BLOOD CELLS 0 /100 WBC 0-0 (BEAKER) (test code = 413) NEUTROPHILS RELATIVE PERCENT 77 % (BEAKER) (test code = 429) LYMPHOCYTES RELATIVE PERCENT 14 % (BEAKER) (test code = 430) MONOCYTES RELATIVE PERCENT 9 % (BEAKER) (test code = 431) EOSINOPHILS RELATIVE PERCENT 0 % (BEAKER) (test code = 432) BASOPHILS RELATIVE PERCENT 0 % (BEAKER) (test code = 437) NEUTROPHILS ABSOLUTE COUNT 8.68 K/ L 1.78-5.38 H (BEAKER) (test code = 670) LYMPHOCYTES ABSOLUTE COUNT 1.57 K/ L 1.32-3.57 (BEAKER) (test code = 414) MONOCYTES ABSOLUTE COUNT (BEAKER) 1.03 K/ L 0.30-0.82 H (test code = 415) EOSINOPHILS ABSOLUTE COUNT 0.00 K/ L 0.04-0.54 L (BEAKER) (test code = 416) BASOPHILS ABSOLUTE COUNT (BEAKER) 0.01 K/ L 0.01-0.08 (test code = 417) IMMATURE GRANULOCYTES-RELATIVE 1 % 0-1 PERCENT (BEAKER) (test code = 2801) [id number] 06:19:21 Test Item Value Reference Range Interpretation Comments PHOSPHORUS (BEAKER) (test code = 1.0 mg/dL 2.3-4.7 LL 604) Milk Delivery Driver ID - CHARU MBASIC METABOLIC [id number] 06:16:41 Test Item Value Reference Range Interpretation Comments SODIUM (BEAKER) 149 meq/L 136-145 H (test code = 381) POTASSIUM (BEAKER) 3.7 meq/L 3.5-5.1 (test code = 379) CHLORIDE (BEAKER) 121 meq/L 98-107 H (test code = 382) CO2 (BEAKER) (test 20 meq/L 22-29 L code = 355) BLOOD UREA NITROGEN 14 mg/dL 7-21 (BEAKER) (test code = 354) CREATININE (BEAKER) 0.87 mg/dL 0.57-1.25 (test code = 358) GLUCOSE RANDOM 134 mg/dL 70-105 H (BEAKER) (test code = 652) CALCIUM (BEAKER) 8.2 mg/dL 8.4-10.2 L (test code = 697) EGFR (BEAKER) (test 90 mL/min/1.73 [place] GFR IS code = 1092) sq m NOT ACCURATE CREATININE CLEARANCE IN PREDICTING GLOMERULAR FILTRATION RATE . ESTIMATED GFR I S NOT APPLICABLE FOR DIALYSIS PATIEN TS. Milk Delivery Driver ID - CHARU [id number] 06:13:27 Test Item Value Reference Range Interpretation Comments MAGNESIUM (BEAKER) (test code = 2.3 mg/dL 1.6-2.6 627) Milk Delivery Driver ID - CHARU [id number] 06:10:03 Test Item Value Reference Range Interpretation Comments PARTIAL THROMBOPLASTIN TIME 24.3 seconds 22.5-36.0 (BEAKER) (test code = 760) PROTHROMBIN [id number] 06:09:23 Test Item Value Reference Range Interpretation Comments PROTIME (BEAKER) 14.3 seconds 11.9-14.2 H (test code = 759) INR (BEAKER) (test 1.12 See_Comment [Automat ed message] code = 370) The system [employer] generated this result transmitted ref erence range: <=5.90. The reference range was not used to int erpret this result as normal/abnormal . RECOMMENDED COUMADIN/WARFARIN INR THERAPY RANGESSTANDARD DOSE: 2.0 - 3.0 Includes: PROPHYLAXIS for venous thrombosis, systemic embolization; TREATMENT for venous thrombosis and/or pulmonary embolus.HIGH RISK: Target INR is 2.5-3.5 for patients with mechanical heart valves.[id number] 00:00:38 Test Item Value Reference Range Interpretation Comments SODIUM (BEAKER) (test code = 381) 149 meq/L 136-145 H Milk Delivery Driver ID - BSPOCT-GLUCOSE [id number] 17:01:37 Test Item Value Reference Range Interpretation Comments POC-GLUCOSE METER 129 mg/dL 70-110 H : Notified RN/MD: (HEATHER) (test code = TESTED AT [facility] [id number]) VERONICA [facility], [address]: Milk Delivery Driver/Techni jose ID = [id number] for LL OYD, TIKEYA [id number] 16:46:50 Test Item Value Reference Range Interpretation Comments SODIUM (BEAKER) (test code = 381) 148 meq/L 136-145 H Milk Delivery Driver ID - [id number] 16:46:49 Test Item Value Reference Range Interpretation Comments MAGNESIUM (BEAKER) (test code = 2.5 mg/dL 1.6-2.6 627) Milk Delivery Driver ID - [id number] 16:46:49 Test Item Value Reference Range Interpretation Comments POTASSIUM (BEAKER) (test code = 3.9 meq/L 3.5-5.1 379) Milk Delivery Driver ID - BSPOCT-GLUCOSE [id number] 12:41:50 Test Item Value Reference Range Interpretation Comments POC-GLUCOSE METER 112 mg/dL 70-110 H : TESTED A T [facility] 6720 (BEAKER) (test code = JENNIFER Constantin [facility], 1538) [address]: Milk Delivery Driver/Techni jose ID = [id number] for LL OYD, TIKEYA [id number] 11:38:34 Test Item Value Reference Range Interpretation Comments RPR SCREEN (BEAKER) (test code = Nonreactive Nonreactive 420) [id number] 10:00:22 Test Item Value Reference Range Interpretation Comments SODIUM (BEAKER) (test code = 381) 141 meq/L 136-145 Milk Delivery Driver ID - MANJIT FCT, BRAIN, WITHOUT [id number] 08:28:00Unlisted Reason for Exam - Click Yes and Enter Reason Below->YesUnlisted Reason for Exam->assess for obstructive hydrocephalus [facility] : 1965 Sex: MFINAL REPORT CT, BRAIN, WITHOUT CONTRAST CLINICAL INDICATION: Unlisted Reason for Examassess for obstructive hydrocephalus COMPARISON: None TECHNIQUE: Noncontrast axial CT imaging of the brainand skull. DOSE REDUCTION: Dose modulation, iterative reconstruction, and/or weight-based adjustmentof the mA/kV was utilized to reduce the radiation dose to as low as reasonably achievable. IMPRESSION:Infarction in the right cerebellar hemisphere resulting in edema effaces the fourth ventricle. No supratentorial hydrocephalus has occurred. There is no hemorrhagic conversion. Ischemic changes extendto the paramedian left magdalena, also without hemorrhagic conversion. RECOMMENDATION: MR examination forextent of white matter damage. Signed: JR Randolph Robert MDReport Verified Date/Time: 10/28/2021 08:28:53 Reading Location: [facility] Radiology Reading Room HEMOGLOBIN [id number] 08:06:38 Test Item Value Reference Range Interpretation Comments HEMOGLOBIN A1C (BEAKER) (test code = 6.1 % 4.3-6.1 368) T4, [id number] 06:18:29 Test Item Value Reference Range Interpretation Comments FREE T4 (BEAKER) (test code = 655) 0.93 ng/dL 0.70-1.48 Milk Delivery Driver ID - ROXIE WTSH/FREE T4 IF [id number] 04:55:11 Test Item Value Reference Range Interpretation Comments THYROID STIMULATING HORMONE 0.328 uIU/mL 0.350-4.940 L (BEAKER) (test code = 772) Milk Delivery Driver ID - ROXIE WFOLATE, [id number] 04:52:50 Test Item Value Reference Range Interpretation Comments FOLATE (BEAKER) 15.90 ng/mL See_Comment [Automated message] (test code = 362) The system which generated this result transmitted ref erence range: >=7.00. The reference range was not used to interpr et this result as normal/abnormal . Milk Delivery Driver ID - ROXIE [id number] 04:52:50 Test Item Value Reference Range Interpretation Comments HOMOCYSTEINE (BEAKER) (test code = 4.6 umol/L 5.1-15.4 L 642) Milk Delivery Driver ID - ROXIE WVITAMIN [id number] 04:52:49 Test Item Value Reference Range Interpretation Comments VITAMIN B12 (BEAKER) (test code = 515 pg/mL 213-816 774) Milk Delivery Driver ID Campos FAUSTIN WHEPATIC FUNCTION [id number] 04:21:20 Test Item Value Reference Range Interpretation Comments TOTAL PROTEIN (BEAKER) (test code = 6.7 gm/dL 6.0-8.3 770) ALBUMIN (BEAKER) (test code = 1145) 4.1 g/dL 3.5-5.0 BILIRUBIN TOTAL (BEAKER) (test code 0.8 mg/dL 0.2-1.2 = 377) BILIRUBIN DIRECT (BEAKER) (test 0.3 mg/dL 0.1-0.5 code = 706) ALKALINE PHOSPHATASE (BEAKER) (test 46 U/L 40-150 code = 346) AST (SGOT) (BEAKER) (test code = 20 U/L 5-34 353) ALT (SGPT) (BEAKER) (test code = 40 U/L 6-55 347) Milk Delivery Driver ID - ROXIE WC-REACTIVE [id number] 04:21:20 Test Item Value Reference Range Interpretation Comments C-REACTIVE PROTEIN (BEAKER) (test 0.58 mg/dL 0.00-0.50 H code = 676) Milk Delivery Driver ID - ROXIE WLIPID [id number] 04:21:19 Test Item Value Reference Range Interpretation Comments TRIGLYCERIDES (BEAKER) (test code = 95 mg/dL 540) CHOLESTEROL (BEAKER) (test code = 151 mg/dL 631) HDL CHOLESTEROL (BEAKER) (test code 46 mg/dL = 976) LDL CHOLESTEROL CALCULATED (BEAKER) 86 mg/dL (test code = 633) Triglyceride Reference Range: Low Risk <150 Borderline 150-199 High Risk 200- 499 Very High Risk >=500Cholesterol Reference Range: Low Risk <200 Borderline 200-239 High Risk >240HDL Cholesterol Reference Range: Low Risk >=60 High Risk <40LDL Cholesterol Reference Range: Optimal <100 Near Optimal 100-129 Borderline 130-159 High 160-189 Very High >=190 Milk Delivery Driver ID Campos FAUSTIN [id number] 04:21:18 Test Item Value Reference Range Interpretation Comments MAGNESIUM (BEAKER) (test code = 1.8 mg/dL 1.6-2.6 627) Milk Delivery Driver ID Campos FAUSTIN [id number] 04:21:18 Test Item Value Reference Range Interpretation Comments PHOSPHORUS (BEAKER) (test code = 2.9 mg/dL 2.3-4.7 604) Milk Delivery Driver ID - ROXIE WBASIC METABOLIC [id number] 04:21:17 Test Item Value Reference Range Interpretation Comments SODIUM (BEAKER) 140 meq/L 136-145 (test code = 381) POTASSIUM (BEAKER) 3.8 meq/L 3.5-5.1 (test code = 379) CHLORIDE (BEAKER) 107 meq/L 98-107 (test code = 382) CO2 (BEAKER) (test 23 meq/L 22-29 code = 355) BLOOD UREA NITROGEN 13 mg/dL 7-21 (BEAKER) (test code = 354) CREATININE (BEAKER) 0.82 mg/dL 0.57-1.25 (test code = 358) GLUCOSE RANDOM 139 mg/dL 70-105 H (BEAKER) (test code = 652) CALCIUM (BEAKER) 9.1 mg/dL 8.4-10.2 (test code = 697) EGFR (BEAKER) (test 96 mL/min/1.73 [place] GFR IS code = 1092) sq m NOT ACCURATE CREATININE CLEARANCE IN PREDICTING GLOMERULAR FILTRATION RATE . ESTIMATED GFR I S NOT APPLICABLE FOR DIALYSIS PATIEN TS. Milk Delivery Driver ID Campos FAUSTIN WCBC W/PLT COUNT & AUTO [id number] 04:03:58 Test Item Value Reference Range Interpretation Comments WHITE BLOOD CELL COUNT (BEAKER) 14.4 K/ L 3.5-10.5 H (test code = 775) RED BLOOD CELL COUNT (BEAKER) 4.46 M/ L 4.63-6.08 L (test code = 761) HEMOGLOBIN (BEAKER) (test code = 13.7 GM/DL 13.7-17.5 410) HEMATOCRIT (BEAKER) (test code = 42.4 % 40.1-51.0 411) MEAN CORPUSCULAR VOLUME (BEAKER) 95.1 fL 79.0-92.2 H (test code = 753) MEAN CORPUSCULAR HEMOGLOBIN 30.7 pg 25.7-32.2 (BEAKER) (test code = 751) MEAN CORPUSCULAR HEMOGLOBIN CONC 32.3 GM/DL 32.3-36.5 (BEAKER) (test code = 752) RED CELL DISTRIBUTION WIDTH 13.5 % 11.6-14.4 (BEAKER) (test code = 412) PLATELET COUNT (BEAKER) (test 274 K/CU MM 150-450 code = 756) MEAN PLATELET VOLUME (BEAKER) 11.0 fL 9.4-12.4 (test code = 754) NUCLEATED RED BLOOD CELLS 0 /100 WBC 0-0 (BEAKER) (test code = 413) NEUTROPHILS RELATIVE PERCENT 84 % (BEAKER) (test code = 429) LYMPHOCYTES RELATIVE PERCENT 10 % (BEAKER) (test code = 430) MONOCYTES RELATIVE PERCENT 6 % (BEAKER) (test code = 431) EOSINOPHILS RELATIVE PERCENT 0 % (BEAKER) (test code = 432) BASOPHILS RELATIVE PERCENT 0 % (BEAKER) (test code = 437) NEUTROPHILS ABSOLUTE COUNT 12.13 K/ L 1.78-5.38 H (BEAKER) (test code = 670) LYMPHOCYTES ABSOLUTE COUNT 1.37 K/ L 1.32-3.57 (BEAKER) (test code = 414) MONOCYTES ABSOLUTE COUNT (BEAKER) 0.82 K/ L 0.30-0.82 (test code = 415) EOSINOPHILS ABSOLUTE COUNT 0.00 K/ L 0.04-0.54 L (BEAKER) (test code = 416) BASOPHILS ABSOLUTE COUNT (BEAKER) 0.02 K/ L 0.01-0.08 (test code = 417) IMMATURE GRANULOCYTES-RELATIVE 1 % 0-1 PERCENT (BEAKER) (test code = 280) [id number] 03:57:29 Test Item Value Reference Range Interpretation Comments PARTIAL THROMBOPLASTIN TIME 23.7 seconds 22.5-36.0 (BEAKER) (test code = 760) PROTHROMBIN [id number] 03:56:47 Test Item Value Reference Range Interpretation Comments PROTIME (BEAKER) 13.4 seconds 11.9-14.2 (test code = 759) INR (BEAKER) (test 1.04 See_Comment [Automat ed message] code = 370) The system [employer] generated this result transmitted ref erence range: <=5.90. The reference range was not used to int erpret this result as normal/abnormal . RECOMMENDED COUMADIN/WARFARIN INR THERAPY RANGESSTANDARD DOSE: 2.0 - 3.0 Includes: PROPHYLAXIS for venous thrombosis, systemic embolization; TREATMENT for venous thrombosis and/or pulmonary embolus.HIGH RISK: Target INR is 2.5-3.5 for patients with mechanical heart valves.RAD, CHEST, 1 VIEW, NON [id number] 02:13:00Reason for exam:->CENTRAL LINE PLACEMENTShould this be performed at the bedside?->Yes [facility] : 1965 Sex: MFINAL REPORT RAD, CHEST, 1 VIEW, NON DEPT INDICATION: CENTRAL LINE PLACEMENT COMPARISON: Exam from four hours prior FINDINGS: Portable frontal view of the chest. IMPRESSION: Support Lines: Theright transjugular central venous catheter terminates in the SVC. Lungs and pleura: Lungs are clear.No effusion. No pneumothorax. Heart and mediastinum: Stable contours. Additional findings: None. Signed: Bijan [place] Verified Date/Time: 10/28/2021 02:13:15 -COV2/RT-PCR ([facility])2021-10-28 01:16:28 Test Item Value Reference Range Interpretation Comments SARS-COV2/RT-PCR (test code = Negative Negative [id number]) Negative result for this test determines that SARS-CoV-2 RNA was not present in the specimen above the Limit of Detection (LOD). However, Negative results do not preclude SARS-CoV-2 infection and should not be used as the sole basis for treatment or patient management decisions. Negative results must be combined with clinical observations, patient history, and epidemiological information. A false negative result may occur if a specimen is improperly collected, transported, or handled. A false negative result should be considered if patient's recent exposures or clinical presentation indicate that COVID-19 (SARS-CoV-2) is likely and diagnostic tests for other causes of illness are negative. Re-testing should be considered in cases of suspected false negatives.The limit of detection for this assay is 100 copies/mL.This SARS-CoV-2 test is a real-time RT_PCR test intended for the qualitative detection of nucleic acid from SARS-CoV-2 in a nasopharyngeal swab specimen collected from individuals suspected of COVID-19 by their healthcare provider.This test has not been Food and Drug Administration (FDA) cleared or approved. This is a modified version of an approved Emergency Use Authorization (EUA) and is in the process of review by the FDA. Once authorized by the FDA, the issued EUA will be effective until the declaration that circumstances exist justifying the authorization of the emergency use of in vitro diagnostic tests for detection and/or diagnosis of COVID-19 is terminated under Section 564(b)(2) of the Act or the EUA is revoked under Section 564(g) of the Act.Testing was performed using [employer] SARS-CoV-2 assay.Fact Sheet for Healthcare Providers:[email or web address] SARS-CoV-2 HCP Fact Sheet 51- [id number].pdfFact Sheet for Healthcare Patients:[email or web address] SARS-[email or web address] Patient Fact Sheet EN 51-045300B3.pdfHIGH SENSITIVITY TROPONIN I 2021-10-27 22:32:18 Test Item Value Reference Range Interpretation Comments HIGH SENSITIVITY < pg/ml See_Comment [Automated message] TROPONIN I (test code = The system which [id number]) generated this result transmitted ref erence range: <=35. Th e reference range was not used to interpr et this result as normal/abnormal . Milk Delivery Driver ID - [id number] ORTHO/PROSTHETIC AIDE STAT High Sensitivity Troponin-I results should be used in conjunction with other diagnostic information such as ECG, clinical observations and information, and patientsymptoms to aid in the diagnosis of AL. COMPREHENSIVE METABOLIC [id number] 21:24:07 Test Item Value Reference Range Interpretation Comments TOTAL PROTEIN 7.2 gm/dL 6.0-8.3 (BEAKER) (test code = 770) ALBUMIN (BEAKER) 4.3 g/dL 3.5-5.0 (test code = 1145) ALKALINE PHOSPHATASE 50 U/L 40-150 (BEAKER) (test code = 346) BILIRUBIN TOTAL 0.6 mg/dL 0.2-1.2 (BEAKER) (test code = 377) SODIUM (BEAKER) (test 141 meq/L 136-145 code = 381) POTASSIUM (BEAKER) 3.9 meq/L 3.5-5.1 (test code = 379) CHLORIDE (BEAKER) 107 meq/L 98-107 (test code = 382) CO2 (BEAKER) (test 21 meq/L 22-29 L code = 355) BLOOD UREA NITROGEN 13 mg/dL 7-21 (BEAKER) (test code = 354) CREATININE (BEAKER) 0.76 mg/dL 0.57-1.25 (test code = 358) GLUCOSE RANDOM 135 mg/dL 70-105 H (BEAKER) (test code = 652) CALCIUM (BEAKER) 9.4 mg/dL 8.4-10.2 (test code = 697) AST (SGOT) (BEAKER) 23 U/L 5-34 (test code = 353) ALT (SGPT) (BEAKER) 46 U/L 6-55 (test code = 347) EGFR (BEAKER) (test 105 ESTIMATE D GFR IS code = 1092) mL/min/1.73 sq NOT ACCURA TE m CREATININE CLEARANCE IN PREDICTING GLOMERULAR FILTRATION RATE . ESTIMATED GFR I S NOT APPLICABLE FOR DIALYSIS PATIEN TS. Milk Delivery Driver ID - [id number] 21:18:06 Test Item Value Reference Range Interpretation Comments PROTIME (BEAKER) (test 12.6 seconds 11.9-14.2 code = 759) INR (BEAKER) (test 0.96 See_Comment [Automat ed code = 370) message] The sy stem which generated this result transmitted reference range : <=5.90. The reference range was not used to interpret this result as normal/abnormal . PARTIAL THROMBOPLASTIN 25.0 seconds 22.5-36.0 TIME (BEAKER) (test code = 760) RECOMMENDED COUMADIN/WARFARIN INR THERAPY RANGESSTANDARD DOSE: 2.0 - 3.0 Includes: PROPHYLAXIS for venous thrombosis, systemic embolization; TREATMENT for venous thrombosis and/or pulmonary embolus.HIGH RISK: Target INR is 2.5-3.5 for patients with mechanical heart valves.CBC W/PLT COUNT & AUTO [id number] 21:13:54 Test Item Value Reference Range Interpretation Comments WHITE BLOOD CELL COUNT (BEAKER) 14.3 K/ L 3.5-10.5 H (test code = 775) RED BLOOD CELL COUNT (BEAKER) 4.64 M/ L 4.63-6.08 (test code = 761) HEMOGLOBIN (BEAKER) (test code = 14.5 GM/DL 13.7-17.5 410) HEMATOCRIT (BEAKER) (test code = 42.7 % 40.1-51.0 411) MEAN CORPUSCULAR VOLUME (BEAKER) 92.0 fL 79.0-92.2 (test code = 753) MEAN CORPUSCULAR HEMOGLOBIN 31.3 pg 25.7-32.2 (BEAKER) (test code = 751) MEAN CORPUSCULAR HEMOGLOBIN CONC 34.0 GM/DL 32.3-36.5 (BEAKER) (test code = 752) RED CELL DISTRIBUTION WIDTH 13.5 % 11.6-14.4 (BEAKER) (test code = 412) PLATELET COUNT (BEAKER) (test 297 K/CU MM 150-450 code = 756) MEAN PLATELET VOLUME (BEAKER) 11.1 fL 9.4-12.4 (test code = 754) NUCLEATED RED BLOOD CELLS 0 /100 WBC 0-0 (BEAKER) (test code = 413) NEUTROPHILS RELATIVE PERCENT 87 % (BEAKER) (test code = 429) LYMPHOCYTES RELATIVE PERCENT 8 % (BEAKER) (test code = 430) MONOCYTES RELATIVE PERCENT 4 % (BEAKER) (test code = 431) EOSINOPHILS RELATIVE PERCENT 0 % (BEAKER) (test code = 432) BASOPHILS RELATIVE PERCENT 0 % (BEAKER) (test code = 437) NEUTROPHILS ABSOLUTE COUNT 12.47 K/ L 1.78-5.38 H (BEAKER) (test code = 670) LYMPHOCYTES ABSOLUTE COUNT 1.18 K/ L 1.32-3.57 L (BEAKER) (test code = 414) MONOCYTES ABSOLUTE COUNT (BEAKER) 0.57 K/ L 0.30-0.82 (test code = 415) EOSINOPHILS ABSOLUTE COUNT 0.00 K/ L 0.04-0.54 L (BEAKER) (test code = 416) BASOPHILS ABSOLUTE COUNT (BEAKER) 0.02 K/ L 0.01-0.08 (test code = 417) IMMATURE GRANULOCYTES-RELATIVE 0 % 0-1 PERCENT (BEAKER) (test code = 2801) RAD, CHEST, 1 VIEW, NON [id number] 20:58:00Reason for exam:->preopShould this be performed at the bedside?->Yes [facility] : 1965 Sex: MFINAL REPORT Exam: RAD, CHEST, 1 VIEW, NON DEPTDate: 10/27/2021 8:57 PM Indication: Preoperative Comparison: None FINDINGS: Lines/Tubes:EKG leads overlie the chest. Lungs:The lungs are moderately inflated. There is perihilar fullness and indistinctness of the pulmonary vasculature. Pleura:Nopleural effusion. No pneumothorax. Heart/Mediastinum:The cardiomediastinal silhouette is normal in size and contour. Bones/Soft Tissues: No acute osseous injury. Abdomen: No free air below the diaphragm. IMPRESSION:Central pulmonary vascular congestion. No focal pneumonia or airspace edema. Signed: Manolo Harvey Verified Date/Time: 10/27/2021 20:58:14 Reading Location: [facility] B1 C013T Transitional Reading Room MR, BRAIN, WITHOUT [id number] 20:46:00Unlisted Reason for Exam - Click Yes and Enter Reason Below->No [facility] : 1965 Sex: MFINAL REPORT MR, MRA, NECK, WITHOUT IV CONTRAST, MR, BRAIN, WITHOUT CONTRAST, MR, MRA, BRAIN, WITHOUT CONTRAST INDICATION: Neuro deficit, acute, stroke suspectedIschemic Stroke Evaluation TECHNIQUE: Multiplanar, multisequence MR imaging of the brain without intravenous contrast.MRA of the head utilizing 3-D abgr-dt-ysykij technique, with 3-D reconstructions.MRA of the neck utilizing 2-D and 3-D jyyi-hd-dhkons technique, with 3-D reconstructions. COMPARISON: None FINDINGS: MRI Brain:Intracranial: There is restricted diffusion and FLAIR hyperintensity throughout the left cerebellar hemisphere consistent with acute infarct. There is also a small focus of restricted diffusion within the left h emipons. Edema causes mild compression of the fourth ventricle and left posterior brainstem. No upstream hydrocephalus. No intracranial hemorrhage. Sinuses: No evidence of sinusitis. Mastoids are clear. Orbits: Globes are intact. Calvarium \T\ scalp: Unremarkable. MRA Head:Intracranial left vertebral artery is occluded. The basilar artery and bilateral pewter finisher are patent. Anterior circulation is unremarkable. MRA Neck:The carotid arteries in the neck are patent including their bifurcations. Distal leftV3 segment is occluded. Right vertebral artery is of normal course and caliber. 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 The findings were discussed with the stroke neurology resident on 10/27/2021 8:46 PM. Signed: Jus Le Verified Date/Time: 10/27/2021 20:46:18 MR, MRA, BRAIN, WITHOUT CONTRAST 2021-10-27 20:46:00Reason for exam:->Ischemic Stroke Evaluation [facility] 1965 Sex: MFINAL REPORT MR, MRA, NECK, WITHOUT IV CONTRAST, MR, BRAIN, WITHOUT CONTRAST, MR, MRA, BRAIN, WITHOUT CONTRAST INDICATION: Neuro deficit, acute, stroke suspectedIschemic Stroke Evaluation TECHNIQUE: Multiplanar, multisequence MR imaging of the brain without intravenous contrast.MRA of the head utilizing 3-D qgyt-oy-vfjjqa technique, with 3-D reconstructions.MRA of the neck utilizing 2-D and 3-D dlsj-fl-wzhpyf technique, with 3-D reconstructions. COMPARISON: None FINDINGS: MRI Brain:Intracranial: There is restricted diffusion and FLAIR hyperintensity throughout the left cerebellar hemisphere consistent with acute infarct. There is also a small focus of restricted diffusion within the left h emipons. Edema causes mild compression of the fourth ventricle and left posterior brainstem. No upstream hydrocephalus. No intracranial hemorrhage. Sinuses: No evidence of sinusitis. Mastoids are clear. Orbits: Globes are intact. Calvarium \T\ scalp: Unremarkable. MRA Head:Intracranial left vertebral artery is occluded. The basilar artery and bilateral pewter finisher are patent. Anterior circulation is unremarkable. MRA Neck:The carotid arteries in the neck are patent including their bifurcations. Distal leftV3 segment is occluded. Right vertebral artery is of normal course and caliber. 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 The findings were discussed with the stroke neurology resident on 10/27/2021 8:46 PM. Signed: Jus Le Verified Date/Time: 10/27/2021 20:46:18 MR, MRA, NECK, WITHOUT IV CONTRAST 2021-10-27 20:46:00Reason for exam:->Ischemic Stroke Evaluation [facility] : 1965 Sex: MFINAL REPORT MR, MRA, NECK, WITHOUT IV CONTRAST, MR, BRAIN, WITHOUT CONTRAST, MR, MRA, BRAIN, WITHOUT CONTRAST INDICATION: Neuro deficit, acute, stroke suspectedIschemic Stroke Evaluation TECHNIQUE: Multiplanar, multisequence MR imaging of the brain without intravenous contrast.MRA of the head utilizing 3-D hltr-ip-wymjpk technique, with 3-D reconstructions.MRA of the neck utilizing 2-D and 3-D zpcb-dc-yhuoiv technique, with 3-D reconstructions. COMPARISON: None FINDINGS: MRI Brain:Intracranial: There is restricted diffusion and FLAIR hyperintensity throughout the left cerebellar hemisphere consistent with acute infarct. There is also a small focus of restricted diffusion within the left h emipons. Edema causes mild compression of the fourth ventricle and left posterior brainstem. No upstream hydrocephalus. No intracranial hemorrhage. Sinuses: No evidence of sinusitis. Mastoids are clear. Orbits: Globes are intact. Calvarium \T\ scalp: Unremarkable. MRA Head:Intracranial left vertebral artery is occluded. The basilar artery and bilateral pewter finisher are patent. Anterior circulation is unremarkable. MRA Neck:The carotid arteries in the neck are patent including their bifurcations. Distal leftV3 segment is occluded. Right vertebral artery is of normal course and caliber.
[2022-07-18 19:08] LABS: Urine Blood 2+ (Negative); Urine Glucose Negative (Negative); Urine Protein Negative (Negative); Urine Specific Gravity 1.025 (1.005-1.030); Urine pH 5.5 (5.0-7.0)
[2022-07-18 19:38] LABS: Absolute Lymphocytes (CBC) 1.2 K/uL (0.7-4.9); Hematocrit 41.6 % (39.6-49.0); Lymphocytes % 9.7 % (15.3-44.8); MCV 90.9 fL (80-100); MPV 9.3 fL (7.6-11.3); RBC Red Blood Cell Count 4.58 M/uL (4.33-5.43)
[2022-07-18 20:03] LABS: Albumin 3.9 g/dL (3.4-5.0); Bilirubin Total 0.8 mg/dL (0.2-1.0); Potassium 4.1 mmol/L (3.5-5.1); Protein, Total 7.4 g/dL (6.4-8.2)
[2022-07-18 20:06] LABS: Urine Bacteria <20 /HPF (<20)
[2022-07-18 20:07] LABS: Urine Mucus 2+ /HPF (None Seen)
[2022-07-18] MEDS ORDERED: MORPHINE 4 MG/ML SYR ONE (20:15)
[2022-07-18] MEDS ORDERED: ONDANSETRON 4 MG/2 ML VIAL ONE (20:15)
[2022-07-18] MEDS ORDERED: NA CHLORIDE 0.9% 1,000 ML ONE (20:22)
[2022-07-18] MEDS ORDERED: FAMOTIDINE 20 MG/2 ML VIAL IV ONE (20:22)
--- NOTE | 2022-07-18 20:48 | RAD REPORT ---
EXAM DESCRIPTION: CT - Stone Protocol - 07/18/2022 8:33 pm CLINICAL HISTORY: urinary retention COMPARISON: <Comparisons> TECHNIQUE: Axial 3 mm thick images were obtained without oral or IV contrast. The vgccs-gv-ayaf span s the entirety of the system including uppermost abdomen and lung bases. All CT scans are performed using dose optimization technique as appropriate and may include automated exposure control or mA/KV adjustment according to patient size. FINDINGS: Mild bilateral hydronephrosis is present. There are no obstructing or nonobstructing calcu li present. Kidneys appear edematous with perinephric stranding present. No suspicious renal masses. Isodense masses and pyelonephritis are not excluded on a stone protocol CT scan. No significant adren al finding. Urinary bladder is fully contracted around a García catheter. An enlarged lobulated prosta te gland is present. Move Imaged portions of the liver, spleen and pancreas show no suspicious findings on non-contrast imaging . Liver attenuation is fatty infiltrated. No gallbladder or biliary tree abnormality identified. No suspicious bowel findings. No appendicitis. No mass or bulky lymphadenopathy. Small to moderate-sized fat filled right inguinal hernia present. N o free air, free fluid or pneumatosis. No significant bony abnormality. IMPRESSION: Enlarged lobulated prostate gland is present. Urinary bladder is fully contracted around a García catheter. Mild bilateral hydronephrosis is present with perinephric stranding. No obstructing calculus. Hydrone phrosis may be due to prostatic urethral outlet obstruction. Isodense masses and pyelonephritis are not excluded on stone protocol technique. Fatty infiltration of the liver.
--- NOTE | 2022-07-18 21:00 | ER ---
Nurse's Notes [facility] Name: Rashid Sim Age: 56 yrs Sex: Male : 1965 Arrival Date: 07/18/2022 Time: 18:25 Bed 16 Private MD: Diagnosis: Other retention of urine;Acute prostatitis Presentation: 07/18 18:51 Chief complaint: Patient states: I started having pressure in pelvis and difficult bm7 urinating and the pain is going to my back so I wanted to make sure I dont have a kidney infection. Coronavirus screen: At this time, the client does not indicate any symptoms associated with coronavirus-19. Ebola Screen: No symptoms or risks identified at this time. Initial Sepsis Screen: Does the patient meet any 2 criteria? No. Patient's initial sepsis screen is negative. Does the patient have a suspected source of infection? No. Patient's initial sepsis screen is negative. Risk Assessment: Do you want to hurt yourself or someone else? Patient reports no desire to harm self or others. Onset of symptoms was July 17, 2022. Care prior to arrival: None. 18:51 Method Of Arrival: Ambulatory bm7 18:51 Acuity: YUNI 3 bm7 Triage Assessment: 18:53 General: Appears in no apparent distress. uncomfortable, well groomed, well developed, bm7 Behavior is calm, cooperative, appropriate for age. Pain: Complains of pain in pelvis Pain radiates to back Pain currently is 8 out of 10 on a pain scale. EENT: No deficits noted. No signs and/or symptoms were reported regarding the EENT system. Neuro: No deficits noted. Cardiovascular: No deficits noted. Respiratory: No deficits noted. GI: No deficits noted. No signs and/or symptoms were reported involving the gastrointestinal system. : Reports burning with urination, cramping, inability to void, pain urgency, urinary frequency. Derm: No deficits noted. No signs and/or symptoms reported regarding the dermatologic system. Musculoskeletal: No deficits noted. No signs and/or symptoms reported regarding the musculoskeletal system. Historical: - Allergies: 18:53 No Known Allergies; bm7 - Home Meds: 18:53 atorvastatin 40 mg Oral tab 1 tab once daily [Active]; folic acid 1 mg Oral tab 1 tab bm7 once daily [Active]; losartan 25 mg Oral tab 0.5 tab once daily [Active]; Plavix 75 mg Oral tab 1 tab once daily [Active]; - PMHx: 18:53 CVA; Hypertensive disorder; rectal fistula; bm7 - PSHx: 18:53 None; bm7 - Immunization history:: Adult Immunizations up to date, Client reports having NOT received the Covid vaccine. - Social history:: Smoking status: Patient reports use of chewing tobacco. Patient uses alcohol, on a daily basis. pt states he drinks a beer daily . - Family history:: not pertinent. Screenin:10 Abuse screen: Denies threats or abuse. Nutritional screening: No deficits noted. bm7 Tuberculosis screening: No symptoms or risk factors identified. Fall Risk None identified. Assessment: 18:55 Reassessment: No changes from previously documented assessment. bm7 19:10 Reassessment: PA at bedside to assess. bm7 20:28 Reassessment: Patient and/or family updated on plan of care and expected duration. Pain bm7 level reassessed. Patient is alert, oriented x 3, equal unlabored respirations, skin warm/dry/pink. Patient states feeling better. Patient states symptoms have improved. Vital Signs: 18:51 BP 159 / 77; Pulse 82; Resp 16; Temp 98.3(TE); Pulse Ox 100% on R/A; Weight 97.07 kg bm7 (R); Height 5 ft. 9 in. (175.26 cm); Pain 8/10; 20:28 BP 122 / 76; Pulse 72; Resp 16; Pulse Ox 100% on R/A; Pain 3/10; bm7 21:35 BP 118 / 72; Pulse 66; Resp 16; Pulse Ox 99% ; Pain 1/10; bm7 18:51 Body Mass Index 31.60 (97.07 kg, 175.26 cm) bm7 ED Course: 18:25 Patient arrived in ED. as 18:36 Lui Trinh PA is PHCP. cp 18:36 Holley Nice MD is Attending Physician. cp 18:45 Sherri Dietrich, ROSEANN is Primary Nurse. bm7 18:53 Triage completed. bm7 18:53 Arm band placed on right wrist. Urine obtained. bm7 19:09 No apparent distress. Resting quietly. Awaiting lab results. bm7 19:09 Patient has correct armband on for positive identification. Placed in gown. Bed in low bm7 position. Call light in reach. Side rails up X 1. Adult w/ patient. Client placed on continuous cardiac and pulse oximetry monitoring. NIBP monitoring applied. Warm blanket given. Assisted to bathroom. 19:09 Initial lab(s) drawn, by me, sent to lab. Urine collected: clean catch specimen, clear, bm7 Amount Voided: 100mL. Inserted saline lock: 20 gauge in left antecubital area, using aseptic technique. Blood collected. Patient maintains SpO2 saturation greater than 95% on room air. 19:28 Bladder scan completed. 592. bm7 20:28 García cath inserted, using sterile technique, 18 Fr., by me, balloon inflated, to bm7 gravity drainage, returned clear yellow urine. Patient tolerated well. 20:35 CT Stone Protocol In Process Unspecified. EDMS 20:58 Remington Galvan MD is Referral Physician. cp 21:01 Rick Campoverde MD is Attending Physician. cp 21:35 No provider procedures requiring assistance completed. IV discontinued, intact, bm7 bleeding controlled, No redness/swelling at site. Pressure dressing applied. Administered Medications: 20:16 Not Given (Patient Refused): morphine 4 mg IVP once over 4 mins jb4 20:16 Drug: Zofran (Ondansetron) 4 mg Route: IVP; Site: left antecubital; jb4 21:37 Follow up: Response: Nausea is decreased bm7 20:28 Drug: Pepcid (famotidine) 20 mg Route: IVP; Site: left antecubital; bm7 21:36 Follow up: Response: No adverse reaction bm7 20:46 Drug: NS 0.9% 1000 ml Route: IV; Rate: 1 bolus; Site: left antecubital; bm7 21:37 Follow up: IV Status: Completed infusion; IV Intake: 1000ml bm7 21:34 Drug: Cipro (ciprofloxacin) 500 mg Route: PO; bm7 21:36 Follow up: Response: No adverse reaction bm7 21:35 Drug: Rocephin (cefTRIAXone) 1 grams Route: IV; Rate: calculated rate; Site: left bm7 antecubital; 21:36 Follow up: IV Status: Completed infusion bm7 Medication: 19:10 VIS not applicable for this client. bm7 Intake: 21:37 IV: 1000ml; Total: 1000ml. bm7 Output: 20:30 Urine: 1000ml (García); Total: 1000ml. bm7 Outcome: 20:59 Discharge ordered by . cp 21:35 Discharged to home ambulatory, with family. bm7 21:35 Condition: improved 21:35 Discharge instructions given to patient, family, Instructed on discharge instructions, follow up and referral plans. medication usage, Demonstrated understanding of instructions, follow-up care, medications, Prescriptions given X 2. 21:37 Patient left the ED. bm7 Signatures: Dispatcher [employer] EDMS Bridgette Red Corey, PA PA cp Bryson, James, RN RN jb4 Sherri Dietrich, RN RN bm7
--- NOTE | 2022-07-18 21:00 | EDPHYS ---
Physician Documentation [facility] Name: Rashid Sim Age: 56 yrs Sex: Male : 1965 Arrival Date: 07/18/2022 Time: 18:25 Bed 16 Private MD: ED Physician Rick Campoverde HPI: 07/18 19:15 This 56 yrs old Male presents to ER via Ambulatory with complaints of Urinary Retention cp - prostate swelling. 19:15 The patient presents with urinary symptoms, unable to void. Onset: The symptoms/episode cp began/occurred yesterday. 19:15 Associated signs and symptoms: Pertinent positives: abdominal pain, lower back pain, cp Pertinent negatives: constipation, diarrhea, fever, hematuria, vomiting. Severity of symptoms: in the emergency department the symptoms are unchanged, despite home interventions. Historical: - Allergies: 18:53 No Known Allergies; bm7 - Home Meds: 18:53 atorvastatin 40 mg Oral tab 1 tab once daily [Active]; folic acid 1 mg Oral tab 1 tab bm7 once daily [Active]; losartan 25 mg Oral tab 0.5 tab once daily [Active]; Plavix 75 mg Oral tab 1 tab once daily [Active]; - PMHx: 18:53 CVA; Hypertensive disorder; rectal fistula; bm7 - PSHx: 18:53 None; bm7 - Immunization history:: Adult Immunizations up to date, Client reports having NOT received the Covid vaccine. - Social history:: Smoking status: Patient reports use of chewing tobacco. Patient uses alcohol, on a daily basis. pt states he drinks a beer daily . - Family history:: not pertinent. ROS: 19:20 Constitutional: Negative for body aches, chills, fever, poor PO intake. cp 19:20 Eyes: Negative for injury, pain, redness, and discharge. cp 19:20 Cardiovascular: Negative for chest pain, edema, palpitations. cp 19:20 Respiratory: Negative for cough, shortness of breath, wheezing. 19:20 Abdomen/GI: Positive for abdominal pain, Negative for vomiting, diarrhea, constipation. 19:20 Back: Positive for pain at rest, pain with movement, of the low back area. cp 19:20 : Positive for difficulty urinating. 19:20 Neuro: Negative for altered mental status, headache, weakness. 19:20 All other systems are negative. Exam: 19:25 Constitutional: The patient appears in no acute distress, alert, awake, cp non-diaphoretic, non-toxic, well developed, well nourished, uncomfortable. 19:25 Head/Face: Normocephalic, atraumatic. cp 19:25 Eyes: Periorbital structures: appear normal, Conjunctiva: normal, no exudate, no injection, Sclera: no appreciated abnormality, Lids and lashes: appear normal, bilaterally. 19:25 ENT: External ear(s): are unremarkable, Nose: is normal, Mouth: Lips: moist, Oral mucosa: pink and intact, moist, Posterior pharynx: Airway: no evidence of obstruction, patent. 19:25 Chest/axilla: Inspection: normal, Palpation: is normal, no crepitus, no tenderness. 19:25 Cardiovascular: Rate: normal, Rhythm: regular, Edema: is not appreciated, JVD: is not appreciated. 19:25 Respiratory: the patient does not display signs of respiratory distress, Respirations: normal, no use of accessory muscles, no retractions, labored breathing, is not present, Breath sounds: are clear throughout, no decreased breath sounds, no stridor, no wheezing. 19:25 Abdomen/GI: Inspection: distension, that is moderate, in the suprapubic area, Bowel sounds: active, all quadrants, Palpation: soft, in all quadrants, severe abdominal tenderness, in the right lower quadrant and left lower quadrant, rebound tenderness, is not appreciated, voluntary guarding, is elicited in the right lower quadrant and left lower quadrant. 19:25 Back: pain, of the low back area. 19:25 Skin: cellulitis, is not appreciated, no rash present. 19:25 Neuro: Orientation: to person, place \T\ time. Mentation: is normal. Vital Signs: 18:51 BP 159 / 77; Pulse 82; Resp 16; Temp 98.3(TE); Pulse Ox 100% on R/A; Weight 97.07 kg bm7 (R); Height 5 ft. 9 in. (175.26 cm); Pain 8/10; 20:28 BP 122 / 76; Pulse 72; Resp 16; Pulse Ox 100% on R/A; Pain 3/10; bm7 21:35 BP 118 / 72; Pulse 66; Resp 16; Pulse Ox 99% ; Pain 1/10; bm7 18:51 Body Mass Index 31.60 (97.07 kg, 175.26 cm) bm7 MDM: 18:43 Patient medically screened. cp 20:59 Data reviewed: vital signs, nurses notes, lab test result(s), radiologic studies, CT cp scan. 20:59 Differential diagnosis: nonspecific abdominal pain, urinary retention, prostatitis. cp Counseling: I had a detailed discussion with the patient and/or guardian regarding: the historical points, exam findings, and any diagnostic results supporting the discharge/admit diagnosis, lab results, radiology results, the need for outpatient follow up, for definitive care, a urologist, to return to the emergency department if symptoms worsen or persist or if there are any questions or concerns that arise at home. Response to treatment: the patient's symptoms have markedly improved after treatment, and as a result, I will discharge patient. ED course: García catheter placed and over 1000 mL urine observed in bag. Will discharge to home for continued monitoring. 07/18 19:08 Order name: Urine Dipstick-Ancillary; Complete Time: 19:14 EDAK 07/18 19:14 Interpretation: UKET 2+; UBLD 2+; UESTR Trace; Reviewed. 07/18 19:15 Order name: CBC with Diff; Complete Time: 20:07 07/18 20:07 Interpretation: Normal except: WBC 12.70; ELROY% 85.1; LYM% 9.7; NEUT A 10.8. 07/18 19:15 Order name: CMP; Complete Time: 20:07 07/18 20:07 Interpretation: Normal except: NA 132; GLUC 132. 07/18 19:15 Order name: Lipase; Complete Time: 20:07 07/18 19:15 Order name: Urine Microscopic Only; Complete Time: 20:09 07/18 20:09 Interpretation: URBC 5-10; Reviewed. 07/18 20:10 Order name: Urine Culture EDAK 07/18 19:15 Order name: IV Saline Lock; Complete Time: 19:28 07/18 20:09 Order name: CT Stone Protocol; Complete Time: 20:56 07/18 19:15 Order name: Labs collected and sent; Complete Time: :28 07/18 19:15 Order name: Bladder Scanner: pre and post void; Complete Time: 19:28 cp 07/18 19:15 Order name: García; Complete Time: 20:10 cp 07/18 21:17 Order name: García Leg Bag cp Administered Medications: 20:16 Not Given (Patient Refused): morphine 4 mg IVP once over 4 mins jb4 20:16 Drug: Zofran (Ondansetron) 4 mg Route: IVP; Site: left antecubital; jb4 21:37 Follow up: Response: Nausea is decreased bm7 20:28 Drug: Pepcid (famotidine) 20 mg Route: IVP; Site: left antecubital; bm7 21:36 Follow up: Response: No adverse reaction bm7 20:46 Drug: NS 0.9% 1000 ml Route: IV; Rate: 1 bolus; Site: left antecubital; bm7 21:37 Follow up: IV Status: Completed infusion; IV Intake: 1000ml bm7 21:34 Drug: Cipro (ciprofloxacin) 500 mg Route: PO; bm7 21:36 Follow up: Response: No adverse reaction bm7 21:35 Drug: Rocephin (cefTRIAXone) 1 grams Route: IV; Rate: calculated rate; Site: left bm7 antecubital; 21:36 Follow up: IV Status: Completed infusion bm7 Disposition: 22:50 Co-signature as Attending Physician, Rick Campoverde MD I agree with the assessment and kdr plan of care. Disposition Summary: 07/18/22 20:59 Discharge Ordered Location: Home cp Problem: new cp Symptoms: have improved cp Condition: Stable cp Diagnosis - Other retention of urine cp - Acute prostatitis cp Followup: cp - With: Remington Galvan MD - When: 2 - 3 days - Reason: Recheck today's complaints Discharge Instructions: - Discharge Summary Sheet cp - Prostatitis cp - Acute Urinary Retention, Male cp Forms: - Medication Reconciliation Form cp - Thank You Letter cp - Antibiotic Education cp - Prescription Opioid Use cp Prescriptions: - Cipro 500 mg Oral Tablet - take 1 tablet by ORAL route every 12 hours for 10 days; 20 tablet; Refills: 0, cp Product Selection Permitted - Tramadol 50 mg Oral Tablet - take 1 tablet by ORAL route every 8 hours as needed; 12 tablet; Refills: 0, cp Product Selection Permitted Signatures: Dispatcher [employer] Rick Samayoa MD MD kdr Lui Trinh PA PA cp Bryson, James, RN RN [id number] Sherri Dietrich, ROSEANN RN bm7
[2022-07-18] MEDS ORDERED: CIPROFLOXACIN HCL 500 MG TAB ONE (21:27)
[2022-07-18] MEDS ORDERED: CEFTRIAXONE 1000 MG/VIAL ONE (21:27)
[2022-07-18 23:49] VITALS: TEMP 98.3
[2022-07-19 00:27] VITALS: BP 118/72; O2SAT 99
== END 2022-07-18 21:37 | disposition home or self-care (01) ==
LOC: ER 18:23
DX: R33.8 Other retention of urine (principal); N41.0 Acute prostatitis; M54.50 Low back pain, unspecified; I10 Essential (primary) hypertension; F17.220 Nicotine dependence, chewing tobacco, uncomplicated; Z79.01 Long term (current) use of anticoagulants; Z86.73 Personal history of transient ischemic attack (TIA), and cerebral infarction without residual deficits
CPT/HCPCS: 96361; 87088; 85025; 87086; 36415; 83690; 80053; 76377; 74176; 51702; 96375; 96374; 99285; J7030; J2405; 81003; 81015